=== PATIENT | female | born 1930 | race Caucasian/White ===

== ENCOUNTER 2016-12-30 08:35 | Inpatient (IN) | payer MEDICARE, BC ==
[2016-12-30] MEDS: Sodium Chloride 0.9% 1,000 ML IV SCH ×2 (09:00→23:44)
[2016-12-30] MEDS: Codeine/guaiFENesin 100mg-10 MG/5 ML Syrup 10 ML Cup PO PRN (10:15)
[2016-12-30] MEDS: cefTRIAXone 1 GM in Sodium Chloride 0.9% 50 ML IV SCH (10:21)
[2016-12-30] MEDS ORDERED: Levofloxacin/Dextrose 5%-Water 500 MG in Premix Bag 1 BAG IV SCH (10:30)
--- NOTE | 2016-12-30 10:39 | CR ---
Chest 2V HISTORY: pneumonia COMPARISON: 07/20/2015 FINDINGS: Heart size appears within normal limits. There is no vascular redistribution or pleural fl uid. Atherosclerotic aorta is redemonstrated. Old median sternotomy changes are noted. No acute infi ltrate is identified. There is an old healed fracture posterior lateral right seventh rib. Bony stru ctures are unremarkable. IMPRESSION: No acute chest abnormality or significant interval change compared with 07/20/2015.
[2016-12-30] MEDS: diphenhydrAMINE 25 MG Cap PO PRN (12:48)
[2016-12-30] MEDS: Acetaminophen 325 MG Tab PO PRN ×2 (12:59→21:06)
[2016-12-30] MEDS ORDERED: Ibuprofen 200 MG Tab PO PRN (19:13)
[2016-12-30] MEDS ORDERED: Docusate Sodium 100 MG Cap PO PRN (19:13)
[2016-12-30] MEDS ORDERED: Acetaminophen 325 MG Tab PO PRN (19:13)
[2016-12-30] MEDS ORDERED: traMADol 50 MG Tab PO PRN (19:13)
[2016-12-30] MEDS ORDERED: Pantoprazole 40 MG Tab.CR PO SCH (19:15)
[2016-12-30] MEDS: Albuterol/Ipratropium 3.0-0.5 MG/3 ML Neb Soln NEB SCH ×2 (19:42→23:44)
[2016-12-30] MEDS: Benzonatate 100 MG Cap PO PRN (19:42)
--- NOTE | 2016-12-30 19:59 | PCM.HP ---
H&P History of Present Illness - General Date of Service: 12/30/16 Source of Information: Patient, Family History Limitations: Reports: No limitations - History of Present Illness Initial Comments - Free Text/Narative: She has had a significant cough for one week. She initially had a low-grade fever. 3 days ago chief her Rocephin and started her on Zithromax. The next day I started her on Levaquin as well and the cough continued. She was not sleeping at night and was progressing with yellow material production. Onset of Symptoms: Reports: gradual Symptom Onset Date: 12/23/16 Duration of Symptoms: Reports: Day(s): Location: Reports: chest Improves with: Reports: None Worsens with: Reports: Other (worse with talking and Laying down) Bilateral Chest Pain Score (Numeric/FACES): 8 Generalized Pain Score (Numeric/FACES): 5 - Related Data Allergies/Adverse Reactions: Allergies Allergy/AdvReac Type Severity Reaction Status Date / Time ciprofloxacin HCl Allergy Rash Verified 11/15/15 18:29 [From Cipro] Latex, Natural Rubber Allergy Cannot Verified 11/15/15 18:29 Remember levofloxacin Allergy Rash Verified 12/30/16 12:27 Sulfa (Sulfonamide Allergy Rash Verified 11/15/15 18:29 Antibiotics) diazepam AdvReac Change Verified 11/15/15 18:29 Mental Status fentanyl AdvReac Change Verified 11/15/15 18:29 Mental Status hydrocodone [Hydrocodone] AdvReac Change Verified 11/15/15 18:29 Mental Status hydrocodone bitartrate AdvReac Change Verified 11/15/15 18:29 [From Lorcet 10/650] Mental Status hydromorphone HCl AdvReac Change Verified 11/15/15 18:29 [From Dilaudid] Mental Status morphine AdvReac Change Verified 11/15/15 18:29 Mental Status pregabalin [From Lyrica] AdvReac Change Verified 11/15/15 18:29 Mental Status Home Medications: Home Meds Levothyroxine [Synthroid] 88 mcg PO DAILY 05/28/13 [History] Multivitamin with Minerals [Multiple Vitamin] 1 tab PO DAILY 05/28/13 [History] ALPRAZolam [Xanax] 1 mg PO BEDTIME 05/29/13 [History] Metoprolol Succinate 25 mg PO BID 10/13/14 [History] atorvaSTATin [Lipitor] 40 mg PO DAILY 11/30/14 [History] Pantoprazole Sodium [Protonix] 40 mg PO DAILY 02/28/15 [History] Divalproex Sodium [Depakote ER] 250 mg PO DAILY #60 tab.sr.24h 03/02/15 [Rx] Docusate Sodium [Colace] 100 mg PO DAILY PRN 11/15/15 [History] Calcium Carbonate/Vitamin D3 [Calcium 500 + Vit D 400] 1 tab PO DAILY 03/03/16 [ History] Prazosin [Minpress] 2 mg PO DAILY 03/03/16 [History] Venlafaxine HCl [Venlafaxine ER] 75 mg PO BID 03/03/16 [History] Acetaminophen 650 mg PO BID PRN 12/30/16 [History] Ibuprofen [Advil] 400 mg PO BIDMEALS PRN 12/30/16 [History] traMADol [Ultram] 50 mg PO BID PRN 12/30/16 [History] Past Medical History HEENT History: Reports: Cataract Other HEENT History: removed remnants of tonsils. Cardiovascular History: Reports: Bypass, CAD, Hypertension, Stents Other Cardiovascular History: cabg Respiratory History: Reports: Other (see below) Other Respiratory History: recent cough lasting over a month Genitourinary History: Reports: Renal calculus Musculoskeletal History: Reports: Fibromyalgia Neurological History: Reports: Alzheimers disease, CVA, Seizure, TIA Psychiatric History: Reports: Depression, Suicide attempt, Suicidal ideation Endocrine/Metabolic History: Reports: Hypothyroidism Hematologic History: Reports: Anemia, Blood transfusion(s) Oncologic (Cancer) History: Reports: Basal cell carcinoma Other Oncologic History: Melanoma Dermatologic History: Reports: Melanoma Other Dermatologic History: healing wound to left forehead from a melanoma removal - Infectious Disease History Infectious Disease History: Reports: Chicken pox, Measles, Mumps, Rubella - Past Surgical History Cardiovascular Surgical History: Reports: Coronary artery bypass GI Surgical History: Reports: Cholecystectomy, Hernia, inguinal Female Surgical History: Reports: Lithotripsy/ESWL Musculoskeletal Surgical History: Reports: Knee replacement Social & Family History - Family History Family Medical History: Noncontributory - Tobacco Use Smoking Status *Q: Never Smoker Second Hand Smoke Exposure: No - Caffeine Use Caffeine Use: Reports: Coffee Other Caffeine Use: 2-3 cups per day - Alcohol Use Days Per Week of Alcohol Use: 1 Number of Drinks Per Day: 1 Total Drinks Per Week: 1 - Recreational Drug Use Recreational Drug Use: No H&P Review of Systems - Review of Systems: Review Of Systems: See Below General: Reports: fever, weakness, fatigue HEENT: Reports: sinus congestion, sore throat Pulmonary: Reports: Shortness of Breath, Cough, Sputum Cardiovascular: Reports: no symptoms Gastrointestinal: Reports: No symptoms Genitourinary: Reports: no symptoms Musculoskeletal: Reports: no symptoms Skin: Reports: no symptoms Psychiatric: Reports: anxiety Neurological: Reports: Trouble Speaking Hematologic/Lymphatic: Reports: no symptoms Immunologic: Reports: no symptoms Exam - Exam Exam: See Below - Vital Signs Vital Signs: Last Vital Signs Temp 98.2 F 12/30/16 16:00 Pulse 65 12/30/16 16:00 Resp 16 12/30/16 16:00 BP 149/54 H 12/30/16 16:00 Pulse Ox 96 12/30/16 16:00 Weight: 149 lb 0.52 oz - Exam General: alert, oriented, moderate distress HEENT: PERRLA, Hearing intact, Mucosa moist & pink, Nares patent, Normal nasal septum, Posterior pharynx clear, Conjunctiva clear, EOMI, EACs clear, TMs clear Neck: supple, trachea midline, 2 Lungs: Decreased breath sounds, Wheezing Cardiovascular: regular rate, regular rhythm Abdomen: normal bowel sounds, soft Back Exam: normal inspection, full range of motion, NT Extremities: normal inspection Peripheral Pulses: 1+: radial (L), radial (R) Skin: warm, dry, intact Neuro Extensive - Mental Status: alert, oriented x3, normal cognition, memory intact Neuro Extensive - Motor, Sensory, Reflexes: normal gait DTR: 1+: bicep (L), bicep (R), patella (L), patella (R) Psychiatric: anxious - Patient Data Lab Results last 24 hrs: Laboratory Results - last 24 hr 12/30/16 12/30/16 12/30/16 Range/Units 08:57 08:57 14:38 WBC 6.9 (4.5-11.0) K/uL RBC 3.99 (3.30-5.50) M/uL Hgb 12.6 (12.0-15.0) g/dL Hct 37.1 (36.0-48.0) % MCV 93 (80-98) fL MCH 32 H (27-31) pg MCHC 34 (32-36) % Plt Count 254 (150-400) K/uL Neut % (Auto) 51 (36-66) % Lymph % (Auto) 33 (24-44) % [place] % (Auto) 10 H (2-6) % Eos % (Auto) 4 (2-4) % Baso % (Auto) 2 H (0-1) % Sodium 136 L (140-148) mmol/L Potassium 4.0 (3.6-5.2) mmol/L Chloride 100 (100-108) mmol/L Carbon Dioxide 28 (21-32) mmol/L Anion Gap 12.0 (5.0-14.0) mmol/L BUN 8 (7-18) mg/dL Creatinine 0.7 (0.6-1.0) mg/dL Est Cr Clr Drug Dosing 41.44 mL/min Estimated GFR (MDRD) > 60 (>60) Glucose 94 (74-106) mg/dL Calcium 7.9 L (8.5-10.1) mg/dL Total Bilirubin 0.3 (0.2-1.0) mg/dL AST 19 (15-37) U/L ALT 25 (12-78) U/L Alkaline Phosphatase 113 (46-116) U/L Total Protein 6.8 (6.4-8.2) g/dL Albumin 3.3 L (3.4-5.0) g/dL Globulin 3.5 (2.3-3.5) g/dL Albumin/Globulin Ratio 0.9 L (1.2-2.2) Urine Color Yellow Urine Appearance Clear Urine pH 7.0 (4.5-8.0) Ur Specific [place] 1.010 (1.008-1.030) Urine Protein Negative (NEGATIVE) mg/dL Urine Glucose (UA) Normal (NEGATIVE) mg/dL Urine Ketones Negative (NEGATIVE) mg/dL Urine Occult Blood Moderate (NEGATIVE) Urine Nitrite Negative (NEGATIVE) Urine Bilirubin Negative (NEGATIVE) Urine Urobilinogen Normal (NORMAL) mg/dL Ur Leukocyte Esterase Negative (NEGATIVE) Urine RBC 10-20 H (0-5) Urine WBC 0-5 (0-5) Ur Epithelial Cells Not seen Amorphous Sediment Not seen Urine Bacteria Not seen Urine Mucus Not seen Result Diagrams: 12/30/16 08:57 12/30/16 08:57 Ned Results last 24 hrs: Microbiology 12/30/16 14:38 Gram Stain - Final Sputum - Expectorated *Q Meaningful Use (ADM) - VTE *Q VTE Criteria *Q: - Stroke *Q Stroke Criteria *Q: - AMI *Q AMI Criteria *Q: Problem List Initiated/Reviewed/Updated: Yes Orders Last 24hrs: Active Orders 24 hr Category Date Time Status RT Aerosol Therapy [RC] ASDIRECTED Care 12/30/16 19:17 Active Up ad Grace [RC] ASDIRECTED Care 12/30/16 09:13 Active Vital Signs [RC] Q2H Care 12/30/16 09:14 Active Regular Diet [DIET] Diet 12/30/16 Lunch Active CULTURE RESPIRATORY + SMEAR [RM] Routine Lab 12/30/16 14:38 Results ALPRAZolam [Xanax] Med 12/30/16 21:00 Active 1 mg PO BEDTIME Acetaminophen [Tylenol] Med 12/30/16 19:13 Active 650 mg PO BID PRN Acetaminophen [Tylenol] Med 12/30/16 12:51 Active 650 mg PO Q4H PRN Albuterol/Ipratropium [DuoNeb 3.0-0.5 MG/3 ML] Med 12/30/16 19:30 Active 3 ml NEB Q4H Benzonatate [Tessalon Perles] Med 12/30/16 19:18 Active 100 mg PO QID PRN Calcium Carbonate/Vitamin D3 [Caltrate 600+D 1500 MG- Med 12/30/16 19:15 Active 400 Units] 1 tab PO DAILY Codeine/guaiFENesin [Robitussin AC] Med 12/30/16 09:16 Active 5 - 10 ml PO Q4H PRN Divalproex Sodium [Depakote ER] Med 12/30/16 19:15 Active 250 mg PO DAILY Docusate Sodium [Colace] Med 12/30/16 19:13 Active 100 mg PO DAILY PRN Ibuprofen [Motrin] Med 12/30/16 19:13 Active 400 mg PO BIDMEALS PRN Metoprolol Succinate [Toprol XL] Med 12/30/16 21:00 Active 25 mg PO BID Multivitamins w-Iron/Ca/FA/Min [Thera M Plus] Med 12/30/16 19:15 Active 1 tab PO DAILY Pantoprazole [ProTONIX] Med 12/30/16 19:15 Active 40 mg PO DAILY Prazosin [Minpress] Med 12/30/16 19:15 Active 2 mg PO DAILY Sodium Chloride 0.9% [Normal Saline] 1,000 ml Med 12/30/16 09:15 Active IV ASDIRECTED Venlafaxine [Effexor XR] Med 12/30/16 21:00 Active 75 mg PO BID atorvaSTATin [Lipitor] Med 12/30/16 21:00 Active 40 mg PO BEDTIME cefTRIAXone [Rocephin] 1 gm Med 12/30/16 09:30 Active Sodium Chloride 0.9% [Normal Saline] 50 ml IV Q24H diphenhydrAMINE [Benadryl] Med 12/30/16 12:17 Active 25 mg PO Q6H PRN traMADol [Ultram] Med 12/30/16 19:13 Active 50 mg PO BID PRN Medication Orders Acetaminophen (Tylenol) 650 mg PO Q4H PRN PRN Reason: Pain Last Admin: 12/30/16 12:59 Dose: 650 mg Acetaminophen (Tylenol) 650 mg PO BID PRN PRN Reason: Pain (moderate 4-6) Albuterol/Ipratropium (Duoneb 3.0-0.5 Mg/3 Ml) 3 ml NEB Q4H SUPA Last Admin: 12/30/16 19:42 Dose: 3 ml Alprazolam (Xanax) 1 mg PO BEDTIME SUPA Atorvastatin Calcium (Lipitor) 40 mg PO BEDTIME SUPA Benzonatate (Tessalon Perles) 100 mg PO QID PRN PRN Reason: Cough Last Admin: 12/30/16 19:42 Dose: 100 mg Calcium Carbonate (Caltrate 600+D 1500 Mg-400 Units) 1 tab PO DAILY SUPA Diphenhydramine HCl (Benadryl) 25 mg PO Q6H PRN PRN Reason: Itching Last Admin: 12/30/16 12:48 Dose: 25 mg Divalproex Sodium (Depakote Er) 250 mg PO DAILY SUPA Docusate Sodium (Colace) 100 mg PO DAILY PRN PRN Reason: Constipation Guaifenesin/Codeine Phosphate (Robitussin Ac) 5 - 10 ml PO Q4H PRN PRN Reason: Cough Last Admin: 12/30/16 10:15 Dose: 10 ml Sodium Chloride (Normal Saline) 1,000 mls @ 75 mls/hr IV ASDIRECTED SUPA Last Admin: 12/30/16 09:00 Dose: 75 mls/hr Ceftriaxone Sodium 1 gm/ (Sodium Chloride) 50 mls @ 100 mls/hr IV Q24H SUPA Last Admin: 12/30/16 10:21 Dose: 100 mls/hr Ibuprofen (Motrin) 400 mg PO BIDMEALS PRN PRN Reason: Pain (moderate 4-6) Metoprolol Succinate (Toprol Xl) 25 mg PO BID SUPA Multivitamins/Minerals (Thera M Plus) 1 tab PO DAILY SUPA Pantoprazole Sodium (Protonix) 40 mg PO DAILY SUPA Prazosin HCl (Minpress) 2 mg PO DAILY SUPA Tramadol HCl (Ultram) 50 mg PO BID PRN PRN Reason: Pain (moderate 4-6) Venlafaxine HCl (Effexor Xr) 75 mg PO BID [facility] Assessment/Plan Comment:: Assessment/plan: #1. Acute bronchitis with a violent cough. She is not sleeping I have put her in the hospital and will start respiratory therapy and antibiotics. #2. Atherosclerotic heart disease: Condition stable. #3. Claudication lower extremities: Stable at present #4. Depression. Stable at the present time. #5. Status post cerebrovascular accident with partial aphasia: Condition stable #6. Hypertension: Condition stable #7. Status post seizure activity condition stable. #8. History of breast carcinoma.
[2016-12-30] MEDS: atorvaSTATin 20 MG Tab PO SCH (20:31)
[2016-12-30] MEDS: Metoprolol Succinate 25 MG Tab.ER PO SCH (20:32)
[2016-12-30] MEDS: Calcium Carbonate/Vitamin D3 1500 MG-400 Units Tab PO SCH (20:32)
[2016-12-30] MEDS: Divalproex Sodium 250 MG Tab.ER PO SCH (20:32)
[2016-12-30] MEDS: Prazosin 1 MG Cap PO SCH (20:32)
[2016-12-30] MEDS: ALPRAZolam 0.5 MG Tab PO SCH (20:32)
[2016-12-30] MEDS: Venlafaxine 75 MG Cap.ER PO SCH (20:32)
[2016-12-30] MEDS: Multivitamins with Iron/Calcium/Folic Acid/Minerals Tab PO SCH (20:33)
[2016-12-31] MEDS: Codeine/guaiFENesin 100mg-10 MG/5 ML Syrup 10 ML Cup PO PRN (03:20)
[2016-12-31] MEDS: Benzonatate 100 MG Cap PO PRN ×2 (03:20→22:00)
[2016-12-31] MEDS: Albuterol/Ipratropium 3.0-0.5 MG/3 ML Neb Soln NEB SCH ×6 (03:20→22:20)
[2016-12-31] MEDS ORDERED: Ibuprofen 400 MG Tab PO PRN (07:22)
[2016-12-31] MEDS: Pantoprazole 40 MG Tab.CR PO SCH (08:15)
[2016-12-31] MEDS: cefTRIAXone 1 GM in Sodium Chloride 0.9% 50 ML IV SCH (08:53)
--- NOTE | 2016-12-31 09:32 | CT ---
Chest wo Cont HISTORY: ? pneumonia Axial spiral noncontrasted CT scan of the chest was obtained along with coronal and MIP reconstructi ons. Comparison plain chest radiographs are dated 12/30/2016. FINDINGS: Small to moderate left pleural effusion is present with mild adjacent compressive atelecta sis. No significant right pleural fluid is seen. There is mild atelectasis left lingula. No acute in filtrate is identified. I see no interstitial edema. Heart size is within normal limits. There is calcification in the mitral valve annulus. Prominent co ronary artery calcification is noted. There are old median sternotomy changes. No obvious hilar or m ediastinal mass or adenopathy can be seen. Atherosclerotic aorta is noted. Upper abdominal structure s are unremarkable. IMPRESSION: 1. Small to moderate left pleural effusion with adjacent mild compressive atelectasis. 2. No acute infiltrate or other acute chest abnormality is identified. 3. Atherosclerotic aorta, coronary artery calcification, and mitral valve annulus calcifications are noted. 4. Old median sternotomy changes. Total DLP 577 mGycm
[2016-12-31] MEDS: Divalproex Sodium 250 MG Tab.ER PO SCH (09:45)
[2016-12-31] MEDS: Calcium Carbonate/Vitamin D3 1500 MG-400 Units Tab PO SCH (09:45)
[2016-12-31] MEDS: Venlafaxine 75 MG Cap.ER PO SCH ×2 (09:45→21:57)
[2016-12-31] MEDS: Multivitamins with Iron/Calcium/Folic Acid/Minerals Tab PO SCH (09:45)
[2016-12-31] MEDS: Prazosin 1 MG Cap PO SCH (09:45)
[2016-12-31] MEDS: Metoprolol Succinate 25 MG Tab.ER PO SCH ×2 (09:46→21:57)
[2016-12-31] MEDS ORDERED: Benzocaine/Cetylpyridinium/Menthol Lozenge MUCMEM PRN (17:47)
--- NOTE | 2016-12-31 17:54 | PCM.PN ---
- General Info Date of Service: 12/31/16 Subjective Update: She says coughing has improved significantly. Functional Status: Reports: pain controlled - Review of Systems General: Reports: Fatigue HEENT: Reports: no symptoms Pulmonary: Reports: shortness of breath, cough, wheezing Cardiovascular: Reports: No Symptoms Gastrointestinal: Reports: No symptoms Genitourinary: Reports: no symptoms Musculoskeletal: Reports: no symptoms Skin: Reports: no symptoms Neurological: Reports: No Symptoms Psychiatric: Reports: no symptoms - Patient Data Vitals - most recent: Last Vital Signs Temp 98.8 F 12/31/16 15:00 Pulse 76 12/31/16 15:10 Resp 18 12/31/16 15:00 BP 140/54 L 12/31/16 15:00 Pulse Ox 98 12/31/16 15:00 Weight - most recent: 149 lb 0.52 oz I&O - last 24 hours: Intake & Output 12/31/16 12/31/16 12/31/16 06:59 14:59 22:59 Intake Total 1437 400 300 Balance 1437 400 300 Ned Results last 24 hrs: Microbiology 12/30/16 14:38 Gram Stain - Final Sputum - Expectorated Med Orders - Current: Current Medications Acetaminophen (Tylenol) 650 mg PO Q4H PRN PRN Reason: Pain Last Admin: 12/30/16 21:06 Dose: 650 mg Acetaminophen (Tylenol) 650 mg PO BID PRN PRN Reason: Pain (moderate 4-6) Albuterol/Ipratropium (Duoneb 3.0-0.5 Mg/3 Ml) 3 ml NEB Q4H REPLACED BY [facility] Last Admin: 12/31/16 15:05 Dose: 3 ml Alprazolam (Xanax) 1 mg PO BEDTIME SUPA Last Admin: 12/30/16 20:32 Dose: 1 mg Atorvastatin Calcium (Lipitor) 40 mg PO BEDTIME REPLACED BY [facility] Last Admin: 12/30/16 20:31 Dose: 40 mg Benzocaine/Menthol (Cepacol Sore Throat) 1 lozenge MUCMEM 6XDAY PRN PRN Reason: Sore Throat Benzonatate (Tessalon Perles) 100 mg PO QID PRN PRN Reason: Cough Last Admin: 12/31/16 03:20 Dose: 100 mg Calcium Carbonate (Caltrate 600+D 1500 Mg-400 Units) 1 tab PO DAILY REPLACED BY [facility] Last Admin: 12/31/16 09:45 Dose: 1 tab Diphenhydramine HCl (Benadryl) 25 mg PO Q6H PRN PRN Reason: Itching Last Admin: 12/30/16 12:48 Dose: 25 mg Divalproex Sodium (Depakote Er) 250 mg PO DAILY REPLACED BY [facility] Last Admin: 12/31/16 09:45 Dose: 250 mg Docusate Sodium (Colace) 100 mg PO DAILY PRN PRN Reason: Constipation Last Admin: 12/30/16 21:06 Dose: 100 mg Guaifenesin/Codeine Phosphate (Robitussin Ac) 5 - 10 ml PO Q4H PRN PRN Reason: Cough Last Admin: 12/31/16 03:20 Dose: 10 ml Ceftriaxone Sodium 1 gm/ (Sodium Chloride) 50 mls @ 100 mls/hr IV Q24H REPLACED BY [facility] Last Admin: 12/31/16 08:53 Dose: 100 mls/hr Ibuprofen (Motrin) 400 mg PO BIDMEALS PRN PRN Reason: Pain (moderate 4-6) Metoprolol Succinate (Toprol Xl) 25 mg PO BID REPLACED BY [facility] Last Admin: 12/31/16 09:46 Dose: 25 mg Multivitamins/Minerals (Thera M Plus) 1 tab PO DAILY REPLACED BY [facility] Last Admin: 12/31/16 09:45 Dose: 1 tab Pantoprazole Sodium (Protonix) 40 mg PO DAILY@0730 REPLACED BY [facility] Last Admin: 12/31/16 08:15 Dose: 40 mg Prazosin HCl (Minpress) 2 mg PO DAILY REPLACED BY [facility] Last Admin: 12/31/16 09:45 Dose: 2 mg Tramadol HCl (Ultram) 50 mg PO BID PRN PRN Reason: Pain (moderate 4-6) Last Admin: 12/31/16 15:29 Dose: 50 mg Venlafaxine HCl (Effexor Xr) 75 mg PO BID REPLACED BY [facility] Last Admin: 12/31/16 09:45 Dose: 75 mg Discontinued Medications Albuterol/Ipratropium (Duoneb 3.0-0.5 Mg/3 Ml) 3 ml NEB Q4H REPLACED BY [facility] Last Admin: 12/31/16 07:30 Dose: 3 ml Levofloxacin/Dextrose 500 mg/ (Premix) 100 mls @ 100 mls/hr IV Q24H REPLACED BY [facility] Last Admin: 12/30/16 11:10 Dose: 100 mls/hr Sodium Chloride (Normal Saline) 1,000 mls @ 75 mls/hr IV ASDIRECTED REPLACED BY [facility] Last Admin: 12/30/16 23:44 Dose: 75 mls/hr Ibuprofen (Motrin) 400 mg PO BIDMEALS PRN PRN Reason: Pain (moderate 4-6) Pantoprazole Sodium (Protonix) 40 mg PO DAILY REPLACED BY [facility] Last Admin: 12/30/16 20:32 Dose: 40 mg - Exam General: alert, oriented HEENT: Pupils equal, Pupils reactive, EOMI, Mucous membr. moist/pink Neck: supple Lungs: Other (This morning she still had significant amount of wheezing and this afternoon her lungs are clear. She was able for the first time to take a deep breath without coughing.) Cardiovascular: Regular Rate, Regular Rhythm Abdomen: bowel sounds present, soft, no tenderness, no distension Back Exam: vertebral tenderness Peripheral Pulses: 2+: radial (L), radial (R) Skin: warm, dry, intact - Problem List Review Problem List Initiated/Reviewed/Updated: Yes - My Orders Last 24 Hours: My Active Orders 12/30/16 19:13 Acetaminophen [Tylenol] 650 mg PO BID PRN Docusate Sodium [Colace] 100 mg PO DAILY PRN traMADol [Ultram] 50 mg PO BID PRN 12/30/16 19:15 Calcium Carbonate/Vitamin D3 [Caltrate 600+D 1500 MG-400 Units] 1 tab PO DAILY Divalproex Sodium [Depakote ER] 250 mg PO DAILY Multivitamins w-Iron/Ca/FA/Min [Thera M Plus] 1 tab PO DAILY Prazosin [Minpress] 2 mg PO DAILY 12/30/16 19:17 RT Aerosol Therapy [RC] ASDIRECTED 12/30/16 19:18 Benzonatate [Tessalon Perles] 100 mg PO QID PRN 12/30/16 21:00 ALPRAZolam [Xanax] 1 mg PO BEDTIME Metoprolol Succinate [Toprol XL] 25 mg PO BID Venlafaxine [Effexor XR] 75 mg PO BID atorvaSTATin [Lipitor] 40 mg PO BEDTIME 12/31/16 07:22 Ibuprofen [Motrin] 400 mg PO BIDMEALS PRN 12/31/16 07:30 Pantoprazole [ProTONIX] 40 mg PO DAILY@0730 12/31/16 10:00 Convert IV to Saline Lock [OM.PC] Routine 12/31/16 11:00 Albuterol/Ipratropium [DuoNeb 3.0-0.5 MG/3 ML] 3 ml NEB Q4H 12/31/16 11:58 Sequential Compression Device [OM.PC] Routine 12/31/16 17:47 Benzocaine/Cetylpyrd/Menthol [Cepacol Sore Throat] 1 lozenge MUCMEM 6XDAY PRN - Plan Plan:: Assessment/plan: #1. Acute bronchitis. Her cough has improved significantly we 'll continue with the same medication and will consider discharge home tomorrow if continued improvement. #2. Atherosclerotic heart disease: Condition stable. #3. Claudication lower extremities: Stable at present #4. Depression. Stable #5. Status post cerebrovascular accident with partial aphasia: Condition stable #6. Hypertension: Condition stable #7. Status post seizure activity condition stable. #8. History of breast carcinoma.
[2016-12-31] MEDS: ALPRAZolam 0.5 MG Tab PO SCH (21:57)
[2016-12-31] MEDS: diphenhydrAMINE 25 MG Cap PO PRN (21:57)
[2016-12-31] MEDS: atorvaSTATin 20 MG Tab PO SCH (21:57)
[2017-01-01] MEDS: Albuterol/Ipratropium 3.0-0.5 MG/3 ML Neb Soln NEB SCH ×2 (03:47→07:09)
[2017-01-01] MEDS: Pantoprazole 40 MG Tab.CR PO SCH (07:39)
[2017-01-01 07:51] VITALS: BP 145/54
[2017-01-01] MEDS: Divalproex Sodium 250 MG Tab.ER PO SCH (08:03)
[2017-01-01] MEDS: Metoprolol Succinate 25 MG Tab.ER PO SCH (08:03)
[2017-01-01] MEDS: Prazosin 1 MG Cap PO SCH (08:03)
[2017-01-01] MEDS: Calcium Carbonate/Vitamin D3 1500 MG-400 Units Tab PO SCH (08:03)
[2017-01-01] MEDS: Multivitamins with Iron/Calcium/Folic Acid/Minerals Tab PO SCH (08:04)
[2017-01-01] MEDS: Venlafaxine 75 MG Cap.ER PO SCH (08:04)
--- NOTE | 2017-01-01 08:36 | PCM.DCSUM1 ---
Discharge Summary - Hospital Course Brief History: She has had a significant cough for one week. She initially had a low-grade fever. 3 days ago I gave her Rocephin and started her on Zithromax. The next day I started her on Levaquin as well and the cough continued. She was not sleeping at night and was progressing with yellow material production. - Discharge Data Discharge Date: 01/01/17 Discharge Disposition: Home, Self-Care 01 Condition: Good - Patient Summary/Data Operative Procedure(s) Performed: She's had an esophageal gastroduodenoscopy with biopsy of the fundal polyp and colonoscopy without biopsy or polypectomy Complications: none Hospital Course: She was started on IV Levoquin and had a local skin reaction at the IV site. She gradually improved while in the hospital. S-ray showed no acute pathology. Lobs including cultures were unremarkable. - Patient Instructions Diet: Heart Healthy Diet Activity: As Tolerated Other/Special Instructions: Recheck in the office in one week. - Discharge Plan Home Medications: Home Meds Levothyroxine [Synthroid] 88 mcg PO DAILY 05/28/13 [History] Multivitamin with Minerals [Multiple Vitamin] 1 tab PO DAILY 05/28/13 [History] ALPRAZolam [Xanax] 1 mg PO BEDTIME 05/29/13 [History] Metoprolol Succinate 25 mg PO BID 10/13/14 [History] atorvaSTATin [Lipitor] 40 mg PO DAILY 11/30/14 [History] Pantoprazole Sodium [Protonix] 40 mg PO DAILY 02/28/15 [History] Divalproex Sodium [Depakote ER] 250 mg PO DAILY #60 tab.sr.24h 03/02/15 [Rx] Docusate Sodium [Colace] 100 mg PO DAILY PRN 11/15/15 [History] Calcium Carbonate/Vitamin D3 [Calcium 500 + Vit D 400] 1 tab PO DAILY 03/03/16 [ History] Prazosin [Minpress] 2 mg PO DAILY 03/03/16 [History] Venlafaxine HCl [Venlafaxine ER] 75 mg PO BID 03/03/16 [History] Acetaminophen 650 mg PO BID PRN 12/30/16 [History] Ibuprofen [Advil] 400 mg PO BIDMEALS PRN 12/30/16 [History] traMADol [Ultram] 50 mg PO BID PRN 12/30/16 [History] Codeine/guaiFENesin [Robitussin AC] 5 - 10 ml PO Q4H PRN #0 cup 01/01/17 [Rx] - Patient Data Vitals - Most Recent: Last Vital Signs Temp 99.3 F 01/01/17 07:49 Pulse 86 01/01/17 08:03 Resp 20 01/01/17 07:49 BP 145/54 H 01/01/17 08:03 Pulse Ox 94 L 01/01/17 07:49 Weight - Most Recent: 149 lb 0.52 oz I&O - Last 24 hours: Intake & Output 12/31/16 01/01/17 01/01/17 22:59 06:59 14:59 Intake Total 300 Balance 300 Lab Results - Last 24 hrs: Laboratory Results - last 24 hr 01/01/17 01/01/17 Range/Units 05:23 05:23 WBC 8.2 (4.5-11.0) K/uL RBC 3.72 (3.30-5.50) M/uL Hgb 11.5 L (12.0-15.0) g/dL Hct 35.2 L (36.0-48.0) % MCV 95 (80-98) fL MCH 31 (27-31) pg MCHC 33 (32-36) % Plt Count 246 (150-400) K/uL Neut % (Auto) 58 (36-66) % Lymph % (Auto) 26 (24-44) % [place] % (Auto) 11 H (2-6) % Eos % (Auto) 5 H (2-4) % Baso % (Auto) 1 (0-1) % Sodium 142 (140-148) mmol/L Potassium 4.3 (3.6-5.2) mmol/L Chloride 106 (100-108) mmol/L Carbon Dioxide 30 (21-32) mmol/L Anion Gap 6.5 (5.0-14.0) mmol/L BUN 10 (7-18) mg/dL Creatinine 0.7 (0.6-1.0) mg/dL Est Cr Clr Drug Dosing 41.44 mL/min Estimated GFR (MDRD) > 60 (>60) Glucose 95 (74-106) mg/dL Calcium 8.2 L (8.5-10.1) mg/dL Total Bilirubin 0.3 (0.2-1.0) mg/dL AST 15 (15-37) U/L ALT 22 (12-78) U/L Alkaline Phosphatase 98 (46-116) U/L Total Protein 6.4 (6.4-8.2) g/dL Albumin 3.2 L (3.4-5.0) g/dL Globulin 3.2 (2.3-3.5) g/dL Albumin/Globulin Ratio 1.0 L (1.2-2.2) MOHINDER Results - Last 24 hrs: Microbiology 12/30/16 14:38 Gram Stain - Final Sputum - Expectorated Respiratory Culture - Preliminary YEAST Med Orders - Current: Current Medications Acetaminophen (Tylenol) 650 mg PO Q4H PRN PRN Reason: Pain Last Admin: 12/30/16 21:06 Dose: 650 mg Acetaminophen (Tylenol) 650 mg PO BID PRN PRN Reason: Pain (moderate 4-6) Albuterol/Ipratropium (Duoneb 3.0-0.5 Mg/3 Ml) 3 ml NEB Q4H [facility] Last Admin: 01/01/17 07:09 Dose: 3 ml Alprazolam (Xanax) 1 mg PO BEDTIME SUPA Last Admin: 12/31/16 21:57 Dose: 1 mg Atorvastatin Calcium (Lipitor) 40 mg PO BEDTIME SUPA Last Admin: 12/31/16 21:57 Dose: 40 mg Benzocaine/Menthol (Cepacol Sore Throat) 1 lozenge MUCMEM 6XDAY PRN PRN Reason: Sore Throat Last Admin: 12/31/16 19:45 Dose: 1 radha Benzonatate (Tessalon Perles) 100 mg PO QID PRN PRN Reason: Cough Last Admin: 12/31/16 22:00 Dose: 100 mg Calcium Carbonate (Caltrate 600+D 1500 Mg-400 Units) 1 tab PO DAILY [facility] Last Admin: 01/01/17 08:03 Dose: 1 tab Diphenhydramine HCl (Benadryl) 25 mg PO Q6H PRN PRN Reason: Itching Last Admin: 12/31/16 21:57 Dose: 25 mg Divalproex Sodium (Depakote Er) 250 mg PO DAILY [facility] Last Admin: 01/01/17 08:03 Dose: 250 mg Docusate Sodium (Colace) 100 mg PO DAILY PRN PRN Reason: Constipation Last Admin: 12/30/16 21:06 Dose: 100 mg Guaifenesin/Codeine Phosphate (Robitussin Ac) 5 - 10 ml PO Q4H PRN PRN Reason: Cough Last Admin: 12/31/16 03:20 Dose: 10 ml Ceftriaxone Sodium 1 gm/ (Sodium Chloride) 50 mls @ 100 mls/hr IV Q24H [facility] Last Admin: 12/31/16 08:53 Dose: 100 mls/hr Ibuprofen (Motrin) 400 mg PO BIDMEALS PRN PRN Reason: Pain (moderate 4-6) Last Admin: 12/31/16 21:57 Dose: 400 mg Metoprolol Succinate (Toprol Xl) 25 mg PO BID [facility] Last Admin: 01/01/17 08:03 Dose: 25 mg Multivitamins/Minerals (Thera M Plus) 1 tab PO DAILY [facility] Last Admin: 01/01/17 08:04 Dose: 1 tab Pantoprazole Sodium (Protonix) 40 mg PO DAILY@0730 [facility] Last Admin: 01/01/17 07:39 Dose: 40 mg Prazosin HCl (Minpress) 2 mg PO DAILY [facility] Last Admin: 01/01/17 08:03 Dose: 2 mg Tramadol HCl (Ultram) 50 mg PO BID PRN PRN Reason: Pain (moderate 4-6) Last Admin: 12/31/16 15:29 Dose: 50 mg Venlafaxine HCl (Effexor Xr) 75 mg PO BID [facility] Last Admin: 01/01/17 08:04 Dose: 75 mg Discontinued Medications Albuterol/Ipratropium (Duoneb 3.0-0.5 Mg/3 Ml) 3 ml NEB Q4H [facility] Last Admin: 12/31/16 07:30 Dose: 3 ml Levofloxacin/Dextrose 500 mg/ (Premix) 100 mls @ 100 mls/hr IV Q24H [facility] Last Admin: 12/30/16 11:10 Dose: 100 mls/hr Sodium Chloride (Normal Saline) 1,000 mls @ 75 mls/hr IV ASDIRECTED [facility] Last Admin: 12/30/16 23:44 Dose: 75 mls/hr Ibuprofen (Motrin) 400 mg PO BIDMEALS PRN PRN Reason: Pain (moderate 4-6) Pantoprazole Sodium (Protonix) 40 mg PO DAILY [facility] Last Admin: 12/30/16 20:32 Dose: 40 mg *Q Meaningful Use (DIS) - VTE *Q VTE Criteria *Q: - Stroke *Q Stroke Criteria *Q: - AMI *Q AMI Criteria *Q:
--- NOTE | 2017-01-01 08:36 | PCM.PN ---
- General Info Date of Service: 01/01/17 Functional Status: Reports: pain controlled - Review of Systems General: Reports: No Symptoms, Other HEENT: Reports: no symptoms Pulmonary: Reports: cough, other (Mild cough infrequent presently) Cardiovascular: Reports: No Symptoms Gastrointestinal: Reports: No symptoms Genitourinary: Reports: no symptoms Musculoskeletal: Reports: no symptoms Skin: Reports: no symptoms Neurological: Reports: No Symptoms Psychiatric: Reports: no symptoms - Patient Data Vitals - most recent: Last Vital Signs Temp 99.3 F 01/01/17 07:49 Pulse 86 01/01/17 08:03 Resp 20 01/01/17 07:49 BP 145/54 H 01/01/17 08:03 Pulse Ox 94 L 01/01/17 07:49 Weight - most recent: 149 lb 0.52 oz I&O - last 24 hours: Intake & Output 12/31/16 01/01/17 01/01/17 22:59 06:59 14:59 Intake Total 300 Balance 300 Lab Results last 24 hrs: Laboratory Results - last 24 hr 01/01/17 01/01/17 Range/Units 05:23 05:23 WBC 8.2 (4.5-11.0) K/uL RBC 3.72 (3.30-5.50) M/uL Hgb 11.5 L (12.0-15.0) g/dL Hct 35.2 L (36.0-48.0) % MCV 95 (80-98) fL MCH 31 (27-31) pg MCHC 33 (32-36) % Plt Count 246 (150-400) K/uL Neut % (Auto) 58 (36-66) % Lymph % (Auto) 26 (24-44) % [place] % (Auto) 11 H (2-6) % Eos % (Auto) 5 H (2-4) % Baso % (Auto) 1 (0-1) % Sodium 142 (140-148) mmol/L Potassium 4.3 (3.6-5.2) mmol/L Chloride 106 (100-108) mmol/L Carbon Dioxide 30 (21-32) mmol/L Anion Gap 6.5 (5.0-14.0) mmol/L BUN 10 (7-18) mg/dL Creatinine 0.7 (0.6-1.0) mg/dL Est Cr Clr Drug Dosing 41.44 mL/min Estimated GFR (MDRD) > 60 (>60) Glucose 95 (74-106) mg/dL Calcium 8.2 L (8.5-10.1) mg/dL Total Bilirubin 0.3 (0.2-1.0) mg/dL AST 15 (15-37) U/L ALT 22 (12-78) U/L Alkaline Phosphatase 98 (46-116) U/L Total Protein 6.4 (6.4-8.2) g/dL Albumin 3.2 L (3.4-5.0) g/dL Globulin 3.2 (2.3-3.5) g/dL Albumin/Globulin Ratio 1.0 L (1.2-2.2) Ned Results last 24 hrs: Microbiology 12/30/16 14:38 Gram Stain - Final Sputum - Expectorated Respiratory Culture - Preliminary YEAST Med Orders - Current: Current Medications Acetaminophen (Tylenol) 650 mg PO Q4H PRN PRN Reason: Pain Last Admin: 12/30/16 21:06 Dose: 650 mg Acetaminophen (Tylenol) 650 mg PO BID PRN PRN Reason: Pain (moderate 4-6) Albuterol/Ipratropium (Duoneb 3.0-0.5 Mg/3 Ml) 3 ml NEB Q4H [facility] Last Admin: 01/01/17 07:09 Dose: 3 ml Alprazolam (Xanax) 1 mg PO BEDTIME [facility] Last Admin: 12/31/16 21:57 Dose: 1 mg Atorvastatin Calcium (Lipitor) 40 mg PO BEDTIME [facility] Last Admin: 12/31/16 21:57 Dose: 40 mg Benzocaine/Menthol (Cepacol Sore Throat) 1 lozenge MUCMEM 6XDAY PRN PRN Reason: Sore Throat Last Admin: 12/31/16 19:45 Dose: 1 radha Benzonatate (Tessalon Perles) 100 mg PO QID PRN PRN Reason: Cough Last Admin: 12/31/16 22:00 Dose: 100 mg Calcium Carbonate (Caltrate 600+D 1500 Mg-400 Units) 1 tab PO DAILY [facility] Last Admin: 01/01/17 08:03 Dose: 1 tab Diphenhydramine HCl (Benadryl) 25 mg PO Q6H PRN PRN Reason: Itching Last Admin: 12/31/16 21:57 Dose: 25 mg Divalproex Sodium (Depakote Er) 250 mg PO DAILY [facility] Last Admin: 01/01/17 08:03 Dose: 250 mg Docusate Sodium (Colace) 100 mg PO DAILY PRN PRN Reason: Constipation Last Admin: 12/30/16 21:06 Dose: 100 mg Guaifenesin/Codeine Phosphate (Robitussin Ac) 5 - 10 ml PO Q4H PRN PRN Reason: Cough Last Admin: 12/31/16 03:20 Dose: 10 ml Ceftriaxone Sodium 1 gm/ (Sodium Chloride) 50 mls @ 100 mls/hr IV Q24H [facility] Last Admin: 12/31/16 08:53 Dose: 100 mls/hr Ibuprofen (Motrin) 400 mg PO BIDMEALS PRN PRN Reason: Pain (moderate 4-6) Last Admin: 12/31/16 21:57 Dose: 400 mg Metoprolol Succinate (Toprol Xl) 25 mg PO BID [facility] Last Admin: 01/01/17 08:03 Dose: 25 mg Multivitamins/Minerals (Thera M Plus) 1 tab PO DAILY [facility] Last Admin: 01/01/17 08:04 Dose: 1 tab Pantoprazole Sodium (Protonix) 40 mg PO DAILY@0730 [facility] Last Admin: 01/01/17 07:39 Dose: 40 mg Prazosin HCl (Minpress) 2 mg PO DAILY [facility] Last Admin: 01/01/17 08:03 Dose: 2 mg Tramadol HCl (Ultram) 50 mg PO BID PRN PRN Reason: Pain (moderate 4-6) Last Admin: 12/31/16 15:29 Dose: 50 mg Venlafaxine HCl (Effexor Xr) 75 mg PO BID [facility] Last Admin: 01/01/17 08:04 Dose: 75 mg Discontinued Medications Albuterol/Ipratropium (Duoneb 3.0-0.5 Mg/3 Ml) 3 ml NEB Q4H [facility] Last Admin: 12/31/16 07:30 Dose: 3 ml Levofloxacin/Dextrose 500 mg/ (Premix) 100 mls @ 100 mls/hr IV Q24H [facility] Last Admin: 12/30/16 11:10 Dose: 100 mls/hr Sodium Chloride (Normal Saline) 1,000 mls @ 75 mls/hr IV ASDIRECTED [facility] Last Admin: 12/30/16 23:44 Dose: 75 mls/hr Ibuprofen (Motrin) 400 mg PO BIDMEALS PRN PRN Reason: Pain (moderate 4-6) Pantoprazole Sodium (Protonix) 40 mg PO DAILY [facility] Last Admin: 12/30/16 20:32 Dose: 40 mg - Exam General: alert HEENT: Pupils equal, Pupils reactive, EOMI, Mucous membr. moist/pink Neck: supple Lungs: Clear to auscultation, Normal respiratory effort Cardiovascular: Regular Rate, Regular Rhythm Abdomen: bowel sounds present, soft, no tenderness, no distension Extremities: no edema Peripheral Pulses: 2+: radial (L), radial (R) Skin: warm, dry, intact Psy/Mental Status: alert, normal affect, normal mood - Problem List Review Problem List Initiated/Reviewed/Updated: Yes - My Orders Last 24 Hours: My Active Orders 12/31/16 10:00 Convert IV to Saline Lock [OM.PC] Routine 12/31/16 11:00 Albuterol/Ipratropium [DuoNeb 3.0-0.5 MG/3 ML] 3 ml NEB Q4H 12/31/16 11:58 Sequential Compression Device [OM.PC] Routine 12/31/16 17:47 Benzocaine/Cetylpyrd/Menthol [Cepacol Sore Throat] 1 lozenge MUCMEM 6XDAY PRN - Plan Plan:: Assessment/plan: #1. Acute bronchitis Mush improved will discharge home today. #2. Atherosclerotic heart disease: Condition stable. #3. Claudication lower extremities: Stable at present #4. Depression. Stable at the present time. #5. Status post cerebrovascular accident with partial aphasia: Condition stable #6. Hypertension: Condition stable #7. Status post seizure activity condition stable. #8. History of breast carcinoma.
== END 2017-01-01 10:15 | disposition home or self-care (01) | DRG 203 ==
LOC: JP.ICU 08:35
PROVIDERS: ADMIT Internal Medicine; ATTEND Internal Medicine
DX: J20.9 Acute bronchitis, unspecified (principal); I69.920 Aphasia following unspecified cerebrovascular disease; I10 Essential (primary) hypertension; I25.10 Atherosclerotic heart disease of native coronary artery without angina pectoris; Z95.1 Presence of aortocoronary bypass graft; Z95.5 Presence of coronary angioplasty implant and graft; E03.9 Hypothyroidism, unspecified; M79.7 Fibromyalgia; G40.909 Epilepsy, unspecified, not intractable, without status epilepticus; F32.9 Major depressive disorder, single episode, unspecified; Z91.5 Personal history of self-harm; Z85.3 Personal history of malignant neoplasm of breast; Z85.820 Personal history of malignant melanoma of skin; Z85.828 Personal history of other malignant neoplasm of skin; I73.9 Peripheral vascular disease, unspecified; Z96.659 Presence of unspecified artificial knee joint; Z88.1 Allergy status to other antibiotic agents; Z91.040 Latex allergy status; Z88.5 Allergy status to narcotic agent; Z88.2 Allergy status to sulfonamides; Z88.8 Allergy status to other drugs, medicaments and biological substances; R05 Cough
CPT/HCPCS: 36415; 71020; 71020-26; 71250; 71250-26; 80053; 81001; 85025; 87070; 87077; 87205; 94640-76; A9270-GY; J0696; J1956; J7040; J7050; J7620

== ENCOUNTER 2017-05-06 12:20 | Inpatient (IN) | payer MEDICARE, BC ==
--- NOTE | 2017-05-06 12:46 | EDM.PDOC ---
ED HPI GENERAL MEDICAL PROBLEM - General Chief Complaint: Abdominal Pain Stated Complaint: [facility] Time Seen by Provider: 05/06/17 12:25 Source of Information: Reports: EMS, Family History Limitations: Denies: Physical Impairment (Patient isn't communicating) - History of Present Illness INITIAL COMMENTS - FREE TEXT/NARRATIVE: 86-year-old female brought in by EMS with worsening abdominal pain, shortness of breath and malaise. She initially did not want to come into the emergency room but was told we may be able to help her breathe so she decided to come in. 12-lead EKG done by EMS shows a minimal amount of ST depression in V1 and V2 otherwise no ST-T changes. She is not complaining of chest pain specifically. She had one bowel movement this morning, was able to eat a small amount of breakfast and had a cup of coffee. She looks uncomfortable, isn't communicating at this time. Onset: Gradual (Over the past 2-3 days) Location: Reports: Abdomen Severity: Moderate Associated Symptoms: Reports: Loss of Appetite, Malaise, Shortness of Breath, Weakness. Denies: Chest Pain, Fever/Chills - Related Data Allergies Allergy/AdvReac Type Severity Reaction Status Date / Time ciprofloxacin HCl Allergy Rash Verified 05/06/17 12:32 [From Cipro] Latex, Natural Rubber Allergy Cannot Verified 05/06/17 12:32 Remember levofloxacin Allergy Rash Verified 05/06/17 12:32 Sulfa (Sulfonamide Allergy Rash Verified 05/06/17 12:32 Antibiotics) diazepam AdvReac Change Verified 05/06/17 12:32 Mental Status fentanyl AdvReac Change Verified 05/06/17 12:32 Mental Status hydrocodone [Hydrocodone] AdvReac Change Verified 05/06/17 12:32 Mental Status hydrocodone bitartrate AdvReac Change Verified 05/06/17 12:32 [From Lorcet 10/650] Mental Status hydromorphone HCl AdvReac Change Verified 05/06/17 12:32 [From Dilaudid] Mental Status morphine AdvReac Change Verified 05/06/17 12:32 Mental Status pregabalin [From Lyrica] AdvReac Change Verified 05/06/17 12:32 Mental Status Home Meds: Home Meds Levothyroxine [Synthroid] 88 mcg PO DAILY 05/28/13 [History] Multivitamin with Minerals [Multiple Vitamin] 1 tab PO DAILY 05/28/13 [History] ALPRAZolam [Xanax] 1 mg PO BEDTIME 05/29/13 [History] atorvaSTATin [Lipitor] 40 mg PO DAILY 11/30/14 [History] Pantoprazole Sodium [Protonix] 40 mg PO DAILY 02/28/15 [History] Divalproex Sodium [Depakote ER] 250 mg PO DAILY #60 tab.sr.24h 03/02/15 [Rx] Docusate Sodium [Colace] 100 mg PO DAILY PRN 11/15/15 [History] Calcium Carbonate/Vitamin D3 [Calcium 500 + Vit D 400] 1 tab PO DAILY 03/03/16 [ History] Prazosin [Minpress] 2 mg PO DAILY 03/03/16 [History] Venlafaxine HCl [Venlafaxine ER] 75 mg PO BID 03/03/16 [History] Acetaminophen 650 mg PO BID PRN 12/30/16 [History] Ibuprofen [Advil] 400 mg PO BIDMEALS PRN 12/30/16 [History] Codeine/guaiFENesin [Robitussin AC] 5 - 10 ml PO Q4H PRN #0 cup 01/01/17 [Rx] Metoprolol Succinate [Toprol XL] 100 mg PO DAILY 05/06/17 [History] Past Medical History HEENT History: Reports: Cataract Other HEENT History: removed remnants of tonsils. Cardiovascular History: Reports: Bypass, CAD, Hypertension, Stents Other Cardiovascular History: cabg Respiratory History: Reports: Other (See Below) Other Respiratory History: recent cough lasting over a month Genitourinary History: Reports: Renal Calculus Musculoskeletal History: Reports: Fibromyalgia Neurological History: Reports: Alzheimers Disease, CVA, Seizure, TIA Psychiatric History: Reports: Depression, Suicide Attempt, Suicidal Ideation Endocrine/Metabolic History: Reports: Hypothyroidism Hematologic History: Reports: Anemia, Blood Transfusion(s) Oncologic (Cancer) History: Reports: Basal Cell Carcinoma Other Oncologic History: Melanoma Dermatologic History: Reports: Melanoma Other Dermatologic History: healing wound to left forehead from a melanoma removal - Infectious Disease History Infectious Disease History: Reports: Chicken Pox, Measles, Mumps, Rubella - Past Surgical History Cardiovascular Surgical History: Reports: Coronary Artery Bypass GI Surgical History: Reports: Cholecystectomy, Hernia, Inguinal Musculoskeletal Surgical History: Reports: Knee Replacement Social & Family History - Family History Family Medical History: Noncontributory - Tobacco Use Smoking Status *Q: Never Smoker Second Hand Smoke Exposure: No - Caffeine Use Caffeine Use: Reports: Coffee Other Caffeine Use: 2-3 cups per day - Alcohol Use Days Per Week of Alcohol Use: 1 Number of Drinks Per Day: 1 Total Drinks Per Week: 1 - Recreational Drug Use Recreational Drug Use: No ED ROS GENERAL - Review of Systems Review Of Systems: See Below Constitutional: Reports: Malaise, Weakness. Denies: Fever, Chills HEENT: Reports: No Symptoms Respiratory: Reports: Shortness of Breath, Wheezing Cardiovascular: Denies: Chest Pain GI/Abdominal: Reports: Abdominal Pain. Denies: Constipation, Diarrhea : Reports: No Symptoms Skin: Reports: Pallor Neurological: Reports: Confusion, Trouble Speaking ED EXAM, GI/ABD - Physical Exam Exam: See Below Exam Limited By: No Limitations General Appearance: Alert, No Apparent Distress (Not distressed but looks uncomfortable) Eyes: Bilateral: Normal Appearance (No jaundice) Respiratory/Chest: No Respiratory Distress, Decreased Breath Sounds (She has decreased breath sounds on the left side but there is also some wheezing present ), Wheezing (Diffuse inspiratory and expiratory wheezes are heard faintly) Cardiovascular: Regular Rate, Rhythm GI/Abdominal Exam: Distended (Moderate distended abdomen is possible), Tender ( Tender to palpation especially across the upper abdomen), Abnormal Bowel Sounds (Hypoactive bowel sounds) Extremities: Normal Inspection. No: Pedal Edema Neurological: Alert, Confused, Disoriented Psychiatric: Anxious Skin Exam: Warm, Dry Course - Vital Signs Last Recorded V/S: Last Vital Signs Temp 98.6 F 05/06/17 17:25 Pulse 66 05/06/17 17:25 Resp 16 05/06/17 17:25 BP 168/81 H 05/06/17 17:25 Pulse Ox 94 L 05/06/17 17:25 - Orders/Labs/Meds Orders: Medication Orders Divalproex Sodium (Depakote Er) 250 mg PO BEDTIME [facility] Docusate Sodium (Colace) 100 mg PO DAILY PRN PRN Reason: Constipation Levothyroxine Sodium (Synthroid) 88 mcg PO DAILY@0730 [facility] Metoprolol Succinate (Toprol Xl) 25 mg PO BID [facility] Multivitamins/Minerals (Thera M Plus) 1 tab PO DAILY [facility] Pantoprazole Sodium (Protonix) 40 mg PO ACBREAKFAST [facility] Prazosin HCl (Minpress) 2 mg PO DAILY [facility] Sodium Chloride (Saline Flush) 10 ml FLUSH ASDIRECTED PRN PRN Reason: Keep Vein Open Venlafaxine HCl (Effexor Xr) 75 mg PO BID [facility] Labs: Laboratory Tests 05/06/17 05/06/17 Range/Units 12:50 12:50 WBC 11.6 H (4.5-11.0) K/uL RBC 4.35 (3.30-5.50) M/uL Hgb 13.3 (12.0-15.0) g/dL Hct 39.4 (36.0-48.0) % MCV 91 (80-98) fL MCH 31 (27-31) pg MCHC 34 (32-36) % Plt Count 289 (150-400) K/uL Neut % (Auto) 78 H (36-66) % Lymph % (Auto) 12 L (24-44) % [place] % (Auto) 8 H (2-6) % Eos % (Auto) 2 (2-4) % Baso % (Auto) 1 (0-1) % Sodium 127 L (140-148) mmol/L Potassium 3.9 (3.6-5.2) mmol/L Chloride 92 L (100-108) mmol/L Carbon Dioxide 27 (21-32) mmol/L Anion Gap 11.9 (5.0-14.0) mmol/L BUN 13 (7-18) mg/dL Creatinine 0.7 (0.6-1.0) mg/dL Est Cr Clr Drug Dosing 41.44 mL/min Estimated GFR (MDRD) > 60 (>60) Glucose 131 H (74-106) mg/dL Calcium 8.3 L (8.5-10.1) mg/dL Total Bilirubin 0.4 (0.2-1.0) mg/dL AST 27 D (15-37) U/L ALT 39 D (12-78) U/L Alkaline Phosphatase 112 (46-116) U/L Troponin I < 0.017 (0.000-0.056) ng/mL Total Protein 7.4 (6.4-8.2) g/dL Albumin 3.7 (3.4-5.0) g/dL Globulin 3.7 H (2.3-3.5) g/dL Albumin/Globulin Ratio 1.0 L (1.2-2.2) Meds: Medications Generic Name Dose Route Start Last Admin Trade Name Freq PRN Reason Stop Dose Admin Divalproex Sodium 250 mg 05/06/17 21:00 Depakote Er PO BEDTIME SU[facility] Docusate Sodium 100 mg 05/06/17 14:41 Colace PO DAILY PRN Constipation Levothyroxine Sodium 88 mcg 05/07/17 07:30 Synthroid PO DAILY@0730 [facility] Metoprolol Succinate 25 mg 05/06/17 21:00 Toprol Xl PO BID [facility] Multivitamins/Minerals 1 tab 05/07/17 09:00 Thera M Plus PO DAILY [facility] Pantoprazole Sodium 40 mg 05/07/17 07:30 Protonix PO ACBREAKFAST [facility] Prazosin HCl 2 mg 05/07/17 09:00 Minpress PO DAILY [facility] Sodium Chloride 10 ml 05/06/17 14:37 Saline Flush FLUSH ASDIRECTED PRN Keep Vein Open Venlafaxine HCl 75 mg 05/06/17 21:00 Effexor Xr PO BID [facility] - Re-Assessments/Exams Free Text/Narrative Re-Assessment/Exam: 05/06/17 12:44 CBC, CMP were obtained with the intention of getting a CT scan of the abdomen. 05/06/17 14:10 A chest x-ray as well as a CT scan of the abdomen and pelvis were obtained. She has a very large left pleural effusion with underlying atelectasis or possible pneumonia. No masses seen. I discussed this with her primary care provider Dr. Gomez and he will come over to see the patient and admit her for pleurocentesis. Departure - Departure Time of Disposition: 17:22 Disposition: Admitted As Inpatient 66 Condition: Poor Clinical Impression: Pleural effusion Dyspnea Qualifiers: Dyspnea type: shortness of breath Qualified Code(s): R06.02 - Shortness of breath - Discharge Information
--- NOTE | 2017-05-06 14:05 | CT ---
Abdomen Pelvis wo Cont HISTORY: abdominal pain, cough Axial spiral noncontrasted CT scan of the abdomen and pelvis was obtained along with coronal reconst ructions. COMPARISON: CT chest, 12/31/2016. FINDINGS: Large left pleural effusion is present with prominent atelectasis left lower lobe. There i s a moderately large right pleural effusion with mild adjacent compressive atelectasis. Respiratory motion artifact is noted limiting the exam. There is mild cardiomegaly. Atherosclerotic aorta and co ronary artery calcification are noted. Calcification can be seen in the mitral valve annulus. Old me [place] sternotomy changes are noted. Lack of IV contrast limits somatic evaluation. No obvious focal abnormality of the liver, spleen, pa ncreas, or adrenal glands is identified. Gallbladder is surgically absent. No biliary duct dilatatio n can be seen. No obvious renal mass or hydronephrosis is identified. I see no definite renal or ure teral calculi. No ureteral dilatation is seen. No pelvic mass is identified. A few diverticula are noted in the sigmoid colon. I see no signs of ac [place] diverticulitis. There is small amount of free fluid is noted in the lower pelvis. I see no pelvi c, retroperitoneal, or mesenteric adenopathy. No free air is identified. Small bowel loops are nondi stended. No other colon abnormality is seen. Appendix is not definitely identified. I see no inflamm ation or fluid about the base of the cecum. Diffuse degenerative changes are noted lower thoracic an d lumbar spine. There is slight rotoscoliosis of the lumbar spine convex to the right. No obvious ly tic or blastic bony lesion is seen. IMPRESSION: 1. Mild cardiomegaly. Large left pleural effusion with near complete atelectasis left lower lobe. r bronchograms are noted left lower lobe. Recommend clinical correlation for signs of acute CHF or f luid overload. Pneumonia is not excluded. Underlying malignancy is not excluded. 2. Moderately large right pleural effusion with mild adjacent compressive atelectasis. 3. Atherosclerotic aorta, coronary artery calcification, mitral valve annulus calcification, an old median sternotomy changes are noted. 4. Status post cholecystectomy. 5. A trace amount of free fluid can be seen in the pelvic cul-de-sac. 6. A few innocent appearing diverticula are noted in the sigmoid colon. 7. No other acute intra-abdominal or pelvic abnormality is identified. 8. Exam is limited by motion artifact and lack of contrast. Findings were discussed with Dr. Banegas in the Emergency Department at 1358 hours. Total DLP 767 mGycm
--- NOTE | 2017-05-06 14:09 | CR ---
Chest 1V Frontal HISTORY: cough, dyspnea COMPARISON: 12/30/2016 FINDINGS: Mild cardiomegaly appears similar to the prior exam. Old median sternotomy changes and ath erosclerotic aorta are redemonstrated. Superior pulmonary vasculature is prominent. There is a large left pleural effusion. Large subpulmonic component of effusion is seen on the accompanying CT exam. No definite right pleural fluid can see, however, there is a moderately large amount of right pleur al fluid on today's CT abdomen and pelvis study. Interstitial lung pattern is prominent diffusely. B heena structures are osteopenic. IMPRESSION: Cardiomegaly with vascular redistribution, probable interstitial edema, and pleural effu sions. Pleural fluid is better visualized and pleural effusions appear larger on today's CT abdomen and pelvis study. Recommend clinical correlation for acute CHF.
[2017-05-06] MEDS ORDERED: Sodium Chloride 0.9% 10 ML Syringe FLUSH PRN (14:37)
[2017-05-06] MEDS ORDERED: Docusate Sodium 100 MG Cap PO PRN (14:41)
--- NOTE | 2017-05-06 20:02 | PCM.HP ---
H&P History of Present Illness - General Date of Service: 05/06/17 Admit Problem/Dx: Admission Diagnosis/Problem Admission Diagnosis/Problem Congestive heart failure Source of Information: Patient, Family - History of Present Illness Initial Comments - Free Text/Narative: Gradual increase in shortness of kbreath over the last 3-4 days and became much worse this afternoon and came into the ER by EMS. She has a history of ASHD. Left Back Pain Score (Numeric/FACES): 3 Bilateral Leg Pain Score (Numeric/FACES): 7 Middle Abdominal Pain Score (Numeric/FACES): 3 Generalized Pain Score (Numeric/FACES): 7 - Related Data Allergies/Adverse Reactions: Allergies Allergy/AdvReac Type Severity Reaction Status Date / Time ciprofloxacin HCl Allergy Rash Verified 05/06/17 12:32 [From Cipro] Latex, Natural Rubber Allergy Cannot Verified 05/06/17 12:32 Remember levofloxacin Allergy Rash Verified 05/06/17 12:32 Sulfa (Sulfonamide Allergy Rash Verified 05/06/17 12:32 Antibiotics) diazepam AdvReac Change Verified 05/06/17 12:32 Mental Status fentanyl AdvReac Change Verified 05/06/17 12:32 Mental Status hydrocodone [Hydrocodone] AdvReac Change Verified 05/06/17 12:32 Mental Status hydrocodone bitartrate AdvReac Change Verified 05/06/17 12:32 [From Lorcet 10/650] Mental Status hydromorphone HCl AdvReac Change Verified 05/06/17 12:32 [From Dilaudid] Mental Status morphine AdvReac Change Verified 05/06/17 12:32 Mental Status pregabalin [From Lyrica] AdvReac Change Verified 05/06/17 12:32 Mental Status Home Medications: Home Meds Levothyroxine [Synthroid] 88 mcg PO DAILY 05/28/13 [History] Multivitamin with Minerals [Multiple Vitamin] 1 tab PO DAILY 05/28/13 [History] ALPRAZolam [Xanax] 1 mg PO BEDTIME 05/29/13 [History] atorvaSTATin [Lipitor] 40 mg PO DAILY 11/30/14 [History] Pantoprazole Sodium [Protonix] 40 mg PO DAILY 02/28/15 [History] Divalproex Sodium [Depakote ER] 250 mg PO DAILY #60 tab.sr.24h 03/02/15 [Rx] Docusate Sodium [Colace] 100 mg PO DAILY PRN 11/15/15 [History] Calcium Carbonate/Vitamin D3 [Calcium 500 + Vit D 400] 1 tab PO DAILY 03/03/16 [ History] Prazosin [Minpress] 2 mg PO DAILY 03/03/16 [History] Venlafaxine HCl [Venlafaxine ER] 75 mg PO BID 03/03/16 [History] Acetaminophen 650 mg PO BID PRN 12/30/16 [History] Ibuprofen [Advil] 400 mg PO BIDMEALS PRN 12/30/16 [History] Codeine/guaiFENesin [Robitussin AC] 5 - 10 ml PO Q4H PRN #0 cup 01/01/17 [Rx] Metoprolol Succinate [Toprol XL] 100 mg PO DAILY 05/06/17 [History] Acetaminophen [Tylenol] 650 mg PO BID 05/07/17 [History] traMADol HCl [Ultram] 50 mg PO BID 05/07/17 [History] Past Medical History HEENT History: Reports: Cataract, Hard of Hearing, Impaired Vision Other HEENT History: removed remnants of tonsils. Cardiovascular History: Reports: Bypass, CAD, Hypertension, Stents Other Cardiovascular History: cabg Respiratory History: Reports: Other (See Below) Other Respiratory History: pleural effusion this hospital stay, recent cough lasting over a month Genitourinary History: Reports: Renal Calculus Musculoskeletal History: Reports: Fibromyalgia Neurological History: Reports: CVA, Seizure, TIA, Other (See Below) Other Neuro History: CVA affecting Rt side per family Psychiatric History: Reports: Depression, Suicide Attempt, Suicidal Ideation Endocrine/Metabolic History: Reports: Hypothyroidism Hematologic History: Reports: Anemia, Blood Transfusion(s) Oncologic (Cancer) History: Reports: Basal Cell Carcinoma, Breast Other Oncologic History: Melanoma Dermatologic History: Reports: Melanoma Other Dermatologic History: healing wound to left forehead from a melanoma removal - Infectious Disease History Infectious Disease History: Reports: Chicken Pox, Measles, Mumps, Rubella - Past Surgical History Cardiovascular Surgical History: Reports: Coronary Artery Bypass Respiratory Surgical History: Reports: Thoracentesis GI Surgical History: Reports: Cholecystectomy, Hernia, Inguinal Female Surgical History: Reports: Mastectomy, Other (See Below) Other Female Surgeries/Procedures: breast ca and mastectomy Rt side Musculoskeletal Surgical History: Reports: Knee Replacement Oncologic Surgical History: Reports: Mastectomy, Other (See Below) Other Oncologic Surgeries/Procedures: Rt side Social & Family History - Family History Family Medical History: Noncontributory HEENT: Reports: None : Reports: Other (See Below) Other Family History: son, kidney transplant Oncologic: Reports: Pancreatic, Other (See Below) Other Oncologic Family History: son from pancreatic ca - Tobacco Use Smoking Status *Q: Never Smoker Second Hand Smoke Exposure: No - Caffeine Use Caffeine Use: Reports: Coffee Other Caffeine Use: 2-3 cups per day - Alcohol Use Days Per Week of Alcohol Use: 1 Number of Drinks Per Day: 1 Total Drinks Per Week: 1 - Recreational Drug Use Recreational Drug Use: No H&P Review of Systems - Review of Systems: Review Of Systems: See Below General: Reports: Weakness, Decreased Appetite HEENT: Reports: Sinus Congestion Pulmonary: Reports: Shortness of Breath, Wheezing, Cough, Sputum Cardiovascular: Reports: Dyspnea on Exertion Gastrointestinal: Reports: No Symptoms Genitourinary: Reports: No Symptoms Psychiatric: Reports: Depression Neurological: Reports: Difficulty Walking, Weakness, Gait Disturbance Exam - Exam Exam: See Below - Vital Signs Vital Signs: Last Vital Signs Temp 99.0 F 05/06/17 19:33 Pulse 67 05/06/17 19:33 Resp 20 05/06/17 19:33 BP 162/63 H 05/06/17 19:33 Pulse Ox 90 L 05/06/17 19:33 Weight: 149 lb 0.52 oz - Exam General: Oriented, Moderate Distress HEENT: PERRLA, Hearing Intact, Mucosa Moist & [place], Nares Patent, Normal Nasal Septum, Posterior Pharynx Clear, Conjunctiva Clear, EOMI, EACs Clear, TMs Clear Neck: Supple, Trachea Midline, 2 Lungs: Decreased Breath Sounds Cardiovascular: Regular Rate, Regular Rhythm GI/Abdominal Exam: Distended, Tender Extremities: Non-Tender Skin: Warm, Dry DTR: 1+: Bicep (L), Bicep (R) Psychiatric: Anxious - Patient Data Lab Results Last 24 hrs: Laboratory Results - last 24 hr 05/06/17 05/06/17 Range/Units 17:18 17:18 Fluid Type Thoracentesis fluid Thoracentesis fluid Fluid WBC 217 /ul Fluid RBC 520 /ul Fluid Mononuclear Cell 97 % Fl Polymorphonucl Cell 3 % Fluid Total Protein 2.2 g/dL Fluid LDH 47 IU/L Result Diagrams: 05/12/17 05:56 05/12/17 05:56 Ned Results Last 24 hrs: Microbiology 05/06/17 17:18 Gram Stain - Final Thoracentesis Fluid *Q Meaningful Use (ADM) - VTE *Q VTE Criteria *Q: - Stroke *Q Stroke Criteria *Q: - AMI *Q AMI Criteria *Q: Problem List Initiated/Reviewed/Updated: Yes Orders Last 24hrs: Active Orders 24 hr Category Date Time Status Overnight Pulse Oximetry [RC] Click to Edit Care 05/06/17 19:28 Active Cardiac Diet [Heart Healthy Diet] [DIET] Diet 05/06/17 Dinner Active Chest 1V Frontal [CR] Routine Exams 05/06/17 17:35 Taken US Guidance Thoracentesis NC [US] Stat Exams 05/06/17 15:20 Taken CELL COUNT,BODY FLUID [BF] Routine Lab 05/06/17 17:18 Results CULTURE BODY FLUID + SMEAR [RM] Routine Lab 05/06/17 17:18 Results SPECIFIC GRAVITY,FLUID [REF] Routine Lab 05/06/17 17:18 Received ALPRAZolam [Xanax] Med 05/06/17 21:00 Ordered 1 mg PO BEDTIME Codeine/guaiFENesin [Robitussin AC] Med 05/06/17 19:53 Ordered 5 - 10 ml PO Q4H PRN Divalproex Sodium [Depakote ER] Med 05/06/17 21:00 Active 250 mg PO BEDTIME Docusate Sodium [Colace] Med 05/06/17 14:41 Active 100 mg PO DAILY PRN Levothyroxine [Synthroid] Med 05/07/17 07:30 Active 88 mcg PO DAILY@0730 Metoprolol Succinate [Toprol XL] Med 05/07/17 09:00 Ordered 100 mg PO DAILY Multivitamins w-Iron/Ca/FA/Min [Thera M Plus] Med 05/07/17 09:00 Active 1 tab PO DAILY Pantoprazole [ProTONIX] Med 05/07/17 07:30 Active 40 mg PO ACBREAKFAST Prazosin [Minpress] Med 05/07/17 09:00 Active 2 mg PO DAILY Venlafaxine [Effexor XR] Med 05/06/17 21:00 Active 75 mg PO BID Pulse Oximetry Continuous Monitoring [OM.PC] Routine Oth 05/06/17 19:28 Ordered SCD [Sequential Compression Device] [OM.PC] Routine Oth 05/06/17 19:31 Ordered Ultrasound Chest Marking [OM.PC] Routine Ot 05/06/17 14:44 Ordered Medication Orders Divalproex Sodium (Depakote Er) 250 mg PO BEDTIME SUPA Docusate Sodium (Colace) 100 mg PO DAILY PRN PRN Reason: Constipation Levothyroxine Sodium (Synthroid) 88 mcg PO DAILY@0730 [facility] Multivitamins/Minerals (Thera M Plus) 1 tab PO DAILY SUPA Pantoprazole Sodium (Protonix) 40 mg PO ACBREAKFAST SUPA Prazosin HCl (Minpress) 2 mg PO DAILY [facility] Sodium Chloride (Saline Flush) 10 ml FLUSH ASDIRECTED PRN PRN Reason: Keep Vein Open Venlafaxine HCl (Effexor Xr) 75 mg PO BID SUPA Assessment/Plan Comment:: Assessment/plan: #1. CHF With bilateral pleural fluid. Have tapped the lung and removes 1400 cc clear fluid #2. ASHD: Stable presently #3. Hypertension. Will monitor BP and treat as needed #4. Ca breast: Right side mastectomy #5. History of NM #6. History CVA: #7. History of seizures: continue with medicine.
[2017-05-06] MEDS ORDERED: Furosemide 20 MG Tab PO ONE (20:15)
[2017-05-06] MEDS ORDERED: Metoprolol Succinate 25 MG Tab.ER PO SCH (21:00)
[2017-05-06] MEDS: Divalproex Sodium 250 MG Tab.ER PO SCH (21:06)
[2017-05-06] MEDS: Codeine/guaiFENesin 100mg-10 MG/5 ML Syrup 10 ML Cup PO PRN (21:06)
[2017-05-06] MEDS: Venlafaxine 75 MG Cap.ER PO SCH (21:07)
[2017-05-06] MEDS: ALPRAZolam 0.5 MG Tab PO SCH (21:09)
[2017-05-07] MEDS: Codeine/guaiFENesin 100mg-10 MG/5 ML Syrup 10 ML Cup PO PRN ×2 (02:54→20:38)
[2017-05-07] MEDS: Pantoprazole 40 MG Tab.CR PO SCH (08:09)
[2017-05-07] MEDS: Levothyroxine 88 MCG Tab PO SCH (08:11)
[2017-05-07] MEDS: Prazosin 1 MG Cap PO SCH (08:12)
[2017-05-07] MEDS: Metoprolol Succinate 50 MG Tab.ER PO SCH (08:14)
[2017-05-07] MEDS: Furosemide 20 MG Tab PO SCH (08:15)
[2017-05-07] MEDS: Multivitamins with Iron/Calcium/Folic Acid/Minerals Tab PO SCH (08:15)
[2017-05-07] MEDS: Venlafaxine 75 MG Cap.ER PO SCH ×2 (08:16→20:23)
--- NOTE | 2017-05-07 08:38 | CR ---
Chest 1V Frontal HISTORY: post thoracentesis FINDINGS: Portable chest, 1737 hours. Patient is status post thoracentesis. No pneumothorax or other postthoracentesis complication is identified. Small bilateral pleural effusions seen. Heart size is within normal limits and stable. Old median sternotomy changes are noted. Pulmonary vasculature is not engorged. No acute infiltrate is seen. IMPRESSION: No postthoracentesis pneumothorax or other complication is identified.
[2017-05-07] MEDS: Potassium Chloride 20 MEQ Tab.ER PO SCH (09:49)
[2017-05-07] MEDS: traMADol 50 MG Tab PO SCH ×2 (10:38→17:10)
[2017-05-07] MEDS: Acetaminophen 325 MG Tab PO SCH ×2 (12:29→20:22)
--- NOTE | 2017-05-07 17:56 | PCM.PN ---
- General Info Date of Service: 05/07/17 Admission Dx/Problem (Free Text): She is breathing better presently still weak. Functional Status: Reports: Pain Controlled - Review of Systems General: Reports: Weakness HEENT: Reports: No Symptoms Pulmonary: Reports: No Symptoms Cardiovascular: Reports: No Symptoms Gastrointestinal: Reports: Abdominal Pain Genitourinary: Reports: No Symptoms Musculoskeletal: Reports: Hand Pain, Foot Pain, Joint Pain Skin: Reports: No Symptoms Psychiatric: Reports: Anxiety - Patient Data Vitals - Most Recent: Last Vital Signs Temp 97.6 F 05/07/17 15:35 Pulse 71 05/07/17 15:35 Resp 18 05/07/17 15:35 BP 100/51 L 05/07/17 15:35 Pulse Ox 99 05/07/17 15:35 Weight - Most Recent: 149 lb 0.52 oz I&O - Last 24 Hours: Intake & Output 05/07/17 05/07/17 05/07/17 06:59 14:59 22:59 Intake Total 240 360 Output Total 950 500 100 Balance -710 -140 -100 Lab Results Last 24 Hours: Laboratory Results - last 24 hr 05/06/17 05/06/17 05/07/17 Range/Units 17:18 17:18 05:40 WBC 13.2 H (4.5-11.0) K/uL RBC 4.34 (3.30-5.50) M/uL Hgb 13.3 (12.0-15.0) g/dL Hct 39.5 (36.0-48.0) % MCV 91 (80-98) fL MCH 31 (27-31) pg MCHC 34 (32-36) % Plt Count 264 (150-400) K/uL Neut % (Auto) 85 H (36-66) % Lymph % (Auto) 10 L (24-44) % Bell % (Auto) 4 (2-6) % Eos % (Auto) 1 L (2-4) % Baso % (Auto) 1 (0-1) % Sodium (140-148) mmol/L Potassium (3.6-5.2) mmol/L Chloride (100-108) mmol/L Carbon Dioxide (21-32) mmol/L Anion Gap (5.0-14.0) mmol/L BUN (7-18) mg/dL Creatinine (0.6-1.0) mg/dL Est Cr Clr Drug Dosing mL/min Estimated GFR (MDRD) (>60) Glucose (74-106) mg/dL Calcium (8.5-10.1) mg/dL Fluid Type Thoracentesis fluid Thoracentesis fluid Fluid WBC 217 /ul Fluid RBC 520 /ul Fluid Diff Comment Not Reportable Fluid Mononuclear Cell 97 % Fl Polymorphonucl Cell 3 % Fluid Total Protein 2.2 g/dL Fluid LDH 47 IU/L 05/07/17 Range/Units 05:40 WBC (4.5-11.0) K/uL RBC (3.30-5.50) M/uL Hgb (12.0-15.0) g/dL Hct (36.0-48.0) % MCV (80-98) fL MCH (27-31) pg MCHC (32-36) % Plt Count (150-400) K/uL Neut % (Auto) (36-66) % Lymph % (Auto) (24-44) % Bell % (Auto) (2-6) % Eos % (Auto) (2-4) % Baso % (Auto) (0-1) % Sodium 134 L (140-148) mmol/L Potassium 3.6 (3.6-5.2) mmol/L Chloride 97 L (100-108) mmol/L Carbon Dioxide 32 (21-32) mmol/L Anion Gap 8.6 (5.0-14.0) mmol/L BUN 13 (7-18) mg/dL Creatinine 0.8 (0.6-1.0) mg/dL Est Cr Clr Drug Dosing 36.26 mL/min Estimated GFR (MDRD) > 60 (>60) Glucose 107 H (74-106) mg/dL Calcium 8.4 L (8.5-10.1) mg/dL Fluid Type Fluid WBC /ul Fluid RBC /ul Fluid Diff Comment Fluid Mononuclear Cell % Fl Polymorphonucl Cell % Fluid Total Protein g/dL Fluid LDH IU/L Ned Results Last 24 Hours: Microbiology 05/06/17 17:18 Gram Stain - Final Thoracentesis Fluid Med Orders - Current: Current Medications Acetaminophen (Tylenol) 650 mg PO BID@1200,2100 [facility] Last Admin: 05/07/17 12:29 Dose: 650 mg Alprazolam (Xanax) 1 mg PO BEDTIME [facility] Last Admin: 05/06/17 21:09 Dose: 1 mg Divalproex Sodium (Depakote Er) 250 mg PO BEDTIME [facility] Last Admin: 05/06/17 21:06 Dose: 250 mg Docusate Sodium (Colace) 100 mg PO DAILY PRN PRN Reason: Constipation Furosemide (Lasix) 20 mg PO DAILY [facility] Last Admin: 05/07/17 08:15 Dose: 20 mg Guaifenesin/Codeine Phosphate (Robitussin Ac) 5 - 10 ml PO Q4H PRN PRN Reason: Cough Last Admin: 05/07/17 02:54 Dose: 10 ml Levothyroxine Sodium (Synthroid) 88 mcg PO DAILY@0730 [facility] Last Admin: 05/07/17 08:11 Dose: 88 mcg Metoprolol Succinate (Toprol Xl) 100 mg PO DAILY [facility] Last Admin: 05/07/17 08:14 Dose: 100 mg Multivitamins/Minerals (Thera M Plus) 1 tab PO DAILY [facility] Last Admin: 05/07/17 08:15 Dose: 1 tab Pantoprazole Sodium (Protonix) 40 mg PO ACBREAKFAST [facility] Last Admin: 05/07/17 08:09 Dose: 40 mg Potassium Chloride (Klor-Con M20) 20 meq PO DAILY [facility] Last Admin: 05/07/17 09:49 Dose: 20 meq Prazosin HCl (Minpress) 2 mg PO DAILY [facility] Last Admin: 05/07/17 08:12 Dose: 2 mg Sodium Chloride (Saline Flush) 10 ml FLUSH ASDIRECTED PRN PRN Reason: Keep Vein Open Tramadol HCl (Ultram) 50 mg PO BIDMEALS [facility] Last Admin: 05/07/17 17:10 Dose: 50 mg Venlafaxine HCl (Effexor Xr) 75 mg PO BID [facility] Last Admin: 05/07/17 08:16 Dose: 75 mg Discontinued Medications Furosemide (Lasix) 20 mg PO ONETIME ONE Stop: 05/06/17 20:16 Last Admin: 05/06/17 21:05 Dose: 20 mg - Exam General: Alert, Oriented HEENT: Pupils Equal, Pupils Reactive, EOMI, Mucous Membr. Moist/[place] Neck: Supple Lungs: Clear to Auscultation, Normal Respiratory Effort Cardiovascular: Regular Rate, Regular Rhythm GI/Abdominal Exam: Normal Bowel Sounds, Soft, Non-Tender, No Organomegaly, No Distention, No Abnormal Bruit, No Mass, Pelvis Stable Extremities: Normal Inspection, Normal Range of Motion Peripheral Pulses: 1+: Radial (L), Radial (R) Skin: Warm, Dry, Intact Neurological: Other (weakness with ambulation) - Problem List Review Problem List Initiated/Reviewed/Updated: Yes - My Orders Last 24 Hours: My Active Orders 05/06/17 17:18 CULTURE BODY FLUID + SMEAR [RM] Routine SPECIFIC GRAVITY,FLUID [REF] Routine 05/06/17 19:28 Overnight Pulse Oximetry [RC] Click to Edit Pulse Oximetry Continuous Monitoring [OM.PC] Routine 05/06/17 19:31 SCD [Sequential Compression Device] [OM.PC] Routine 05/06/17 19:53 Codeine/guaiFENesin [Robitussin AC] 5 - 10 ml PO Q4H PRN 05/06/17 21:00 ALPRAZolam [Xanax] 1 mg PO BEDTIME Divalproex Sodium [Depakote ER] 250 mg PO BEDTIME Venlafaxine [Effexor XR] 75 mg PO BID 05/06/17 Dinner Cardiac Diet [Heart Healthy Diet] [DIET] 05/07/17 07:30 Levothyroxine [Synthroid] 88 mcg PO DAILY@0730 Pantoprazole [ProTONIX] 40 mg PO ACBREAKFAST 05/07/17 09:00 Furosemide [Lasix] 20 mg PO DAILY Metoprolol Succinate [Toprol XL] 100 mg PO DAILY Multivitamins w-Iron/Ca/FA/Min [Thera M Plus] 1 tab PO DAILY Potassium Chloride [Klor-Con M20] 20 meq PO DAILY Prazosin [Minpress] 2 mg PO DAILY 05/07/17 10:30 traMADol [Ultram] 50 mg PO BIDMEALS 05/07/17 12:00 Acetaminophen [Tylenol] 650 mg PO BID@1200,2100 05/07/17 16:11 Consult to Physical Therapy [PT Evaluation and Treatment] [CONS] Routine 05/08/17 05:11 CXR [Chest 2V] [CR] Routine 05/08/17 07:00 Echo Comp wo Cont [US] Routine - Plan Plan:: Assessment/plan: #1. CHF With bilateral pleural fluid. CXR pending tomorrow. #2. ASHD: Stable presently #3. Hypertension. LOw today as was high yesterday #4. Ca breast: Right side mastectomy #5. History of ME #6. History CVA: #7. History of seizures: continue with medicine.
[2017-05-07] MEDS: ALPRAZolam 0.5 MG Tab PO SCH (20:22)
[2017-05-07] MEDS: Divalproex Sodium 250 MG Tab.ER PO SCH (20:23)
--- NOTE | 2017-05-07 23:05 | PROC ---
DATE OF PROCEDURE: 05/06/2017 PROCEDURE: Thoracentesis. INDICATION: Imani came into the emergency room. She was very short of breath. CT of the abdomen showed a lot of fluid in the chest and the x-ray of the chest showed significant amount of fluids as well but more obvious on the CT of the abdomen as it looked into the chest. There was significant respiratory distress as well. DESCRIPTION OF PROCEDURE: Thoracentesis: The lung was ultrasound and marked with the appropriate spot for the thoracentesis. The standard sterile technique was used. The area was cleaned with ChloraPrep and then injected with 1% lidocaine without adrenaline into the area of the left chest. The skin was with a #11 blade, and the catheter was placed through the skin into the chest and removed 1200 mL of fluid. The fluid was sent for appropriate studies. The catheter was removed. The patient tolerated the procedure well. Preop pleural fluid and postop pleural fluid were removed. X-ray was done post thoracentesis which showed no pneumothorax. Michael Gomez MD /[id number]
[2017-05-08] MEDS: Venlafaxine 75 MG Cap.ER PO SCH ×2 (09:50→21:25)
[2017-05-08] MEDS: Metoprolol Succinate 50 MG Tab.ER PO SCH (09:51)
[2017-05-08] MEDS: Prazosin 1 MG Cap PO SCH (09:51)
[2017-05-08] MEDS: traMADol 50 MG Tab PO SCH ×2 (09:52→17:19)
[2017-05-08] MEDS: Furosemide 20 MG Tab PO SCH (09:52)
[2017-05-08] MEDS: Pantoprazole 40 MG Tab.CR PO SCH (09:52)
[2017-05-08] MEDS: Multivitamins with Iron/Calcium/Folic Acid/Minerals Tab PO SCH (09:52)
[2017-05-08] MEDS: Levothyroxine 88 MCG Tab PO SCH (09:53)
[2017-05-08] MEDS: Potassium Chloride 20 MEQ Tab.ER PO SCH (09:53)
--- NOTE | 2017-05-08 11:26 | CR ---
Chest 2V HISTORY: effusion COMPARISON: 05/06/2017 FINDINGS: Pulmonary congestive changes and near the completely resolved in the interval. Small bilat eral pleural effusions can be seen. Heart size is normal. Old median sternotomy changes are noted. P ulmonary vasculature is not engorged. No new infiltrate is identified. Bony structures are osteopeni c. Remainder of the exam is unchanged. IMPRESSION: Small bilateral pleural effusions are present similar to yesterday's postthoracentesis c hest exam. Cardiomegaly and pulmonary congestive changes have nearly completely resolved.
[2017-05-08] MEDS: Acetaminophen 325 MG Tab PO SCH ×2 (11:43→21:25)
--- NOTE | 2017-05-08 12:30 | US ---
Abdomen Ltd HISTORY: elevation of liver enzymes FINDINGS: The liver appears within normal limits in size and echogenicity with no focal parenchymal abnormalit y identified. Gallbladder is surgically absent. Biliary ducts are not dilated. Common bile duct shantell ures 3 mm in diameter. Head and body of the pancreas appear within normal limits in size and echogenicity with no mass or a bnormal fluid collections. Tail of the pancreas is obscured by bowel gas. Right kidney is within nor mal limits in size and echogenicity with no mass or hydronephrosis. The right kidney is borderline s mall, probably consistent with the patient's age, measuring 8.5 x 4.4 x 3.8 cm. Abdominal aorta and inferior vena cava are unremarkable. Normal hepatopedal flow is seen in the portal vein. No ascites is seen. Small right pleural effusion is noted. IMPRESSION: Status post cholecystectomy. Tail of the pancreas is obscured by bowel gas. Small right pleural effu adina is noted. No other sonographic abnormality of the right upper quadrant is identified.
--- NOTE | 2017-05-08 16:33 | PCM.PN ---
- General Info Date of Service: 05/08/17 Admission Dx/Problem (Free Text): She is complaining of abd pain but not change from before. Pain level is 3-4/ 10 sharp in character. Liver functions elevated. Functional Status: Reports: Pain Controlled - Review of Systems General: Reports: Weakness, Fatigue HEENT: Reports: No Symptoms Pulmonary: Reports: No Symptoms Cardiovascular: Reports: No Symptoms Gastrointestinal: Reports: Abdominal Pain Genitourinary: Reports: No Symptoms Musculoskeletal: Reports: No Symptoms Skin: Reports: No Symptoms Neurological: Reports: No Symptoms Psychiatric: Reports: No Symptoms - Patient Data Vitals - Most Recent: Last Vital Signs Temp 98.8 F 05/08/17 14:48 Pulse 74 05/08/17 14:48 Resp 16 05/08/17 14:48 BP 119/54 L 05/08/17 14:48 Pulse Ox 93 L 05/08/17 14:51 Weight - Most Recent: 149 lb 14.629 oz I&O - Last 24 Hours: Intake & Output 05/08/17 05/08/17 05/08/17 06:59 14:59 22:59 Intake Total 550 Output Total 200 Balance 350 Lab Results Last 24 Hours: Laboratory Results - last 24 hr 05/08/17 05/08/17 05/08/17 Range/Units 04:40 04:40 08:56 WBC 9.0 (4.5-11.0) K/uL RBC 3.68 (3.30-5.50) M/uL Hgb 11.2 L D (12.0-15.0) g/dL Hct 33.7 L (36.0-48.0) % MCV 92 (80-98) fL MCH 30 (27-31) pg MCHC 33 (32-36) % Plt Count 219 (150-400) K/uL Neut % (Auto) 71 H (36-66) % Lymph % (Auto) 17 L (24-44) % [place] % (Auto) 8 H (2-6) % Eos % (Auto) 3 (2-4) % Baso % (Auto) 1 (0-1) % Sodium 140 (140-148) mmol/L Potassium 3.8 (3.6-5.2) mmol/L Chloride 103 (100-108) mmol/L Carbon Dioxide 30 (21-32) mmol/L Anion Gap 7.3 (5.0-14.0) mmol/L BUN 20 H D (7-18) mg/dL Creatinine 0.9 (0.6-1.0) mg/dL Est Cr Clr Drug Dosing 32.23 mL/min Estimated GFR (MDRD) 59 L (>60) Glucose 100 (74-106) mg/dL Calcium 7.9 L (8.5-10.1) mg/dL Total Bilirubin 0.6 (0.2-1.0) mg/dL AST 314 H D (15-37) U/L ALT 434 H (12-78) U/L Alkaline Phosphatase 99 (46-116) U/L Total Protein 6.0 L (6.4-8.2) g/dL Albumin 2.8 L (3.4-5.0) g/dL Globulin 3.2 (2.3-3.5) g/dL Albumin/Globulin Ratio 0.9 L (1.2-2.2) Lipase 128 (73-393) U/L Ned Results Last 24 Hours: Microbiology 05/06/17 17:18 Gram Stain - Final Thoracentesis Fluid Body Fluid Culture - Preliminary NO GROWTH AFTER 1 DAY Med Orders - Current: Current Medications Acetaminophen (Tylenol) 650 mg PO BID@1200,2100 [facility] Last Admin: 05/08/17 11:43 Dose: 650 mg Alprazolam (Xanax) 1 mg PO BEDTIME [facility] Last Admin: 05/07/17 20:22 Dose: 1 mg Divalproex Sodium (Depakote Er) 250 mg PO BEDTIME [facility] Last Admin: 05/07/17 20:23 Dose: 250 mg Docusate Sodium (Colace) 100 mg PO DAILY PRN PRN Reason: Constipation Furosemide (Lasix) 20 mg PO DAILY [facility] Last Admin: 05/08/17 09:52 Dose: 20 mg Guaifenesin/Codeine Phosphate (Robitussin Ac) 5 - 10 ml PO Q4H PRN PRN Reason: Cough Last Admin: 05/07/17 20:38 Dose: 10 ml Levothyroxine Sodium (Synthroid) 88 mcg PO DAILY@0730 [facility] Last Admin: 05/08/17 09:53 Dose: 88 mcg Metoprolol Succinate (Toprol Xl) 100 mg PO DAILY [facility] Last Admin: 08/10/17 09:51 Dose: 100 mg Multivitamins/Minerals (Thera M Plus) 1 tab PO DAILY [facility] Last Admin: 05/08/17 09:52 Dose: 1 tab Pantoprazole Sodium (Protonix) 40 mg PO ACBREAKFAST [facility] Last Admin: 05/08/17 09:52 Dose: 40 mg Potassium Chloride (Klor-Con M20) 20 meq PO DAILY [facility] Last Admin: 05/08/17 09:53 Dose: 20 meq Prazosin HCl (Minpress) 2 mg PO DAILY [facility] Last Admin: 05/08/17 09:51 Dose: 2 mg Sodium Chloride (Saline Flush) 10 ml FLUSH ASDIRECTED PRN PRN Reason: Keep Vein Open Tramadol HCl (Ultram) 50 mg PO BIDMEALS [facility] Last Admin: 05/08/17 09:52 Dose: 50 mg Venlafaxine HCl (Effexor Xr) 75 mg PO BID [facility] Last Admin: 05/08/17 09:50 Dose: 75 mg Discontinued Medications Furosemide (Lasix) 20 mg PO ONETIME ONE Stop: 05/06/17 20:16 Last Admin: 05/06/17 21:05 Dose: 20 mg Warfarin Sodium (Coumadin) 1 mg PO ONETIME ONE Stop: 05/08/17 12:46 Last Admin: 05/08/17 13:48 Dose: 1 mg - Exam General: Alert, Oriented HEENT: Pupils Equal, Pupils Reactive, EOMI, Mucous Membr. Moist/[place]: Supple Lungs: Clear to Auscultation, Normal Respiratory Effort Cardiovascular: Regular Rate, Regular Rhythm GI/Abdominal Exam: Normal Bowel Sounds, Soft, Other (Mild pain to palpation upper right quad.) Back Exam: Normal Inspection, Full Range of Motion Extremities: Normal Inspection, Normal Range of Motion, Non-Tender, No Pedal Edema, Normal Capillary Refill Peripheral Pulses: 1+: Radial (L), Radial (R) Skin: Warm, Dry, Intact - Problem List Review Problem List Initiated/Reviewed/Updated: Yes - My Orders Last 24 Hours: My Active Orders 05/07/17 16:11 Consult to Physical Therapy [PT Evaluation and Treatment] [CONS] Routine 05/08/17 07:00 Echo Comp wo Cont [US] Routine 05/08/17 09:04 Consult to Case Management [CONS] Routine 05/09/17 05:11 ALANINE AMINOTRANSFERASE,ALT [CHEM] Routine ASPARTATE AMNIOTRANSFERASE,AST [CHEM] Routine - Plan Plan:: Assessment/plan: #1. CHF With bilateral pleural fluid. CXR stable #2. ASHD: Stable presently #3. Hypertension. Stable #4. Ca breast: Right side mastectomy #5. History of [place] #6. History CVA: #7. History of seizures: continue with medicine. #8. Liver dysfunction. Etiology unknown will repeat in the morning. Ultrasound was neg. Will repeat the liver functions in the morning.
[2017-05-08] MEDS: Codeine/guaiFENesin 100mg-10 MG/5 ML Syrup 10 ML Cup PO PRN (21:24)
[2017-05-08] MEDS: Divalproex Sodium 250 MG Tab.ER PO SCH (21:27)
[2017-05-08] MEDS: ALPRAZolam 0.5 MG Tab PO SCH (21:32)
[2017-05-09] MEDS: Pantoprazole 40 MG Tab.CR PO SCH (07:22)
[2017-05-09] MEDS: Levothyroxine 88 MCG Tab PO SCH (07:22)
--- NOTE | 2017-05-09 07:39 | ECHO ---
REFERRING PRACTITIONER: Michael Gomez MD 1. AO ROOT: (NL = 2.0-3.7) 2. AORTIC VALVE EXCURSION: 3. LA: CM (NL = 1.9-4.0) 4. RV: (NL = .09-2.6) 5. LV MULTANI: (NL = 3.5-5.7) 6. LV SYST: (NL = 2.2-4.3) 7. FRACTIONAL SHORTENING: (2542) 8. EJECTION FRACTION: (5075) 9. IVS: (NL = 0.6-1.1) 10. LVPW: (NL = 0.6 1.1) INDICATION: Pleural effusion. Evaluate left ventricular function. Aortic root is 3.33. Left atrium is 5.14. Right ventricle is 3.71. Left ventricle diastolic 5.18, systolic 4.51. Estimated ejection fraction is 40% to 45%. Interventricular septal wall thickness 1.07. Left ventricular posterior wall thickness 1.08. By 2D echo, left ventricular function appears to be mildly decreased consistent with estimated ejection fraction of 40% to 45%. There are no specific wall motion abnormalities, but there is global left ventricular hypokinesis. There is no pericardial effusion seen on this study. There is severe left atrial enlargement. There is also right atrial enlargement. Enlargement of the right ventricle with preserved right ventricular function. Left ventricle and aortic root appear to be within normal range for size. There is calcification of aortic valve anulus and leaflets without impairment of leaflet motion. There is calcification of the mitral valve anulus. The tricuspid and pulmonic valves appear to be structurally normal. By Doppler and color Doppler, there is elevation in estimated right ventricular pressure at 45 mmHg. There is no evidence of aortic stenosis. There is moderate to severe mitral regurgitation and moderate tricuspid regurgitation. There is also evidence of patent foramen ovale. IMPRESSION: 1. Mildly decreased left ventricular function consistent with estimated ejection fraction of 40% to 45%. 2. Global left ventricular hypokinesis. 3. Severe left atrial enlargement. 4. Right atrial enlargement. 5. Right ventricular enlargement with preserved right ventricular function. 6. Aortic sclerosis without stenosis. 7. Patent foramina ovale. 8. Elevation in estimated right ventricular pressure at 45 mmHg. 9. Moderate to severe mitral regurgitation. 10. Moderate tricuspid regurgitation. /[id number] CC: Michael Gomez MD MTDD
[2017-05-09] MEDS: Venlafaxine 75 MG Cap.ER PO SCH ×2 (08:07→21:44)
[2017-05-09] MEDS: Metoprolol Succinate 50 MG Tab.ER PO SCH (08:07)
[2017-05-09] MEDS: Prazosin 1 MG Cap PO SCH (08:08)
[2017-05-09] MEDS: Potassium Chloride 20 MEQ Tab.ER PO SCH (08:08)
[2017-05-09] MEDS: Multivitamins with Iron/Calcium/Folic Acid/Minerals Tab PO SCH (08:09)
[2017-05-09] MEDS: Furosemide 20 MG Tab PO SCH (08:09)
[2017-05-09] MEDS: traMADol 50 MG Tab PO SCH ×2 (08:13→17:19)
[2017-05-09] MEDS: Acetaminophen 325 MG Tab PO SCH ×2 (12:13→21:50)
--- NOTE | 2017-05-09 16:15 | PCM.PN ---
- General Info Date of Service: 05/09/17 Functional Status: Reports: Pain Controlled - Review of Systems General: Reports: Weakness, Fatigue HEENT: Reports: No Symptoms Pulmonary: Reports: No Symptoms Cardiovascular: Reports: No Symptoms Gastrointestinal: Reports: Abdominal Pain, Other Genitourinary: Reports: No Symptoms Musculoskeletal: Reports: No Symptoms Skin: Reports: No Symptoms Neurological: Reports: No Symptoms Psychiatric: Reports: No Symptoms - Patient Data Vitals - Most Recent: Last Vital Signs Temp 98.6 F 05/09/17 15:10 Pulse 72 05/09/17 15:10 Resp 18 05/09/17 15:10 BP 125/72 05/09/17 15:10 Pulse Ox 93 L 05/09/17 15:10 Weight - Most Recent: 149 lb 14.629 oz I&O - Last 24 Hours: Intake & Output 05/09/17 05/09/17 05/09/17 06:59 14:59 22:59 Intake Total 580 Balance 580 Lab Results Last 24 Hours: Laboratory Results - last 24 hr 05/06/17 05/09/17 05/09/17 Range/Units 17:18 04:40 09:11 AST 1156 H (15-37) U/L ALT 1621 H (12-78) U/L Alkaline Phosphatase 92 (46-116) U/L Lipase 137 (73-393) U/L Fluid Specific Grav 1.016 Ned Results Last 24 Hours: Microbiology 05/06/17 17:18 Gram Stain - Final Thoracentesis Fluid Body Fluid Culture - Preliminary NO GROWTH AFTER 2 DAYS Med Orders - Current: Current Medications Acetaminophen (Tylenol) 650 mg PO BID@1200,2100 [facility] Last Admin: 05/09/17 12:13 Dose: 650 mg Alprazolam (Xanax) 1 mg PO BEDTIME [facility] Last Admin: 05/08/17 21:32 Dose: 1 mg Divalproex Sodium (Depakote Er) 250 mg PO BEDTIME [facility] Last Admin: 05/08/17 21:27 Dose: 250 mg Docusate Sodium (Colace) 100 mg PO DAILY PRN PRN Reason: Constipation Furosemide (Lasix) 20 mg PO DAILY [facility] Last Admin: 05/09/17 08:09 Dose: 20 mg Guaifenesin/Codeine Phosphate (Robitussin Ac) 5 - 10 ml PO Q4H PRN PRN Reason: Cough Last Admin: 05/08/17 21:24 Dose: 10 ml Levothyroxine Sodium (Synthroid) 88 mcg PO DAILY@0730 [facility] Last Admin: 05/09/17 07:22 Dose: 88 mcg Metoprolol Succinate (Toprol Xl) 100 mg PO DAILY [facility] Last Admin: 05/09/17 08:07 Dose: 100 mg Multivitamins/Minerals (Thera M Plus) 1 tab PO DAILY [facility] Last Admin: 05/09/17 08:09 Dose: 1 tab Pantoprazole Sodium (Protonix) 40 mg PO ACBREAKFAST [facility] Last Admin: 05/09/17 07:22 Dose: 40 mg Potassium Chloride (Klor-Con M20) 20 meq PO DAILY [facility] Last Admin: 05/09/17 08:08 Dose: 20 meq Prazosin HCl (Minpress) 2 mg PO DAILY [facility] Last Admin: 05/09/17 08:08 Dose: 2 mg Sodium Chloride (Saline Flush) 10 ml FLUSH ASDIRECTED PRN PRN Reason: Keep Vein Open Tramadol HCl (Ultram) 50 mg PO BIDMEALS [facility] Last Admin: 05/09/17 08:13 Dose: 50 mg Venlafaxine HCl (Effexor Xr) 75 mg PO BID [facility] Last Admin: 05/09/17 08:07 Dose: 75 mg Discontinued Medications Furosemide (Lasix) 20 mg PO ONETIME ONE Stop: 05/06/17 20:16 Last Admin: 05/06/17 21:05 Dose: 20 mg Warfarin Sodium (Coumadin) 1 mg PO ONETIME ONE Stop: 05/08/17 12:46 Last Admin: 05/08/17 13:48 Dose: 1 mg - Exam General: Alert, Oriented HEENT: Pupils Equal, Pupils Reactive, EOMI, Mucous Membr. Moist/[place] Neck: Supple Lungs: Clear to Auscultation, Normal Respiratory Effort Cardiovascular: Regular Rate, Regular Rhythm GI/Abdominal Exam: Normal Bowel Sounds, Soft, Non-Tender, No Organomegaly, No Distention, No Abnormal Bruit, No Mass, Pelvis Stable, Other (Still mild pain throuhout the abd. also pain in the upper right quad.) - Problem List Review Problem List Initiated/Reviewed/Updated: Yes - My Orders Last 24 Hours: My Active Orders 05/09/17 08:44 HEPATITIS PANEL,ACUTE [REF] Routine 05/10/17 05:11 CBC WITH AUTO DIFF [HEME] Routine COMPREHENSIVE METABOLIC PN,CMP [CHEM] Routine - Plan Plan:: Assessment/plan: #1. CHF With bilateral pleural fluid. CXR stable. Echocardiogram shows low EF at 40-50%. CT abd Neg. #2. ASHD: Stable presently #3. Hypertension. Stable #4. Ca breast: Right side mastectomy #5. History of [place] #6. History CVA: #7. History of seizures: continue with medicine. #8. Liver dysfunction. Etiology unknown will repeat in the morning. Ultrasound was neg. Enzymes today improving. I have reviewed all meds. None cause liver failure. Will repeat blood in the morning Hepatitis tests are pending..
[2017-05-09] MEDS: Divalproex Sodium 250 MG Tab.ER PO SCH (21:43)
[2017-05-09] MEDS: ALPRAZolam 0.5 MG Tab PO SCH (21:44)
[2017-05-10] MEDS: Pantoprazole 40 MG Tab.CR PO SCH (07:51)
[2017-05-10] MEDS: Levothyroxine 88 MCG Tab PO SCH (07:51)
[2017-05-10] MEDS: traMADol 50 MG Tab PO SCH ×2 (07:51→16:58)
[2017-05-10] MEDS: Prazosin 1 MG Cap PO SCH (08:00)
[2017-05-10] MEDS: Potassium Chloride 20 MEQ Tab.ER PO SCH (08:00)
[2017-05-10] MEDS: Furosemide 20 MG Tab PO SCH (08:00)
[2017-05-10] MEDS: Venlafaxine 75 MG Cap.ER PO SCH ×2 (08:00→21:17)
[2017-05-10] MEDS: Metoprolol Succinate 50 MG Tab.ER PO SCH (08:01)
[2017-05-10] MEDS: Multivitamins with Iron/Calcium/Folic Acid/Minerals Tab PO SCH (08:01)
[2017-05-10] MEDS: Acetaminophen 325 MG Tab PO SCH ×2 (12:24→21:16)
[2017-05-10] MEDS: ALPRAZolam 0.5 MG Tab PO SCH (21:16)
[2017-05-10] MEDS: Divalproex Sodium 250 MG Tab.ER PO SCH (21:17)
[2017-05-11] MEDS: Levothyroxine 88 MCG Tab PO SCH (07:25)
[2017-05-11] MEDS: traMADol 50 MG Tab PO SCH ×2 (07:25→17:38)
[2017-05-11] MEDS: Pantoprazole 40 MG Tab.CR PO SCH (07:25)
[2017-05-11] MEDS: Venlafaxine 75 MG Cap.ER PO SCH ×2 (08:00→20:15)
[2017-05-11] MEDS: Potassium Chloride 20 MEQ Tab.ER PO SCH (08:00)
[2017-05-11] MEDS: Prazosin 1 MG Cap PO SCH (08:01)
[2017-05-11] MEDS: Furosemide 20 MG Tab PO SCH (08:01)
[2017-05-11] MEDS: Multivitamins with Iron/Calcium/Folic Acid/Minerals Tab PO SCH (08:02)
[2017-05-11] MEDS: Metoprolol Succinate 50 MG Tab.ER PO SCH (08:02)
--- NOTE | 2017-05-11 11:32 | PCM.PN ---
- General Info Date of Service: 05/11/17 - Review of Systems General: Reports: Weakness HEENT: Reports: No Symptoms Pulmonary: Reports: No Symptoms Cardiovascular: Reports: No Symptoms Gastrointestinal: Reports: Abdominal Pain Genitourinary: Reports: No Symptoms Musculoskeletal: Reports: No Symptoms Skin: Reports: No Symptoms Neurological: Reports: No Symptoms Psychiatric: Reports: No Symptoms - Patient Data Vitals - Most Recent: Last Vital Signs Temp 97.2 F 05/11/17 07:06 Pulse 75 05/11/17 08:02 Resp 16 05/11/17 07:06 BP 177/59 H 05/11/17 08:02 Pulse Ox 98 05/11/17 07:20 Weight - Most Recent: 149 lb 14.629 oz I&O - Last 24 Hours: Intake & Output 05/10/17 05/11/17 05/11/17 22:59 06:59 14:59 Intake Total 1200 60 Balance 1200 60 Lab Results Last 24 Hours: Laboratory Results - last 24 hr 05/11/17 05/11/17 Range/Units 05:58 05:58 AST 310 H (15-37) U/L ALT 1059 H (12-78) U/L Ammon[place] 11 (11-32) mmol/L Med Orders - Current: Current Medications Acetaminophen (Tylenol) 650 mg PO BID@1200,2100 [facility] Last Admin: 05/10/17 21:16 Dose: 650 mg Alprazolam (Xanax) 1 mg PO BEDTIME [facility] Last Admin: 05/10/17 21:16 Dose: 1 mg Divalproex Sodium (Depakote Er) 250 mg PO BEDTIME [facility] Last Admin: 05/10/17 21:17 Dose: 250 mg Docusate Sodium (Colace) 100 mg PO DAILY PRN PRN Reason: Constipation Furosemide (Lasix) 20 mg PO DAILY [facility] Last Admin: 05/11/17 08:01 Dose: 20 mg Guaifenesin/Codeine Phosphate (Robitussin Ac) 5 - 10 ml PO Q4H PRN PRN Reason: Cough Last Admin: 05/08/17 21:24 Dose: 10 ml Levothyroxine Sodium (Synthroid) 88 mcg PO DAILY@0730 [facility] Last Admin: 05/11/17 07:25 Dose: 88 mcg Metoprolol Succinate (Toprol Xl) 100 mg PO DAILY [facility] Last Admin: 05/11/17 08:02 Dose: 100 mg Multivitamins/Minerals (Thera M Plus) 1 tab PO DAILY [facility] Last Admin: 05/11/17 08:02 Dose: 1 tab Pantoprazole Sodium (Protonix) 40 mg PO ACBREAKFAST [facility] Last Admin: 05/11/17 07:25 Dose: 40 mg Potassium Chloride (Klor-Con M20) 20 meq PO DAILY [facility] Last Admin: 05/11/17 08:00 Dose: 20 meq Prazosin HCl (Minpress) 2 mg PO DAILY [facility] Last Admin: 05/11/17 08:01 Dose: 2 mg Sodium Chloride (Saline Flush) 10 ml FLUSH ASDIRECTED PRN PRN Reason: Keep Vein Open Tramadol HCl (Ultram) 50 mg PO BIDMEALS [facility] Last Admin: 05/11/17 07:25 Dose: 50 mg Venlafaxine HCl (Effexor Xr) 75 mg PO BID [facility] Last Admin: 05/11/17 08:00 Dose: 75 mg Discontinued Medications Furosemide (Lasix) 20 mg PO ONETIME ONE Stop: 05/06/17 20:16 Last Admin: 05/06/17 21:05 Dose: 20 mg Warfarin Sodium (Coumadin) 1 mg PO ONETIME ONE Stop: 05/08/17 12:46 Last Admin: 05/08/17 13:48 Dose: 1 mg - Exam General: Alert, Oriented Lungs: Clear to Auscultation, Normal Respiratory Effort Cardiovascular: Regular Rate, Regular Rhythm GI/Abdominal Exam: Soft, Tender Back Exam: Normal Inspection, Full Range of Motion Extremities: Normal Inspection, Normal Range of Motion, Non-Tender, No Pedal Edema, Normal Capillary Refill Peripheral Pulses: 1+: Radial (L), Radial (R) Skin: Warm, Dry, Intact Psy/Mental Status: Alert, Normal Affect, Normal Mood - Problem List Review Problem List Initiated/Reviewed/Updated: Yes - Plan Plan:: Assessment/plan: #1. CHF With bilateral pleural fluid. CXR stable. Echocardiogram shows low EF at 40-50%. CT abd Neg. #2. ASHD: Stable presently #3. Hypertension. Stable #4. Ca breast: Right side mastectomy #5. History of [place] #6. History CVA: #7. History of seizures: continue with medicine. #8. Liver dysfunction. Etiology unknown will repeat in the morning. Ultrasound was neg. Enzymes today improving. AST 310 and ALT 1059. I have reviewed all meds. Will repeat blood in the morning. Hepatitis tests are pending..
[2017-05-11] MEDS: Acetaminophen 325 MG Tab PO SCH ×2 (12:37→20:14)
[2017-05-11] MEDS: Divalproex Sodium 250 MG Tab.ER PO SCH (20:14)
[2017-05-11] MEDS: ALPRAZolam 0.5 MG Tab PO SCH (20:18)
[2017-05-12] MEDS: Pantoprazole 40 MG Tab.CR PO SCH (07:11)
[2017-05-12] MEDS: Levothyroxine 88 MCG Tab PO SCH (07:11)
--- NOTE | 2017-05-12 08:29 | CR ---
Chest 2V INDICATION: pneumonia COMPARISON: 05/24/2013 FINDINGS: Two views. Heart size remains normal. Sternotomy wires. New left pleural effusion. Ther e may be a small right pleural effusion. No focal consolidation. No overt signs of pulmonary edema. IMPRESSION: Pleural effusions new since the prior study.
--- NOTE | 2017-05-12 08:59 | PCM.PN ---
- General Info Date of Service: 05/12/17 Subjective Update: Still has abd. pain now in the right lower quad. She is walking better still limited. Functional Status: Reports: Pain Controlled - Review of Systems General: Reports: Weakness, Fatigue HEENT: Reports: No Symptoms Pulmonary: Reports: No Symptoms Cardiovascular: Reports: No Symptoms Gastrointestinal: Reports: No Symptoms Genitourinary: Reports: No Symptoms Musculoskeletal: Reports: No Symptoms Skin: Reports: No Symptoms Neurological: Reports: No Symptoms Psychiatric: Reports: No Symptoms - Patient Data Vitals - Most Recent: Last Vital Signs Temp 97.8 F 05/12/17 08:02 Pulse 67 05/12/17 08:02 Resp 16 05/12/17 08:02 BP 117/71 05/12/17 08:02 Pulse Ox 95 05/12/17 08:02 Weight - Most Recent: 149 lb 14.629 oz I&O - Last 24 Hours: Intake & Output 05/11/17 05/12/17 05/12/17 22:59 06:59 14:59 Intake Total 450 90 150 Balance 450 90 150 Lab Results Last 24 Hours: Laboratory Results - last 24 hr 05/09/17 05/12/17 05/12/17 Range/Units 08:44 05:56 05:56 WBC 5.5 (4.5-11.0) K/uL RBC 3.68 (3.30-5.50) M/uL Hgb 11.2 L (12.0-15.0) g/dL Hct 34.1 L (36.0-48.0) % MCV 93 (80-98) fL MCH 30 (27-31) pg MCHC 33 (32-36) % Plt Count 234 (150-400) K/uL Neut % (Auto) 48 (36-66) % Lymph % (Auto) 30 (24-44) % [place] % (Auto) 14 H (2-6) % Eos % (Auto) 5 H (2-4) % Baso % (Auto) 3 H (0-1) % Sodium 137 L (140-148) mmol/L Potassium 4.3 (3.6-5.2) mmol/L Chloride 100 (100-108) mmol/L Carbon Dioxide 32 (21-32) mmol/L Anion Gap 9.3 (5.0-14.0) mmol/L BUN 14 (7-18) mg/dL Creatinine 0.8 (0.6-1.0) mg/dL Est Cr Clr Drug Dosing 36.26 mL/min Estimated GFR (MDRD) > 60 (>60) Glucose 93 (74-106) mg/dL Calcium 8.4 L (8.5-10.1) mg/dL Total Bilirubin 0.4 (0.2-1.0) mg/dL AST 153 H (15-37) U/L ALT 740 H (12-78) U/L Alkaline Phosphatase 115 (46-116) U/L Total Protein 6.5 (6.4-8.2) g/dL Albumin 3.1 L (3.4-5.0) g/dL Globulin 3.4 (2.3-3.5) g/dL Albumin/Globulin Ratio 0.9 L (1.2-2.2) Hepatitis A IgM Ab Non reactive (NR) Hep Bs Antigen Non reactive (NR) Hep B Core IgM Ab Non reactive (NR) Hepatitis C Antibody Non reactive (NR) Hepatitis Interpret See below Med Orders - Current: Current Medications Acetaminophen (Tylenol) 650 mg PO BID@1200,2100 [facility] Last Admin: 05/11/17 20:14 Dose: 650 mg Alprazolam (Xanax) 1 mg PO BEDTIME [facility] Last Admin: 05/11/17 20:18 Dose: 1 mg Divalproex Sodium (Depakote Er) 250 mg PO BEDTIME [facility] Last Admin: 05/11/17 20:14 Dose: 250 mg Docusate Sodium (Colace) 100 mg PO DAILY PRN PRN Reason: Constipation Furosemide (Lasix) 20 mg PO DAILY [facility] Last Admin: 05/11/17 08:01 Dose: 20 mg Guaifenesin/Codeine Phosphate (Robitussin Ac) 5 - 10 ml PO Q4H PRN PRN Reason: Cough Last Admin: 05/08/17 21:24 Dose: 10 ml Levothyroxine Sodium (Synthroid) 88 mcg PO DAILY@0730 [facility] Last Admin: 05/12/17 07:11 Dose: 88 mcg Metoprolol Succinate (Toprol Xl) 100 mg PO DAILY [facility] Last Admin: 05/11/17 08:02 Dose: 100 mg Multivitamins/Minerals (Thera M Plus) 1 tab PO DAILY [facility] Last Admin: 05/11/17 08:02 Dose: 1 tab Pantoprazole Sodium (Protonix) 40 mg PO ACBREAKFAST [facility] Last Admin: 05/12/17 07:11 Dose: 40 mg Potassium Chloride (Klor-Con M20) 20 meq PO DAILY [facility] Last Admin: 05/11/17 08:00 Dose: 20 meq Prazosin HCl (Minpress) 2 mg PO DAILY [facility] Last Admin: 05/11/17 08:01 Dose: 2 mg Sodium Chloride (Saline Flush) 10 ml FLUSH ASDIRECTED PRN PRN Reason: Keep Vein Open Tramadol HCl (Ultram) 50 mg PO BIDMEALS [facility] Last Admin: 05/11/17 17:38 Dose: 50 mg Venlafaxine HCl (Effexor Xr) 75 mg PO BID [facility] Last Admin: 05/11/17 20:15 Dose: 75 mg Discontinued Medications Furosemide (Lasix) 20 mg PO ONETIME ONE Stop: 05/06/17 20:16 Last Admin: 05/06/17 21:05 Dose: 20 mg Warfarin Sodium (Coumadin) 1 mg PO ONETIME ONE Stop: 05/08/17 12:46 Last Admin: 05/08/17 13:48 Dose: 1 mg - Exam General: Alert, Oriented HEENT: Pupils Equal, Pupils Reactive, EOMI, Mucous Membr. Moist/[place] Neck: Supple Lungs: Clear to Auscultation, Normal Respiratory Effort Cardiovascular: Regular Rate, Regular Rhythm GI/Abdominal Exam: Tender Extremities: Normal Inspection, Normal Range of Motion, Non-Tender, No Pedal Edema, Normal Capillary Refill Peripheral Pulses: 1+: Radial (L), Radial (R) Skin: Warm, Dry, Intact Psy/Mental Status: Alert, Normal Affect, Normal Mood - Problem List Review Problem List Initiated/Reviewed/Updated: Yes - Plan Plan:: Assessment/plan: #1. CHF With bilateral pleural fluid. CXR stable. Echocardiogram shows low EF at 40-50%. CT abd Neg. #2. ASHD: Stable presently #3. Hypertension. Stable #4. Ca breast: Right side mastectomy #5. History of [place] #6. History CVA: #7. History of seizures: continue with medicine. #8. Liver dysfunction. Etiology unknown will repeat in the morning. Ultrasound was neg. Enzymes today improving. AST 153 and ALT 740. I have reviewed all meds. Plan discharge to [place] when a bed is available. Hepatitis tests are pending..
--- NOTE | 2017-05-12 09:07 | PCM.DCSUM1 ---
Discharge Summary - Discharge Data Discharge Date: 05/13/17 Discharge Disposition: [facility] Condition: Good - Patient Summary/Data Consults: Consultations 05/07/17 16:11 Consult to Physical Therapy [PT Evaluation and Treatment] [CONS] Routine Please Evaluate and Treat. PT Reason for Consult: Strengthening This query below is only for informational purposes and is not editable. Admission Diagnosis/Problem: Congestive heart failure 05/08/17 09:04 Consult to Case Management [CONS] Routine Comment: Physician Instructions: Quantity: 1 Reason for Consult: long-term versus home health Case Management Specialty: [employer] Hospital Course: Upon admission I tapped her left lung and removed 1400cc of fluid the next 2 days her liver functions elevated and stayed up for 3 more days and then begin to decrease. Hepatitis tests were neg. CT and Ultrasound of the liver were neg. for a etiology of the liver dysfunction. The Echocardiography exam showed EF of 40-45%. I feel the Pleural fluid was from the CHF. - Patient Instructions Diet: Heart Healthy Diet Activity: As Tolerated - Discharge Plan Home Medications: Home Meds Levothyroxine [Synthroid] 88 mcg PO DAILY 05/28/13 [History] Multivitamin with Minerals [Multiple Vitamin] 1 tab PO DAILY 05/28/13 [History] ALPRAZolam [Xanax] 1 mg PO BEDTIME 05/29/13 [History] atorvaSTATin [Lipitor] 40 mg PO DAILY 11/30/14 [History] Pantoprazole Sodium [Protonix] 40 mg PO DAILY 02/28/15 [History] Divalproex Sodium [Depakote ER] 250 mg PO DAILY #60 tab.sr.24h 03/02/15 [Rx] Docusate Sodium [Colace] 100 mg PO DAILY PRN 11/15/15 [History] Calcium Carbonate/Vitamin D3 [Calcium 500 + Vit D 400] 1 tab PO DAILY 03/03/16 [ History] Prazosin [Minpress] 2 mg PO DAILY 03/03/16 [History] Venlafaxine HCl [Venlafaxine ER] 75 mg PO BID 03/03/16 [History] Acetaminophen 650 mg PO BID PRN 12/30/16 [History] Ibuprofen [Advil] 400 mg PO BIDMEALS PRN 12/30/16 [History] Codeine/guaiFENesin [Robitussin AC] 5 - 10 ml PO Q4H PRN #0 cup 01/01/17 [Rx] Metoprolol Succinate [Toprol XL] 100 mg PO DAILY 05/06/17 [History] Acetaminophen [Tylenol] 650 mg PO BID 05/07/17 [History] traMADol HCl [Ultram] 50 mg PO BID 05/07/17 [History] Furosemide [Lasix] 20 mg PO DAILY tablet 05/12/17 [Rx] Potassium Chloride [Klor-Con M20] 20 meq PO DAILY tab.er 05/12/17 [Rx] traMADol [Ultram] 50 mg PO BIDMEALS tablet 05/12/17 [Rx] Hydrochlorothiazide 25 mg PO DAILY tablet 05/13/17 [Rx] Spironolactone [Aldactone] 25 mg PO DAILY tablet 05/13/17 [Rx] Patient Handouts: Heart-Healthy Eating Plan, [id number], Heart Failure, Easy- to-Read Forms: ED Department Discharge Referrals: Michael Gomez Sr, [Primary Care Provider] - - Discharge Summary/Plan Comment DC Time >30 min.: Yes - Review of Systems General: Reports: Weakness HEENT: Reports: No Symptoms Pulmonary: Reports: No Symptoms Cardiovascular: Reports: No Symptoms Gastrointestinal: Reports: No Symptoms Genitourinary: Reports: No Symptoms Musculoskeletal: Reports: No Symptoms Skin: Reports: No Symptoms Neurological: Reports: No Symptoms Psychiatric: Reports: No Symptoms - Patient Data Vitals - Most Recent: Last Vital Signs Temp 97.8 F 05/12/17 08:02 Pulse 67 05/12/17 08:02 Resp 16 05/12/17 08:02 BP 117/71 05/12/17 08:02 Pulse Ox 95 05/12/17 08:02 Weight - Most Recent: 149 lb 14.629 oz I&O - Last 24 hours: Intake & Output 05/11/17 05/12/17 05/12/17 22:59 06:59 14:59 Intake Total 450 90 150 Balance 450 90 150 Lab Results - Last 24 hrs: Laboratory Results - last 24 hr 05/09/17 05/12/17 05/12/17 Range/Units 08:44 05:56 05:56 WBC 5.5 (4.5-11.0) K/uL RBC 3.68 (3.30-5.50) M/uL Hgb 11.2 L (12.0-15.0) g/dL Hct 34.1 L (36.0-48.0) % MCV 93 (80-98) fL MCH 30 (27-31) pg MCHC 33 (32-36) % Plt Count 234 (150-400) K/uL Neut % (Auto) 48 (36-66) % Lymph % (Auto) 30 (24-44) % Hendricks % (Auto) 14 H (2-6) % Eos % (Auto) 5 H (2-4) % Baso % (Auto) 3 H (0-1) % Sodium 137 L (140-148) mmol/L Potassium 4.3 (3.6-5.2) mmol/L Chloride 100 (100-108) mmol/L Carbon Dioxide 32 (21-32) mmol/L Anion Gap 9.3 (5.0-14.0) mmol/L BUN 14 (7-18) mg/dL Creatinine 0.8 (0.6-1.0) mg/dL Est Cr Clr Drug Dosing 36.26 mL/min Estimated GFR (MDRD) > 60 (>60) Glucose 93 (74-106) mg/dL Calcium 8.4 L (8.5-10.1) mg/dL Total Bilirubin 0.4 (0.2-1.0) mg/dL AST 153 H (15-37) U/L ALT 740 H (12-78) U/L Alkaline Phosphatase 115 (46-116) U/L Total Protein 6.5 (6.4-8.2) g/dL Albumin 3.1 L (3.4-5.0) g/dL Globulin 3.4 (2.3-3.5) g/dL Albumin/Globulin Ratio 0.9 L (1.2-2.2) Hepatitis A IgM Ab Non reactive (NR) Hep Bs Antigen Non reactive (NR) Hep B Core IgM Ab Non reactive (NR) Hepatitis C Antibody Non reactive (NR) Hepatitis Interpret See below Med Orders - Current: Current Medications Acetaminophen (Tylenol) 650 mg PO BID@1200,2100 [facility] Last Admin: 05/11/17 20:14 Dose: 650 mg Alprazolam (Xanax) 1 mg PO BEDTIME [facility] Last Admin: 05/11/17 20:18 Dose: 1 mg Divalproex Sodium (Depakote Er) 250 mg PO BEDTIME [facility] Last Admin: 05/11/17 20:14 Dose: 250 mg Docusate Sodium (Colace) 100 mg PO DAILY PRN PRN Reason: Constipation Furosemide (Lasix) 20 mg PO DAILY [facility] Last Admin: 05/11/17 08:01 Dose: 20 mg Guaifenesin/Codeine Phosphate (Robitussin Ac) 5 - 10 ml PO Q4H PRN PRN Reason: Cough Last Admin: 05/08/17 21:24 Dose: 10 ml Levothyroxine Sodium (Synthroid) 88 mcg PO DAILY@0730 [facility] Last Admin: 05/12/17 07:11 Dose: 88 mcg Metoprolol Succinate (Toprol Xl) 100 mg PO DAILY [facility] Last Admin: 05/11/17 08:02 Dose: 100 mg Multivitamins/Minerals (Thera M Plus) 1 tab PO DAILY [facility] Last Admin: 05/11/17 08:02 Dose: 1 tab Pantoprazole Sodium (Protonix) 40 mg PO ACBREAKFAST [facility] Last Admin: 05/12/17 07:11 Dose: 40 mg Potassium Chloride (Klor-Con M20) 20 meq PO DAILY [facility] Last Admin: 05/11/17 08:00 Dose: 20 meq Prazosin HCl (Minpress) 2 mg PO DAILY [facility] Last Admin: 05/11/17 08:01 Dose: 2 mg Sodium Chloride (Saline Flush) 10 ml FLUSH ASDIRECTED PRN PRN Reason: Keep Vein Open Tramadol HCl (Ultram) 50 mg PO BIDMEALS [facility] Last Admin: 05/11/17 17:38 Dose: 50 mg Venlafaxine HCl (Effexor Xr) 75 mg PO BID [facility] Last Admin: 05/11/17 20:15 Dose: 75 mg Discontinued Medications Furosemide (Lasix) 20 mg PO ONETIME ONE Stop: 05/06/17 20:16 Last Admin: 05/06/17 21:05 Dose: 20 mg Warfarin Sodium (Coumadin) 1 mg PO ONETIME ONE Stop: 05/08/17 12:46 Last Admin: 05/08/17 13:48 Dose: 1 mg - Exam General: Reports: Alert, Oriented HEENT: Reports: Pupils Equal, Pupils Reactive, EOMI, Mucous Membr. Moist/[place] Neck: Reports: Supple Lungs: Reports: Clear to Auscultation, Normal Respiratory Effort Cardiovascular: Reports: Regular Rate, Regular Rhythm GI/Abdominal Exam: Soft, Tender Extremities: Normal Inspection, Normal Range of Motion, Non-Tender, No Pedal Edema, Normal Capillary Refill Skin: Reports: Warm, Dry, Intact Psy/Mental Status: Reports: Alert, Normal Affect, Normal Mood *Q Meaningful Use (DIS) - VTE *Q VTE Criteria *Q: - Stroke *Q Stroke Criteria *Q: - AMI *Q AMI Criteria *Q:
[2017-05-12] MEDS: Venlafaxine 75 MG Cap.ER PO SCH ×2 (09:13→21:12)
[2017-05-12] MEDS: Furosemide 20 MG Tab PO SCH (09:13)
[2017-05-12] MEDS: Potassium Chloride 20 MEQ Tab.ER PO SCH (09:13)
[2017-05-12] MEDS: Multivitamins with Iron/Calcium/Folic Acid/Minerals Tab PO SCH (09:14)
[2017-05-12] MEDS: Prazosin 1 MG Cap PO SCH (09:14)
[2017-05-12] MEDS: Metoprolol Succinate 50 MG Tab.ER PO SCH (09:14)
[2017-05-12] MEDS: traMADol 50 MG Tab PO SCH ×2 (09:23→17:02)
[2017-05-12] MEDS: Acetaminophen 325 MG Tab PO SCH ×2 (12:24→21:12)
[2017-05-12] MEDS: Spironolactone 25 MG Tab PO SCH (12:24)
[2017-05-12] MEDS: Hydrochlorothiazide 25 MG Tab PO SCH (12:24)
[2017-05-12] MEDS: Divalproex Sodium 250 MG Tab.ER PO SCH (21:12)
[2017-05-12] MEDS: ALPRAZolam 0.5 MG Tab PO SCH (21:13)
[2017-05-13] MEDS: Levothyroxine 88 MCG Tab PO SCH (07:10)
[2017-05-13] MEDS: Pantoprazole 40 MG Tab.CR PO SCH (07:10)
[2017-05-13] MEDS: traMADol 50 MG Tab PO SCH (08:36)
[2017-05-13] MEDS: Spironolactone 25 MG Tab PO SCH (08:38)
[2017-05-13] MEDS: Venlafaxine 75 MG Cap.ER PO SCH (08:38)
[2017-05-13] MEDS: Furosemide 20 MG Tab PO SCH (08:39)
[2017-05-13] MEDS: Potassium Chloride 20 MEQ Tab.ER PO SCH (08:39)
[2017-05-13] MEDS: Hydrochlorothiazide 25 MG Tab PO SCH (08:39)
[2017-05-13] MEDS: Multivitamins with Iron/Calcium/Folic Acid/Minerals Tab PO SCH (08:40)
[2017-05-13] MEDS: Prazosin 1 MG Cap PO SCH (08:40)
[2017-05-13] MEDS: Metoprolol Succinate 50 MG Tab.ER PO SCH (08:40)
[2017-05-13 08:43] VITALS: BP 131/71
[2017-05-13] MEDS ORDERED: Spironolactone 25 MG Tab PO SCH (09:00)
[2017-05-13] MEDS ORDERED: Hydrochlorothiazide 25 MG Tab PO SCH (09:00)
--- NOTE | 2017-05-13 09:01 | PCM.PN ---
- General Info Date of Service: 05/13/17 - Review of Systems General: Reports: Weakness HEENT: Reports: No Symptoms Pulmonary: Reports: No Symptoms Cardiovascular: Reports: No Symptoms Gastrointestinal: Reports: No Symptoms Genitourinary: Reports: Frequency Skin: Reports: No Symptoms Neurological: Reports: No Symptoms Psychiatric: Reports: No Symptoms - Patient Data Vitals - Most Recent: Last Vital Signs Temp 97.8 F 05/13/17 07:18 Pulse 77 05/13/17 08:40 Resp 16 05/13/17 07:18 BP 131/71 05/13/17 08:40 Pulse Ox 92 L 05/13/17 07:18 Weight - Most Recent: 146 lb I&O - Last 24 Hours: Intake & Output 05/12/17 05/13/17 05/13/17 22:59 06:59 14:59 Intake Total 850 450 Output Total 250 Balance 850 200 Lab Results Last 24 Hours: Laboratory Results - last 24 hr 05/13/17 Range/Units 08:20 Sodium 135 L (140-148) mmol/L Potassium 4.0 (3.6-5.2) mmol/L Chloride 99 L (100-108) mmol/L Carbon Dioxide 32 (21-32) mmol/L Anion Gap 8.0 (5.0-14.0) mmol/L BUN 12 (7-18) mg/dL Creatinine 0.8 (0.6-1.0) mg/dL Est Cr Clr Drug Dosing 36.26 mL/min Estimated GFR (MDRD) > 60 (>60) Glucose 109 H (74-106) mg/dL Calcium 8.7 (8.5-10.1) mg/dL Total Bilirubin 0.4 (0.2-1.0) mg/dL AST 84 H (15-37) U/L ALT 571 H (12-78) U/L Alkaline Phosphatase 126 H (46-116) U/L Total Protein 7.1 (6.4-8.2) g/dL Albumin 3.2 L (3.4-5.0) g/dL Globulin 3.9 H (2.3-3.5) g/dL Albumin/Globulin Ratio 0.8 L (1.2-2.2) Med Orders - Current: Current Medications Acetaminophen (Tylenol) 650 mg PO BID@1200,2100 [facility] Last Admin: 05/12/17 21:12 Dose: 650 mg Alprazolam (Xanax) 1 mg PO BEDTIME [facility] Last Admin: 05/12/17 21:13 Dose: 1 mg Divalproex Sodium (Depakote Er) 250 mg PO BEDTIME [facility] Last Admin: 05/12/17 21:12 Dose: 250 mg Docusate Sodium (Colace) 100 mg PO DAILY PRN PRN Reason: Constipation Furosemide (Lasix) 20 mg PO DAILY [facility] Last Admin: 05/13/17 08:39 Dose: 20 mg Guaifenesin/Codeine Phosphate (Robitussin Ac) 5 - 10 ml PO Q4H PRN PRN Reason: Cough Last Admin: 05/08/17 21:24 Dose: 10 ml Hydrochlorothiazide (Hydrochlorothiazide) 25 mg PO DAILY [facility] Last Admin: 05/13/17 08:39 Dose: 25 mg Levothyroxine Sodium (Synthroid) 88 mcg PO DAILY@0730 [facility] Last Admin: 05/13/17 07:10 Dose: 88 mcg Metoprolol Succinate (Toprol Xl) 100 mg PO DAILY [facility] Last Admin: 05/13/17 08:40 Dose: 100 mg Multivitamins/Minerals (Thera M Plus) 1 tab PO DAILY [facility] Last Admin: 05/13/17 08:40 Dose: 1 tab Pantoprazole Sodium (Protonix) 40 mg PO ACBREAKFAST [facility] Last Admin: 05/13/17 07:10 Dose: 40 mg Potassium Chloride (Klor-Con M20) 20 meq PO DAILY [facility] Last Admin: 05/13/17 08:39 Dose: 20 meq Prazosin HCl (Minpress) 2 mg PO DAILY [facility] Last Admin: 05/13/17 08:40 Dose: 2 mg Sodium Chloride (Saline Flush) 10 ml FLUSH ASDIRECTED PRN PRN Reason: Keep Vein Open Spironolactone (Aldactone) 25 mg PO DAILY [facility] Last Admin: 05/13/17 08:38 Dose: 25 mg Tramadol HCl (Ultram) 50 mg PO BIDMEALS [facility] Last Admin: 05/13/17 08:36 Dose: 50 mg Venlafaxine HCl (Effexor Xr) 75 mg PO BID [facility] Last Admin: 05/13/17 08:38 Dose: 75 mg Discontinued Medications Furosemide (Lasix) 20 mg PO ONETIME ONE Stop: 05/06/17 20:16 Last Admin: 05/06/17 21:05 Dose: 20 mg Hydrochlorothiazide (Hydrochlorothiazide) 25 mg PO DAILY [facility] Spironolactone (Aldactone) 25 mg PO DAILY [facility] Warfarin Sodium (Coumadin) 1 mg PO ONETIME ONE Stop: 05/08/17 12:46 Last Admin: 05/08/17 13:48 Dose: 1 mg - Exam General: Alert, Oriented HEENT: Pupils Equal, Pupils Reactive, EOMI, Mucous Membr. Moist/[place] Neck: Supple Lungs: Clear to Auscultation, Normal Respiratory Effort Cardiovascular: Regular Rate, Regular Rhythm GI/Abdominal Exam: Soft Skin: Warm, Dry, Intact Psy/Mental Status: Alert, Normal Affect, Normal Mood - Problem List Review Problem List Initiated/Reviewed/Updated: Yes - My Orders Last 24 Hours: My Active Orders 05/12/17 12:00 Hydrochlorothiazide 25 mg PO DAILY Spironolactone [Aldactone] 25 mg PO DAILY 05/13/17 08:13 UA W/MICROSCOPIC [URIN] Routine 05/13/17 08:53 Ready for Discharge [RC] PER UNIT ROUTINE - Plan Plan:: Assessment/plan: #1. CHF With bilateral pleural fluid. CXR stable. Echocardiogram shows low EF at 40-50%. CT abd Neg. I have started Spironolactone yesterday. #2. ASHD: Stable presently #3. Hypertension. Stable #4. Ca breast: Right side mastectomy #5. History of [place] #6. History CVA: #7. History of seizures: continue with medicine. #8. Liver dysfunction. Etiology unknown.Ultrasound was neg. Enzymes today improving. AST and ALT imp[roving. I have reviewed all meds. Plan discharge [place] [facility] [place]. Will be going to the [facility] this morning.
--- NOTE | 2017-05-29 17:46 | PCM.PN ---
- General Info Date of Service: 05/10/17 Functional Status: Reports: Pain Controlled - Review of Systems General: Reports: Weakness, Other (Fatigue) Pulmonary: Reports: No Symptoms Cardiovascular: Reports: No Symptoms Gastrointestinal: Reports: No Symptoms Genitourinary: Reports: No Symptoms Musculoskeletal: Reports: No Symptoms Skin: Reports: No Symptoms Psychiatric: Reports: No Symptoms - Patient Data Vitals - Most Recent: Last Vital Signs Temp 97.8 F 05/13/17 07:18 Pulse 77 05/13/17 08:40 Resp 16 05/13/17 07:18 BP 131/71 05/13/17 08:40 Pulse Ox 92 L 05/13/17 07:18 Weight - Most Recent: 149 lb 14.629 oz Med Orders - Current: Current Medications Discontinued Medications Acetaminophen (Tylenol) 650 mg PO BID@1200,2100 [facility] Last Admin: 05/12/17 21:12 Dose: 650 mg Alprazolam (Xanax) 1 mg PO BEDTIME [facility] Last Admin: 05/12/17 21:13 Dose: 1 mg Divalproex Sodium (Depakote Er) 250 mg PO BEDTIME [facility] Last Admin: 05/12/17 21:12 Dose: 250 mg Docusate Sodium (Colace) 100 mg PO DAILY PRN PRN Reason: Constipation Furosemide (Lasix) 20 mg PO DAILY [facility] Last Admin: 05/13/17 08:39 Dose: 20 mg Furosemide (Lasix) 20 mg PO ONETIME ONE Stop: 05/06/17 20:16 Last Admin: 05/06/17 21:05 Dose: 20 mg Guaifenesin/Codeine Phosphate (Robitussin Ac) 5 - 10 ml PO Q4H PRN PRN Reason: Cough Last Admin: 05/08/17 21:24 Dose: 10 ml Hydrochlorothiazide (Hydrochlorothiazide) 25 mg PO DAILY [facility] Hydrochlorothiazide (Hydrochlorothiazide) 25 mg PO DAILY [facility] Last Admin: 05/13/17 08:39 Dose: 25 mg Levothyroxine Sodium (Synthroid) 88 mcg PO DAILY@0730 [facility] Last Admin: 05/13/17 07:10 Dose: 88 mcg Metoprolol Succinate (Toprol Xl) 100 mg PO DAILY [facility] Last Admin: 05/13/17 08:40 Dose: 100 mg Multivitamins/Minerals (Thera M Plus) 1 tab PO DAILY [facility] Last Admin: 05/13/17 08:40 Dose: 1 tab Pantoprazole Sodium (Protonix) 40 mg PO ACBREAKFAST [facility] Last Admin: 05/13/17 07:10 Dose: 40 mg Potassium Chloride (Klor-Con M20) 20 meq PO DAILY [facility] Last Admin: 05/13/17 08:39 Dose: 20 meq Prazosin HCl (Minpress) 2 mg PO DAILY [facility] Last Admin: 05/13/17 08:40 Dose: 2 mg Sodium Chloride (Saline Flush) 10 ml FLUSH ASDIRECTED PRN PRN Reason: Keep Vein Open Spironolactone (Aldactone) 25 mg PO DAILY [facility] Spironolactone (Aldactone) 25 mg PO DAILY [facility] Last Admin: 05/13/17 08:38 Dose: 25 mg Tramadol HCl (Ultram) 50 mg PO BIDMEALS [facility] Last Admin: 05/13/17 08:36 Dose: 50 mg Venlafaxine HCl (Effexor Xr) 75 mg PO BID [facility] Last Admin: 05/13/17 08:38 Dose: 75 mg Warfarin Sodium (Coumadin) 1 mg PO ONETIME ONE Stop: 05/08/17 12:46 Last Admin: 05/08/17 13:48 Dose: 1 mg - Exam General: Alert, Oriented HEENT: Pupils Equal, Pupils Reactive, EOMI, Mucous Membr. Moist/[place] Neck: Supple Lungs: Clear to Auscultation, Normal Respiratory Effort Cardiovascular: Regular Rate, Regular Rhythm GI/Abdominal Exam: Normal Bowel Sounds, Soft, Non-Tender, No Organomegaly, No Distention, No Abnormal Bruit, No Mass, Pelvis Stable Extremities: Normal Inspection, Normal Range of Motion, Non-Tender, No Pedal Edema, Normal Capillary Refill - Problem List Review Problem List Initiated/Reviewed/Updated: Yes - Plan Plan:: Assessment/plan: #1. CHF With bilateral pleural fluid. CXR stable. Echocardiogram shows low EF at 40-50%. CT abd Neg. I have started Spironolactone yesterday. #2. ASHD: Stable presently #3. Hypertension. Stable #4. Ca breast: Right side mastectomy #5. History of [place] #6. History CVA: #7. History of seizures: continue with medicine. #8. Liver dysfunction. Etiology unknown.Ultrasound was neg. Enzymes today improving. AST and ALT imp[roving. I have reviewed all meds. Plan discharge [place] today. Will be going to the [place] this morning.
== END 2017-05-13 09:25 | DRG 188 ==
LOC: JP.ED 12:20 → JP.MS 14:37
PROVIDERS: ADMIT Internal Medicine; ATTEND Internal Medicine
PROC: 0W9B3ZZ Drainage of Left Pleural Cavity, Percutaneous Approach (ICD-10-PCS; principal; 2017-05-06)
DX: J90 Pleural effusion, not elsewhere classified (principal); I50.9 Heart failure, unspecified; R10.9 Unspecified abdominal pain; K76.89 Other specified diseases of liver; G30.9 Alzheimer's disease, unspecified; F02.80 Dementia in other diseases classified elsewhere, unspecified severity, without behavioral disturbance, psychotic disturbance, mood disturbance, and anxiety; I25.10 Atherosclerotic heart disease of native coronary artery without angina pectoris; I10 Essential (primary) hypertension; M79.7 Fibromyalgia; F32.9 Major depressive disorder, single episode, unspecified; E03.9 Hypothyroidism, unspecified; D64.9 Anemia, unspecified; C50.911 Malignant neoplasm of unspecified site of right female breast; G40.909 Epilepsy, unspecified, not intractable, without status epilepticus; I25.2 Old myocardial infarction; Z88.8 Allergy status to other drugs, medicaments and biological substances; Z79.899 Other long term (current) drug therapy; Z91.040 Latex allergy status; Z95.1 Presence of aortocoronary bypass graft; Z95.5 Presence of coronary angioplasty implant and graft; Z86.73 Personal history of transient ischemic attack (TIA), and cerebral infarction without residual deficits; Z85.820 Personal history of malignant melanoma of skin
CPT/HCPCS: 36415; 71010; 71010-26; 71020; 71020-26; 74176; 74176-26; 76705; 76705-26; 80048; 80053; 80074; 81001; 82140; 83605; 83615; 83690; 84075; 84157; 84315; 84450; 84460; 84484; 85025; 87070; 87205; 89050; 93306; 93306-26; 94762; 97110-GP; 97162-GP; 97530-GP; 99285; 99285-25; A9270-GY

== ENCOUNTER 2017-08-13 11:02 | Emergency (ER) | payer MEDICARE, BC ==
[2017-08-13] MEDS ORDERED: Sodium Chloride 0.9% 10 ML Syringe FLUSH PRN (11:25)
[2017-08-13] MEDS ORDERED: Sodium Chloride 0.9% 1,000 ML IV SCH (11:30)
--- NOTE | 2017-08-13 11:58 | CR ---
Heart size stable. Sternotomy. Remote right rib fractures. Small left pleural effusion similar with a telectasis or infiltrate left lung base. Findings similar compared to 05/12/2017.
--- NOTE | 2017-08-13 12:42 | CT ---
CT head without contrast indication: Seizure versus CVA. Total DLP 727. Comparison: 10/31/2016. Findings: Remote left MCA distribution territorial infarct. Vascular calcifications. No subacute terr itorial infarct. No acute blood product. No subdural hematoma. Calvarium intact. Impression: 1. No acute intracranial process by CT.
[2017-08-13 15:55] VITALS: BP 145/58
--- NOTE | 2017-08-13 16:04 | EDM.PDOC ---
ED HPI GENERAL MEDICAL PROBLEM - General Chief Complaint: Neuro Symptoms/Deficits Stated Complaint: STROKE ? Time Seen by Provider: 08/13/17 11:24 Source of Information: Reports: Patient, Family History Limitations: Reports: Altered Mental Status - History of Present Illness INITIAL COMMENTS - FREE TEXT/NARRATIVE: This patient was brought in by EMS because of a period of weakness in an responsiveness. Her said that normally she gets around with a walker and does okay. This morning they ate breakfast and then he helped her get ready for a shower. She had her shower and then got out. She went to the bathroom and then set on the stool. Her left and when he came back short time later she was sort of leaning against the wall and seemed unresponsive. He has seen this happened a few times before. This episode lasted about 40 minutes when she was unresponsive. Afterwards she said that she hurts all over. She seemed to pass out and for a couple of times for 3-4 minutes each time. She told her that she wanted to come to the emergency room. She said she saw Dr. Gomez last week and it was noted that her blood pressure was low. Usually it' s in the 120/60 range. She denies any nausea vomiting or diarrhea. We note that this episode this morning happened right after she had a bowel movement. It was not described as diarrhea. 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 She's had some right-sided weakness since then and some difficulty with speech. Her and daughter said that each time she has one of these episodes her speech gets worse and worse. Headache Pain Score (Numeric/FACES): 3 - Related Data Allergies Allergy/AdvReac Type Severity Reaction Status Date / Time ciprofloxacin HCl Allergy Rash Verified 08/13/17 11:29 [From Cipro] Latex, Natural Rubber Allergy Cannot Verified 08/13/17 11:29 Remember levofloxacin Allergy Rash Verified 08/13/17 11:29 Sulfa (Sulfonamide Allergy Rash Verified 08/13/17 11:29 Antibiotics) diazepam AdvReac Change Verified 08/13/17 11:29 Mental Status fentanyl AdvReac Change Verified 08/13/17 11:29 Mental Status hydrocodone [Hydrocodone] AdvReac Change Verified 08/13/17 11:29 Mental Status hydrocodone bitartrate AdvReac Change Verified 08/13/17 11:29 [From Lorcet ] Mental Status hydromorphone HCl AdvReac Change Verified 08/13/17 11:29 [From Dilaudid] Mental Status morphine AdvReac Change Verified 08/13/17 11:29 Mental Status pregabalin [From Lyrica] AdvReac Change Verified 08/13/17 11:29 Mental Status Home Meds: Home Meds Levothyroxine [Synthroid] 88 mcg PO DAILY 05/28/13 [History] Multivitamin with Minerals [Multiple Vitamin] 1 tab PO DAILY 05/28/13 [History] ALPRAZolam [Xanax] 1 mg PO BID 05/29/13 [History] atorvaSTATin [Lipitor] 40 mg PO DAILY 11/30/14 [History] Pantoprazole Sodium [Protonix] 40 mg PO DAILY 02/28/15 [History] Docusate Sodium [Colace] 100 mg PO DAILY PRN 11/15/15 [History] Calcium Carbonate/Vitamin D3 [Calcium 500 + Vit D 400] 1 tab PO DAILY 03/03/16 [ History] Prazosin [Minpress] 2 mg PO DAILY 03/03/16 [History] Venlafaxine HCl [Venlafaxine ER] 75 mg PO BID 03/03/16 [History] Acetaminophen 650 mg PO BID PRN 12/30/16 [History] Ibuprofen [Advil] 400 mg PO BIDMEALS PRN 12/30/16 [History] Codeine/guaiFENesin [Robitussin AC] 5 - 10 ml PO Q4H PRN #0 cup 01/01/17 [Rx] Metoprolol Succinate [Toprol XL] 100 mg PO DAILY 05/06/17 [History] Acetaminophen [Tylenol] 325 mg PO TID 05/07/17 [History] Furosemide [Lasix] 20 mg PO DAILY tablet 05/12/17 [Rx] Potassium Chloride [Klor-Con M20] 20 meq PO DAILY tab.er 05/12/17 [Rx] Spironolactone [Aldactone] 25 mg PO DAILY tablet 05/13/17 [Rx] Divalproex Sodium [Depakote ER] 250 mg PO BID 08/13/17 [History] traMADol [Ultram] 50 mg PO BEDTIME 08/13/17 [History] Past Medical History HEENT History: Reports: Cataract, Hard of Hearing, Impaired Vision Other HEENT History: removed remnants of tonsils. Cardiovascular History: Reports: Bypass, CAD, Hypertension, Stents Other Cardiovascular History: cabg Respiratory History: Reports: Other (See Below) Other Respiratory History: pleural effusion this hospital stay, recent cough lasting over a month Genitourinary History: Reports: Renal Calculus Musculoskeletal History: Reports: Fibromyalgia Neurological History: Reports: CVA, Seizure, TIA, Other (See Below) Other Neuro History: CVA affecting Rt side per family Psychiatric History: Reports: Depression, Suicide Attempt, Suicidal Ideation Endocrine/Metabolic History: Reports: Hypothyroidism Hematologic History: Reports: Anemia, Blood Transfusion(s) Oncologic (Cancer) History: Reports: Basal Cell Carcinoma, Breast Other Oncologic History: Melanoma Dermatologic History: Reports: Melanoma Other Dermatologic History: healing wound to left forehead from a melanoma removal - Infectious Disease History Infectious Disease History: Reports: Chicken Pox - Past Surgical History Cardiovascular Surgical History: Reports: Coronary Artery Bypass Respiratory Surgical History: Reports: Thoracentesis GI Surgical History: Reports: Cholecystectomy, Hernia, Inguinal Female Surgical History: Reports: Mastectomy, Other (See Below) Other Female Surgeries/Procedures: breast ca and mastectomy Rt side Musculoskeletal Surgical History: Reports: Knee Replacement Oncologic Surgical History: Reports: Mastectomy, Other (See Below) Other Oncologic Surgeries/Procedures: Rt side Social & Family History - Family History Family Medical History: Noncontributory HEENT: Reports: None : Reports: Other (See Below) Other Family History: son, kidney transplant Oncologic: Reports: Pancreatic, Other (See Below) Other Oncologic Family History: son from pancreatic ca - Tobacco Use Smoking Status *Q: Never Smoker Second Hand Smoke Exposure: No - Caffeine Use Caffeine Use: Reports: Coffee, Tea Other Caffeine Use: 2-3 cups per day - Alcohol Use Days Per Week of Alcohol Use: 1 Number of Drinks Per Day: 1 Total Drinks Per Week: 1 - Recreational Drug Use Recreational Drug Use: No ED ROS GENERAL - Review of Systems Review Of Systems: Unable To Obtain (All symptoms were discussed in the history of present illness. The patient otherwise is not able to give a review of systems) ED EXAM, NEURO - Physical Exam Exam: See Below Exam Limited By: Altered Mental Status General Appearance: Other (This lady seems to be lethargic. She's having some difficulty speaking and finding words. She seems to go to sleep frequently and is difficult to arouse. At one time I have to pry her eyes open.) Eye Exam: Bilateral Eye: EOMI (Difficult to get her to cooperate for this), PERRL (Pupils are both about 2 mm and reactive.) Nose: Normal Inspection Throat/Mouth: Normal Inspection (Mucous membranes are moist) Head Exam: Atraumatic Neck: Normal Inspection Respiratory/Chest: Lungs Clear Cardiovascular: Regular Rate, Rhythm, Other (Initially her radial pulses are very thready and almost nonpalpable) GI/Abdominal: Normal Bowel Sounds, Soft, Non-Tender Neurological: CN II-XII Intact (After hydration and her mental status is normal her cranial nerves appear to be normal. Strength is equal bilaterally. Her thinks she is back to her baseline), Other (Initially she is very lethargic sometimes even seems obtunded. It's noted that her blood pressure is down in the 80-90 range during this period of time. She appeared to move all extremities) Course - Vital Signs Last Recorded V/S: Last Vital Signs Temp 34.4 C L 08/13/17 11:14 Pulse 85 08/13/17 15:54 Resp 16 08/13/17 15:54 BP 145/58 H 08/13/17 15:54 Pulse Ox 95 08/13/17 15:54 - Orders/Labs/Meds Orders: Active Orders 24 hr Category Date Time Status EKG Documentation Completion [RC] ASDIRECTED Care 08/13/17 11:25 Active CULTURE BLOOD [BC] Urgent Lab 08/13/17 11:40 Received CULTURE BLOOD [BC] Urgent Lab 08/13/17 11:48 Received Sodium Chloride 0.9% [Normal Saline] 1,000 ml Med 08/13/17 11:30 Active IV ASDIRECTED Sodium Chloride 0.9% [Saline Flush] Med 08/13/17 11:25 Active 10 ml FLUSH ASDIRECTED PRN Blood Culture x2 Reflex Set [OM.PC] Urgent Oth 08/13/17 11:26 Ordered Saline Lock Insert [OM.PC] Urgent Oth 08/13/17 11:25 Ordered EKG 12 Lead [EK] Urgent Ther 08/13/17 11:25 Ordered Medication Orders Sodium Chloride (Normal Saline) 1,000 mls @ 999 mls/hr IV ASDIRECTED SUPA Last Admin: 08/13/17 11:52 Dose: 999 mls/hr Sodium Chloride (Saline Flush) 10 ml FLUSH ASDIRECTED PRN PRN Reason: Keep Vein Open Last Admin: 08/13/17 11:51 Dose: 10 ml Labs: Laboratory Tests 08/13/17 08/13/17 08/13/17 Range/Units 11:40 11:40 11:40 WBC 8.5 (4.5-11.0) K/uL RBC 3.99 (3.30-5.50) M/uL Hgb 12.1 (12.0-15.0) g/dL Hct 37.0 (36.0-48.0) % MCV 93 (80-98) fL MCH 30 (27-31) pg MCHC 33 (32-36) % Plt Count 216 (150-400) K/uL Neut % (Auto) 75 H (36-66) % Lymph % (Auto) 16 L (24-44) % [place] % (Auto) 8 H (2-6) % Eos % (Auto) 1 L (2-4) % Baso % (Auto) 0 (0-1) % Sodium 134 L (140-148) mmol/L Potassium 4.3 (3.6-5.2) mmol/L Chloride 97 L (100-108) mmol/L Carbon Dioxide 29 (21-32) mmol/L Anion Gap 12.3 (5.0-14.0) mmol/L BUN 16 (7-18) mg/dL Creatinine 1.0 (0.6-1.0) mg/dL Est Cr Clr Drug Dosing 29.01 mL/min Estimated GFR (MDRD) 53 L (>60) Glucose 134 H (74-106) mg/dL Lactic Acid 2.7 H (0.4-2.0) mmol/L Calcium 8.8 (8.5-10.1) mg/dL Total Bilirubin 0.3 (0.2-1.0) mg/dL AST 21 (15-37) U/L ALT 22 D (12-78) U/L Alkaline Phosphatase 92 (46-116) U/L Troponin I < 0.017 (0.000-0.056) ng/mL Total Protein 6.4 (6.4-8.2) g/dL Albumin 3.2 L (3.4-5.0) g/dL Globulin 3.2 (2.3-3.5) g/dL Albumin/Globulin Ratio 1.0 L (1.2-2.2) Urine Color Urine Appearance Urine pH (4.5-8.0) Ur Specific [place] (1.008-1.030) Urine Protein (NEGATIVE) mg/dL Urine Glucose (UA) (NEGATIVE) mg/dL Urine Ketones (NEGATIVE) mg/dL Urine Occult Blood (NEGATIVE) Urine Nitrite (NEGATIVE) Urine Bilirubin (NEGATIVE) Urine Urobilinogen (NORMAL) mg/dL Ur Leukocyte Esterase (NEGATIVE) Urine RBC (0-5) Urine WBC (0-5) Ur Epithelial Cells Amorphous Sediment Urine Bacteria Urine Mucus 08/13/17 Range/Units 14:44 WBC (4.5-11.0) K/uL RBC (3.30-5.50) M/uL Hgb (12.0-15.0) g/dL Hct (36.0-48.0) % MCV (80-98) fL MCH (27-31) pg MCHC (32-36) % Plt Count (150-400) K/uL Neut % (Auto) (36-66) % Lymph % (Auto) (24-44) % [place] % (Auto) (2-6) % Eos % (Auto) (2-4) % Baso % (Auto) (0-1) % Sodium (140-148) mmol/L Potassium (3.6-5.2) mmol/L Chloride (100-108) mmol/L Carbon Dioxide (21-32) mmol/L Anion Gap (5.0-14.0) mmol/L BUN (7-18) mg/dL Creatinine (0.6-1.0) mg/dL Est Cr Clr Drug Dosing mL/min Estimated GFR (MDRD) (>60) Glucose (74-106) mg/dL Lactic Acid (0.4-2.0) mmol/L Calcium (8.5-10.1) mg/dL Total Bilirubin (0.2-1.0) mg/dL AST (15-37) U/L ALT (12-78) U/L Alkaline Phosphatase (46-116) U/L Troponin I (0.000-0.056) ng/mL Total Protein (6.4-8.2) g/dL Albumin (3.4-5.0) g/dL Globulin (2.3-3.5) g/dL Albumin/Globulin Ratio (1.2-2.2) Urine Color Yellow Urine Appearance Clear Urine pH 5.0 (4.5-8.0) Ur Specific [place] 1.015 (1.008-1.030) Urine Protein Negative (NEGATIVE) mg/dL Urine Glucose (UA) Normal (NEGATIVE) mg/dL Urine Ketones Negative (NEGATIVE) mg/dL Urine Occult Blood Moderate (NEGATIVE) Urine Nitrite Negative (NEGATIVE) Urine Bilirubin Negative (NEGATIVE) Urine Urobilinogen Normal (NORMAL) mg/dL Ur Leukocyte Esterase Negative (NEGATIVE) Urine RBC 0-5 (0-5) Urine WBC 0-5 (0-5) Ur Epithelial Cells Rare Amorphous Sediment Not seen Urine Bacteria Moderate Urine Mucus Not seen Meds: Medications Generic Name Dose Route Start Last Admin Trade Name Freq PRN Reason Stop Dose Admin Sodium Chloride 1,000 mls @ 999 mls/hr 08/13/17 11:30 08/13/17 11:52 Normal Saline IV 999 mls/hr ASDIRECTED SUPA Administration Sodium Chloride 10 ml 08/13/17 11:25 08/13/17 11:51 Saline Flush FLUSH 10 ml ASDIRECTED PRN Administration Keep Vein Open - Radiology Interpretation Free Text/Narrative:: Chest x-ray showed normal heart size there is blunting of the right costophrenic angle there appears to be a small effusion possibly a little bit of infiltrate in the left base but this is unchanged from her last chest x-ray in April of this year area - Re-Assessments/Exams Free Text/Narrative Re-Assessment/Exam: 08/13/17 16:06 It was noted this lady's temperature was low. Her heart rate appeared to be in the 60s. Her blood pressure was in the 80-90 range. We assume this lady may be septic or might even had a CVA. An EKG was done which showed no evidence of any ischemia or dysrhythmia. The bear hugger blower was then put under couple of warm blankets because she was feeling very cold. Temperature eventually came up. She was hydrated with 1 L IV normal saline. Free Text/Narrative Re-Assessment/Exam: 08/13/17 16:08 all labs were reviewed on this patient. There is nothing unusual about these labs except for an elevated lactic acid. I believe the elevated lactic acid is probably from the episode of hypotension that she had. This is this hypotension has completely resolved and her blood pressure is now in the 140s she's awake alert and conversant. We did get her up to walk around with a walker and she appeared to be back to her baseline area it's unclear why she was hypothermic and hypotensive. This did seem to be after a shower and having a bowel movement so that could have something to do with it. She may have are the been volume depleted. At any rate I don't think she has had a CVA and AL or is septic. These things were discussed with her and her daughter. They' ll need to keep a close eye on her make sure she is getting plenty of liquids and check her blood pressure for any problems return to the ER or contact her doctor Departure - Departure Time of Disposition: 16:10 Disposition: Home, Self-Care 01 Condition: Fair Clinical Impression: Near syncope, Hypotension, Hypothermia - Discharge Information Referrals: PCP,None [Primary Care Provider] - Additional Instructions: Be sure to drink plenty of liquids so you don't get dehydrated. Your blood pressure should be checked several times a day to make sure it's not getting low. It's okay if it's a little bit high but blood pressure that's low that is going below 100 definitely is abnormal. In fact a blood pressure between 100 and 110 is probably bad for you. If the blood pressure is low then he should contact your Dr. or return to the ER. If you have any other symptoms or feel like you might be getting the flu or anything like that be sure to come back to the ER right away - My Orders Last 24 Hours: My Active Orders 08/13/17 11:25 EKG Documentation Completion [RC] ASDIRECTED Sodium Chloride 0.9% [Saline Flush] 10 ml FLUSH ASDIRECTED PRN Saline Lock Insert [OM.PC] Urgent EKG 12 Lead [EK] Urgent 08/13/17 11:26 Blood Culture x2 Reflex Set [OM.PC] Urgent 08/13/17 11:30 Sodium Chloride 0.9% [Normal Saline] 1,000 ml IV ASDIRECTED 08/13/17 11:40 CULTURE BLOOD [BC] Urgent 08/13/17 11:48 CULTURE BLOOD [BC] Urgent - Assessment/Plan Last 24 Hours: My Active Orders 08/13/17 11:25 EKG Documentation Completion [RC] ASDIRECTED Sodium Chloride 0.9% [Saline Flush] 10 ml FLUSH ASDIRECTED PRN Saline Lock Insert [OM.PC] Urgent EKG 12 Lead [EK] Urgent 08/13/17 11:26 Blood Culture x2 Reflex Set [OM.PC] Urgent 08/13/17 11:30 Sodium Chloride 0.9% [Normal Saline] 1,000 ml IV ASDIRECTED 08/13/17 11:40 CULTURE BLOOD [BC] Urgent 08/13/17 11:48 CULTURE BLOOD [BC] Urgent
== END 2017-08-13 16:24 | disposition home or self-care (01) ==
LOC: JP.ED 11:02
DX: I95.9 Hypotension, unspecified (principal); T68.XXXA Hypothermia, initial encounter; I10 Essential (primary) hypertension; I25.10 Atherosclerotic heart disease of native coronary artery without angina pectoris; F32.9 Major depressive disorder, single episode, unspecified; E03.9 Hypothyroidism, unspecified; Z86.2 Personal history of diseases of the blood and blood-forming organs and certain disorders involving the immune mechanism; Z88.1 Allergy status to other antibiotic agents; Z91.040 Latex allergy status; Z88.2 Allergy status to sulfonamides; Z88.5 Allergy status to narcotic agent; X58.XXXA Exposure to other specified factors, initial encounter
CPT/HCPCS: 36415; 70450; 71010; 80053; 81001; 83605; 84484; 85025; 87040; 93005; 96360; 99285; J7040; J7050; 93010

== ENCOUNTER 2018-03-27 12:03 | Inpatient (IN) | payer MEDICARE, BC ==
--- NOTE | 2018-03-27 12:14 | EDM.PDOC ---
ED HPI GENERAL MEDICAL PROBLEM - General Stated Complaint: TOOK TOO MUCH MEDICATION Time Seen by Provider: 03/27/18 12:11 Source of Information: Reports: EMS, Police History Limitations: Reports: Altered Mental Status, Physical Impairment - History of Present Illness INITIAL COMMENTS - FREE TEXT/NARRATIVE: 87-year-old female with a previous history of stroke, ongoing depression with occasional mention of suicidal ideation. This morning she was found in the bathroom lethargic, unable to communicate with poor efforts of breathing. She has "spells" like this in the family usually just watches her until she improves , but they found a bottle of pills that were empty and another bottle nearby that was spilled. The empty bottle was lorazepam, the spilled was Zofran. EMS was called and when they arrived she wasn't breathing spontaneously so they assisted her and she started breathing. She is now breathing on her own with normal O2 sats but is still very sedated. She is afebrile. Onset: Unknown/Unsure (Last known normal was 10:15 AM) Severity: Moderate - Related Data Allergies Allergy/AdvReac Type Severity Reaction Status Date / Time ciprofloxacin HCl Allergy Rash Verified 03/27/18 12:41 [From Cipro] Latex, Natural Rubber Allergy Cannot Verified 03/27/18 12:41 Remember levofloxacin Allergy Rash Verified 03/27/18 12:41 Sulfa (Sulfonamide Allergy Rash Verified 03/27/18 12:41 Antibiotics) tramadol Allergy Confusion Verified 03/27/18 12:42 diazepam AdvReac Change Verified 03/27/18 12:41 Mental Status fentanyl AdvReac Change Verified 03/27/18 12:41 Mental Status hydrocodone [Hydrocodone] AdvReac Change Verified 03/27/18 12:41 Mental Status hydrocodone bitartrate AdvReac Change Verified 03/27/18 12:41 [From Lorcet 10] Mental Status hydromorphone HCl AdvReac Change Verified 03/27/18 12:41 [From Dilaudid] Mental Status morphine AdvReac Change Verified 03/27/18 12:41 Mental Status pregabalin [From Lyrica] AdvReac Change Verified 03/27/18 12:41 Mental Status Home Meds: Home Meds Levothyroxine [Synthroid] 88 mcg PO DAILY 05/28/13 [History] Multivitamin with Minerals [Multiple Vitamin] 1 tab PO DAILY 05/28/13 [History] ALPRAZolam [Xanax] 1 mg PO BID 05/29/13 [History] Pantoprazole Sodium [Protonix] 40 mg PO DAILY 02/28/15 [History] Calcium Carbonate/Vitamin D3 [Calcium 500 + Vit D 400] 1 tab PO DAILY 03/03/16 [ History] Venlafaxine HCl [Venlafaxine ER] 75 mg PO BID 03/03/16 [History] Acetaminophen 650 mg PO BID PRN 12/30/16 [History] Acetaminophen [Tylenol] 325 mg PO TID 05/07/17 [History] Furosemide [Lasix] 20 mg PO DAILY tablet 05/12/17 [Rx] Spironolactone [Aldactone] 25 mg PO DAILY tablet 05/13/17 [Rx] Divalproex Sodium [Depakote ER] 250 mg PO BID 08/13/17 [History] traMADol [Ultram] 50 mg PO BEDTIME 08/13/17 [History] Past Medical History HEENT History: Reports: Cataract, Hard of Hearing, Impaired Vision Other HEENT History: removed remnants of tonsils. Cardiovascular History: Reports: Bypass, CAD, Hypertension, Stents Other Cardiovascular History: cabg Respiratory History: Reports: Other (See Below) Other Respiratory History: pleural effusion this hospital stay, recent cough lasting over a month Genitourinary History: Reports: Renal Calculus Musculoskeletal History: Reports: Back Pain, Chronic, Fibromyalgia Neurological History: Reports: CVA, Seizure, TIA, Other (See Below) Other Neuro History: CVA affecting Rt side per family Psychiatric History: Reports: Depression, Suicide Attempt, Suicidal Ideation Endocrine/Metabolic History: Reports: Hypothyroidism Hematologic History: Reports: Anemia, Blood Transfusion(s) Oncologic (Cancer) History: Reports: Basal Cell Carcinoma, Breast Other Oncologic History: Melanoma Dermatologic History: Reports: Melanoma Other Dermatologic History: healing wound to left forehead from a melanoma removal - Infectious Disease History Infectious Disease History: Reports: Chicken Pox - Past Surgical History Cardiovascular Surgical History: Reports: Coronary Artery Bypass Respiratory Surgical History: Reports: Thoracentesis GI Surgical History: Reports: Cholecystectomy, Hernia, Inguinal Female Surgical History: Reports: Mastectomy, Other (See Below) Other Female Surgeries/Procedures: breast ca and mastectomy Rt side Musculoskeletal Surgical History: Reports: Knee Replacement Oncologic Surgical History: Reports: Mastectomy, Other (See Below) Other Oncologic Surgeries/Procedures: Rt side Social & Family History - Family History Family Medical History: Noncontributory HEENT: Reports: None : Reports: Other (See Below) Other Family History: son, kidney transplant Oncologic: Reports: Pancreatic, Other (See Below) Other Oncologic Family History: son from pancreatic ca - Caffeine Use Caffeine Use: Reports: Coffee Other Caffeine Use: 2-3 cups per day ED ROS GENERAL - Review of Systems Review Of Systems: See Below Constitutional: Denies: Fever Respiratory: Denies: Shortness of Breath Cardiovascular: Denies: Chest Pain GI/Abdominal: Denies: Nausea, Vomiting Skin: Reports: Pallor ED EXAM, GENERAL - Physical Exam Exam: See Below Exam Limited By: Physical Impairment General Appearance: Lethargic Eye Exam: Bilateral Eye: EOMI, PERRL Head: Atraumatic Respiratory/Chest: No Respiratory Distress, Lungs Clear Cardiovascular: Regular Rate, Rhythm GI/Abdominal: Soft, Non-Tender Extremities: Other (Patient has an abrasion on the anterior aspect of her right lower fernandez which looks new) Neurological: Inattentive, Disoriented, Slow to Respond Course - Vital Signs Last Recorded V/S: Last Vital Signs Temp 97.4 F 03/27/18 12:31 Pulse 66 03/27/18 15:35 Resp 16 03/27/18 12:31 BP 99/36 L 03/27/18 16:07 Pulse Ox 95 03/27/18 15:35 - Orders/Labs/Meds Orders: Medication Orders Divalproex Sodium (Depakote Er) 250 mg PO BID SUPA Furosemide (Lasix) 20 mg PO DAILY SUPA Levothyroxine Sodium (Synthroid) 88 mcg PO ACBREAKFAST [facility] Multivitamins/Minerals (Thera M Plus) 1 tab PO DAILY SUPA Pantoprazole Sodium (Protonix) 40 mg PO ACBREAKFAST SUPA Spironolactone (Aldactone) 25 mg PO DAILY SUPA Venlafaxine HCl (Effexor Xr) 75 mg PO BID SUPA Meds: Medications Generic Name Dose Route Start Last Admin Trade Name Freq PRN Reason Stop Dose Admin Divalproex Sodium 250 mg 03/27/18 21:00 Depakote Er PO BID SUPA Furosemide 20 mg 03/28/18 09:00 Lasix PO DAILY SUPA Levothyroxine Sodium 88 mcg 03/28/18 07:30 Synthroid PO ACBREAKFAST [facility] Multivitamins/Minerals 1 tab 03/28/18 09:00 Thera M Plus PO DAILY [facility] Pantoprazole Sodium 40 mg 03/28/18 07:30 Protonix PO ACBREAKFAST SUPA Spironolactone 25 mg 03/28/18 09:00 Aldactone PO DAILY [facility] Venlafaxine HCl 75 mg 03/27/18 21:00 Effexor Xr PO BID SUPA - Re-Assessments/Exams Free Text/Narrative Re-Assessment/Exam: 03/27/18 12:15 Patient did wake up briefly asking what happened, "where am I" but when asked what happened or if she knew she took pills she just closed her eyes again. Family does not want any workup if possible just supportive care. I did call her primary physician Michael Gomez, he agreed to come over and talk with the family. 03/27/18 14:54 After discussing the patient's condition with the family, Dr. Gomez decided to admit the patient for observation for a day. She continued to be stable in the emergency room but lethargic. Departure - Departure Time of Disposition: 16:31 Disposition: Admitted As Inpatient 66 Condition: Poor Clinical Impression: Change in mental status Qualifiers: Altered mental status type: stupor Qualified Code(s): R40.1 - Stupor Depression Qualifiers: Depression Type: major depressive disorder Major depression recurrence: recurrent - Discharge Information
--- NOTE | 2018-03-27 16:28 | PCM.HP ---
H&P History of Present Illness - General Date of Service: 03/27/18 Admit Problem/Dx: Admission Diagnosis/Problem Admission Diagnosis/Problem Syncope Source of Information: Family - History of Present Illness Initial Comments - Free Text/Narative: Imani was by herself for about 45 mi when the family came and they found h unconscious sitting in her wheelchair with a bottle of medication spelled. The medication was Zofran and less than 10 pills were taken. She has had these episodes in the past and then she would wake u and do well. She was brought in by ambulance and I was called to see her for admission. The episode started this morning Onset of Symptoms: Reports: Today - Related Data Allergies/Adverse Reactions: Allergies Allergy/AdvReac Type Severity Reaction Status Date / Time ciprofloxacin HCl Allergy Rash Verified 03/27/18 12:41 [From Cipro] Latex, Natural Rubber Allergy Cannot Verified 03/27/18 12:41 Remember levofloxacin Allergy Rash Verified 03/27/18 12:41 Sulfa (Sulfonamide Allergy Rash Verified 03/27/18 12:41 Antibiotics) tramadol Allergy Confusion Verified 03/27/18 12:42 diazepam AdvReac Change Verified 03/27/18 12:41 Mental Status fentanyl AdvReac Change Verified 03/27/18 12:41 Mental Status hydrocodone [Hydrocodone] AdvReac Change Verified 03/27/18 12:41 Mental Status hydrocodone bitartrate AdvReac Change Verified 03/27/18 12:41 [From Lorcet 10/650] Mental Status hydromorphone HCl AdvReac Change Verified 03/27/18 12:41 [From Dilaudid] Mental Status morphine AdvReac Change Verified 03/27/18 12:41 Mental Status pregabalin [From Lyrica] AdvReac Change Verified 03/27/18 12:41 Mental Status Home Medications: Home Meds Levothyroxine [Synthroid] 88 mcg PO DAILY 05/28/13 [History] Multivitamin with Minerals [Multiple Vitamin] 1 tab PO DAILY 05/28/13 [History] ALPRAZolam [Xanax] 1 mg PO BID 05/29/13 [History] Pantoprazole Sodium [Protonix] 40 mg PO DAILY 02/28/15 [History] Calcium Carbonate/Vitamin D3 [Calcium 500 + Vit D 400] 1 tab PO DAILY 03/03/16 [ History] Venlafaxine HCl [Venlafaxine ER] 75 mg PO BID 03/03/16 [History] Acetaminophen 650 mg PO BID PRN 12/30/16 [History] Acetaminophen [Tylenol] 325 mg PO TID 05/07/17 [History] Furosemide [Lasix] 20 mg PO DAILY tablet 05/12/17 [Rx] Spironolactone [Aldactone] 25 mg PO DAILY tablet 05/13/17 [Rx] Divalproex Sodium [Depakote ER] 250 mg PO BID 08/13/17 [History] traMADol [Ultram] 50 mg PO BEDTIME 08/13/17 [History] Past Medical History HEENT History: Reports: Cataract, Hard of Hearing, Impaired Vision Other HEENT History: removed remnants of tonsils. Cardiovascular History: Reports: Bypass, CAD, Hypertension, Stents Other Cardiovascular History: cabg Respiratory History: Reports: Other (See Below) Other Respiratory History: pleural effusion this hospital stay, recent cough lasting over a month Genitourinary History: Reports: Renal Calculus Musculoskeletal History: Reports: Back Pain, Chronic, Fibromyalgia Neurological History: Reports: CVA, Seizure, TIA, Other (See Below) Other Neuro History: CVA affecting Rt side per family Psychiatric History: Reports: Depression, Suicide Attempt, Suicidal Ideation Endocrine/Metabolic History: Reports: Hypothyroidism Hematologic History: Reports: Anemia, Blood Transfusion(s) Oncologic (Cancer) History: Reports: Basal Cell Carcinoma, Breast Other Oncologic History: Melanoma Dermatologic History: Reports: Melanoma Other Dermatologic History: healing wound to left forehead from a melanoma removal - Infectious Disease History Infectious Disease History: Reports: Chicken Pox - Past Surgical History Cardiovascular Surgical History: Reports: Coronary Artery Bypass Respiratory Surgical History: Reports: Thoracentesis GI Surgical History: Reports: Cholecystectomy, Hernia, Inguinal Female Surgical History: Reports: Mastectomy, Other (See Below) Other Female Surgeries/Procedures: breast ca and mastectomy Rt side Musculoskeletal Surgical History: Reports: Knee Replacement Oncologic Surgical History: Reports: Mastectomy, Other (See Below) Other Oncologic Surgeries/Procedures: Rt side Social & Family History - Family History Family Medical History: Noncontributory HEENT: Reports: None : Reports: Other (See Below) Other Family History: son, kidney transplant Oncologic: Reports: Pancreatic, Other (See Below) Other Oncologic Family History: son from pancreatic ca - Tobacco Use Smoking Status *Q: Never Smoker - Caffeine Use Caffeine Use: Reports: Coffee Other Caffeine Use: 2-3 cups per day - Recreational Drug Use Recreational Drug Use: No H&P Review of Systems - Review of Systems: Review Of Systems: Unable To Obtain Exam - Exam Exam: See Below - Vital Signs Vital Signs: Last Vital Signs Temp 97.4 F 03/27/18 12:31 Pulse 66 03/27/18 14:11 Resp 16 03/27/18 12:31 BP 109/46 L 03/27/18 14:11 Pulse Ox 98 03/27/18 14:11 Weight: 150 lb - Exam General: Alert, Oriented, 4 HEENT: Other (Her pupils are equal do not react to Light) Lungs: Clear to Auscultation, Normal Respiratory Effort Cardiovascular: Regular Rate, Regular Rhythm GI/Abdominal Exam: Normal Bowel Sounds, Soft, Non-Tender, No Organomegaly, No Distention, No Abnormal Bruit, No Mass, Pelvis Stable Back Exam: Normal Inspection Extremities: Normal Inspection, Normal Range of Motion, Non-Tender, No Pedal Edema, Normal Capillary Refill Peripheral Pulses: 1+: Radial (L), Radial (R) DTR: 1+: Bicep (L), Bicep (R), Patella (L), Patella (R) - Patient Data Lab Results Last 24 hrs: Laboratory Results - last 24 hr 03/27/18 03/27/18 Range/Units 15:00 15:00 WBC 7.8 (4.5-11.0) K/uL RBC 3.96 (3.30-5.50) M/uL Hgb 12.7 (12.0-15.0) g/dL Hct 37.2 (36.0-48.0) % MCV 94 (80-98) fL MCH 32 H (27-31) pg MCHC 34 (32-36) % Plt Count 265 (150-400) K/uL Neut % (Auto) 57 (36-66) % Lymph % (Auto) 30 (24-44) % [place]ine % (Auto) 11 H (2-6) % Eos % (Auto) 2 (2-4) % Baso % (Auto) 1 (0-1) % Sodium 132 L (140-148) mmol/L Potassium 4.4 (3.6-5.2) mmol/L Chloride 98 L (100-108) mmol/L Carbon Dioxide 31 (21-32) mmol/L Anion Gap 7.4 (5.0-14.0) mmol/L BUN 12 (7-18) mg/dL Creatinine 1.0 (0.6-1.0) mg/dL Est Cr Clr Drug Dosing 32.79 mL/min Estimated GFR (MDRD) 52 L (>60) Glucose 106 (74-106) mg/dL Calcium 8.4 L (8.5-10.1) mg/dL Total Bilirubin 0.3 (0.2-1.0) mg/dL AST 16 (15-37) U/L ALT 18 (12-78) U/L Alkaline Phosphatase 89 (46-116) U/L Total Protein 6.3 L (6.4-8.2) g/dL Albumin 3.2 L (3.4-5.0) g/dL Globulin 3.1 (2.3-3.5) g/dL Albumin/Globulin Ratio 1.0 L (1.2-2.2) Result Diagrams: 03/27/18 15:00 03/27/18 15:00 Problem List Initiated/Reviewed/Updated: Yes Orders Last 24hrs: Active Orders 24 hr Category Date Time Status Patient Status [ADT] Routine ADT 03/27/18 14:46 Active Bedrest Bedside Commode [RC] ASDIRECTED Care 03/27/18 14:46 Active Height and Weight [RC] DAILY Care 03/27/18 14:46 Active Intake and Output [RC] QSHIFT Care 03/27/18 14:53 Active Oxygen Therapy [RC] PRN Care 03/27/18 14:46 Active VTE/DVT Education [RC] Per Unit Routine Care 03/27/18 14:46 Active Vital Signs [RC] Q4H Care 03/27/18 14:46 Active Regular Diet [DIET] Diet 03/27/18 Dinner Active CULTURE URINE [RM] Routine Lab 03/28/18 05:00 Ordered DRUG SCREEN, URINE [URCHEM] Stat Lab 03/27/18 15:02 Ordered Antiembolic Hose [OM.PC] Per Unit Routine Oth 03/27/18 14:54 Ordered Sequential Compression Device [OM.PC] Per Unit Routine Oth 03/27/18 14:54 Ordered Resuscitation Status Routine Resus Stat 03/27/18 14:46 Ordered Assessment/Plan Comment:: Assessment/Plan: #1. Syncope. The etiology of this is unknown. She has done this before whether it was caused by medicine or by a physical or psychological problems is unknown. #2. Fibromyalgia. #3. Hypothyroidism. #4. History of depression. #5. Atherosclerotic heart disease, chronic. #6. Status post CVA with aphas, partial. #7. Chronic renal failure. Laboratory iwhite count was 7.8 with hemoglobin 12.7 and platelet count 265,000 sodium 132 and potassium 4.4. The BUN was 12 and creatinine 1.0 with estimated with refilled dictation rate of 52. Liver functions were unremarkable and alkaline phosphatase was 89, normal. Albumin slightly low at 3.2 as well as total protein 6.3.
[2018-03-27] MEDS: Venlafaxine 75 MG Cap.ER PO SCH (21:37)
[2018-03-27] MEDS: Divalproex Sodium 250 MG Tab.ER PO SCH (21:37)
[2018-03-28] MEDS ORDERED: Levothyroxine 88 MCG Tab PO SCH ×2 (07:30→09:00)
[2018-03-28] MEDS ORDERED: Pantoprazole 40 MG Tab.CR PO SCH (07:30)
[2018-03-28] MEDS: Divalproex Sodium 250 MG Tab.ER PO SCH (08:11)
[2018-03-28] MEDS: Venlafaxine 75 MG Cap.ER PO SCH (08:11)
[2018-03-28] MEDS ORDERED: Non-Formulary Medication 1 Each (Pantoprazole Sodium [Protonix] 40 MG) PO SCH (09:00)
[2018-03-28] MEDS ORDERED: Spironolactone 25 MG Tab PO SCH (09:00)
[2018-03-28] MEDS ORDERED: Furosemide 20 MG Tab PO SCH (09:00)
[2018-03-28] MEDS ORDERED: Multivitamins with Iron/Calcium/Folic Acid/Minerals Tab PO SCH (09:00)
[2018-03-28] MEDS ORDERED: Non-Formulary Medication 1 Each (Multivitamin With Minerals [Multiple Vitamin] 1 TAB) PO SCH (09:00)
[2018-03-28 09:12] VITALS: BP 150/48
--- NOTE | 2018-03-28 10:28 | PCM.DCSUM1 ---
Discharge Summary - Hospital Course Free Text/Narrative:: She is alert at the time of discharge said she was before with no residual neurological deficit. HPI Initial Comments: Imani was admitted after having a syncopal episode was found at home unconscious and she has no idea what happened he denies taking any pills. She has done this before and etiology has not been found. Diagnosis: Stroke: No - Discharge Data Discharge Date: 03/28/18 Discharge Disposition: Home, Self-Care 01 Condition: Fair - Patient Summary/Data Hospital Course: She came to the emergency room by ambulance and was lethargic unable to wake her up. She was admitted for observation. - Patient Instructions Diet: Heart Healthy Diet Activity: As Tolerated - Discharge Plan Home Medications: Home Meds Levothyroxine [Synthroid] 88 mcg PO DAILY 05/28/13 [History] Multivitamin with Minerals [Multiple Vitamin] 1 tab PO DAILY 05/28/13 [History] ALPRAZolam [Xanax] 1 mg PO BID 05/29/13 [History] Pantoprazole Sodium [Protonix] 40 mg PO DAILY 02/28/15 [History] Calcium Carbonate/Vitamin D3 [Calcium 500 + Vit D 400] 1 tab PO DAILY 03/03/16 [ History] Venlafaxine HCl [Venlafaxine ER] 75 mg PO BID 03/03/16 [History] Acetaminophen 650 mg PO BID PRN 12/30/16 [History] Acetaminophen [Tylenol] 325 mg PO TID 05/07/17 [History] Furosemide [Lasix] 20 mg PO DAILY tablet 05/12/17 [Rx] Spironolactone [Aldactone] 25 mg PO DAILY tablet 05/13/17 [Rx] Divalproex Sodium [Depakote ER] 250 mg PO BID 08/13/17 [History] traMADol [Ultram] 50 mg PO BEDTIME 08/13/17 [History] Forms: ED Department Discharge Referrals: PCP,None [Primary Care Provider] - - Discharge Summary/Plan Comment Discharge Summary/Plan Comment: Assessment/Plan: #1. Syncope. The etiology of this is unknown. She has responded been doing very well at present time and will be stable to be discharged home. The etiology of the syncope again is unknown as she has done this before. #2. Fibromyalgia. #3. Hypothyroidism. #4. History of depression. #5. Atherosclerotic heart disease, chronic. #6. Status post CVA with aphas, partial. #7. Chronic renal failure. She is medically stable presently. Her blood pressure this morning was 150/48 with a pulse of 70 and temperature 95.9. Respirations were 17 and oxygen saturation 98%. There are no new laboratory analysis yesterday the white count was 7.8 hemoglobin 12.7 sodium 132 potassium 4.4 BUN was 12 and creatinine is 1 with an EGFR of 32.79. Her liver functions are unremarkable total protein is slightly low but not diagnostic of any significant problem. I feel she is medically stable to be discharged. - General Info Date of Service: 04/04/18 Subjective Update: She is medically alert the present time as she was before with no schedule. Functional Status: Reports: Pain Controlled - Review of Systems General: Reports: No Symptoms HEENT: Reports: No Symptoms Pulmonary: Reports: No Symptoms Cardiovascular: Reports: No Symptoms Gastrointestinal: Reports: No Symptoms Genitourinary: Reports: No Symptoms Musculoskeletal: Reports: No Symptoms Skin: Reports: No Symptoms Neurological: Reports: No Symptoms Psychiatric: Reports: No Symptoms - Patient Data Vitals - Most Recent: Last Vital Signs Temp 95.9 F 03/28/18 08:00 Pulse 70 03/28/18 08:00 Resp 17 03/28/18 08:00 BP 150/48 H 03/28/18 08:00 Pulse Ox 98 03/28/18 08:00 Weight - Most Recent: 145 lb 1.6 oz I&O - Last 24 hours: Intake & Output 03/27/18 03/28/18 03/28/18 22:59 06:59 14:59 Intake Total 120 360 Output Total 300 Balance -180 360 Lab Results - Last 24 hrs: Laboratory Results - last 24 hr 03/27/18 03/27/18 03/27/18 Range/Units 15:00 15:00 18:14 WBC 7.8 (4.5-11.0) K/uL RBC 3.96 (3.30-5.50) M/uL Hgb 12.7 (12.0-15.0) g/dL Hct 37.2 (36.0-48.0) % MCV 94 (80-98) fL MCH 32 H (27-31) pg MCHC 34 (32-36) % Plt Count 265 (150-400) K/uL Neut % (Auto) 57 (36-66) % Lymph % (Auto) 30 (24-44) % [place] % (Auto) 11 H (2-6) % Eos % (Auto) 2 (2-4) % Baso % (Auto) 1 (0-1) % Sodium 132 L (140-148) mmol/L Potassium 4.4 (3.6-5.2) mmol/L Chloride 98 L (100-108) mmol/L Carbon Dioxide 31 (21-32) mmol/L Anion Gap 7.4 (5.0-14.0) mmol/L BUN 12 (7-18) mg/dL Creatinine 1.0 (0.6-1.0) mg/dL Est Cr Clr Drug Dosing 32.79 mL/min Estimated GFR (MDRD) 52 L (>60) Glucose 106 (74-106) mg/dL Calcium 8.4 L (8.5-10.1) mg/dL Total Bilirubin 0.3 (0.2-1.0) mg/dL AST 16 (15-37) U/L ALT 18 (12-78) U/L Alkaline Phosphatase 89 (46-116) U/L Total Protein 6.3 L (6.4-8.2) g/dL Albumin 3.2 L (3.4-5.0) g/dL Globulin 3.1 (2.3-3.5) g/dL Albumin/Globulin Ratio 1.0 L (1.2-2.2) Urine Opiates Screen Negative (NEGATIVE) Ur Oxycodone Screen Negative (NEGATIVE) Urine Methadone Screen Negative (NEGATIVE) Ur Propoxyphene Screen Negative (NEGATIVE) Ur Barbiturates Screen Negative (NEGATIVE) Ur Tricyclics Screen Negative (NEGATIVE) Ur Phencyclidine Scrn Negative (NEGATIVE) Ur Amphetamine Screen Negative (NEGATIVE) U Methamphetamines Scrn Negative (NEGATIVE) Urine MDMA Screen Negative (NEGATIVE) U Benzodiazepines Scrn Presumptive positive H (NEGATIVE) U Cocaine Metab Screen Negative (NEGATIVE) U Marijuana (THC) Screen Negative (NEGATIVE) Med Orders - Current: Current Medications Divalproex Sodium (Depakote Er) 250 mg PO BID [facility] Last Admin: 03/28/18 08:11 Dose: 250 mg Furosemide (Lasix) 20 mg PO DAILY [facility] Last Admin: 03/28/18 08:11 Dose: 20 mg Levothyroxine Sodium (Synthroid) 88 mcg PO ACBREAKFAST [facility] Last Admin: 03/28/18 08:10 Dose: 88 mcg Multivitamins/Minerals (Thera M Plus) 1 tab PO DAILY [facility] Last Admin: 03/28/18 08:12 Dose: 1 tab Pantoprazole Sodium (Protonix) 40 mg PO ACBREAKFAST [facility] Last Admin: 03/28/18 08:10 Dose: 40 mg Spironolactone (Aldactone) 25 mg PO DAILY [facility] Last Admin: 03/28/18 08:11 Dose: 25 mg Venlafaxine HCl (Effexor Xr) 75 mg PO BID [facility] Last Admin: 03/28/18 08:11 Dose: 75 mg - Exam General: Reports: Alert, Oriented HEENT: Reports: Pupils Equal, Pupils Reactive, EOMI, Mucous Membr. Moist/[place] Neck: Reports: Supple Lungs: Reports: Clear to Auscultation, Normal Respiratory Effort Cardiovascular: Reports: Regular Rate, Regular Rhythm GI/Abdominal Exam: Normal Bowel Sounds, Soft, Non-Tender, No Organomegaly, No Distention, No Abnormal Bruit, No Mass, Pelvis Stable Extremities: Normal Inspection (extended), Normal Range of Motion, Non-Tender, No Pedal Edema, Normal Capillary Refill Neurological: Reports: No New Focal Deficit Psy/Mental Status: Reports: Alert, Normal Affect, Normal Mood
--- NOTE | 2018-03-28 10:28 | PCM.PN ---
- General Info Date of Service: 03/28/18 Subjective Update: She is mentally alert at present time with no residual. She does have neuro deficits from his previous cerebrovascular accident years ago but is stable at the present time. Functional Status: Reports: Pain Controlled - Review of Systems General: Reports: No Symptoms HEENT: Reports: No Symptoms Pulmonary: Reports: No Symptoms Cardiovascular: Reports: No Symptoms Gastrointestinal: Reports: No Symptoms Musculoskeletal: Reports: No Symptoms Skin: Reports: No Symptoms Neurological: Reports: No Symptoms Psychiatric: Reports: No Symptoms - Patient Data Vitals - Most Recent: Last Vital Signs Temp 95.9 F 03/28/18 08:00 Pulse 70 03/28/18 08:00 Resp 17 03/28/18 08:00 BP 150/48 H 03/28/18 08:00 Pulse Ox 98 03/28/18 08:00 Weight - Most Recent: 145 lb 1.6 oz I&O - Last 24 Hours: Intake & Output 03/27/18 03/28/18 03/28/18 22:59 06:59 14:59 Intake Total 120 360 Output Total 300 Balance -180 360 Lab Results Last 24 Hours: Laboratory Results - last 24 hr 03/27/18 03/27/18 03/27/18 Range/Units 15:00 15:00 18:14 WBC 7.8 (4.5-11.0) K/uL RBC 3.96 (3.30-5.50) M/uL Hgb 12.7 (12.0-15.0) g/dL Hct 37.2 (36.0-48.0) % MCV 94 (80-98) fL MCH 32 H (27-31) pg MCHC 34 (32-36) % Plt Count 265 (150-400) K/uL Neut % (Auto) 57 (36-66) % Lymph % (Auto) 30 (24-44) % [place] % (Auto) 11 H (2-6) % Eos % (Auto) 2 (2-4) % Baso % (Auto) 1 (0-1) % Sodium 132 L (140-148) mmol/L Potassium 4.4 (3.6-5.2) mmol/L Chloride 98 L (100-108) mmol/L Carbon Dioxide 31 (21-32) mmol/L Anion Gap 7.4 (5.0-14.0) mmol/L BUN 12 (7-18) mg/dL Creatinine 1.0 (0.6-1.0) mg/dL Est Cr Clr Drug Dosing 32.79 mL/min Estimated GFR (MDRD) 52 L (>60) Glucose 106 (74-106) mg/dL Calcium 8.4 L (8.5-10.1) mg/dL Total Bilirubin 0.3 (0.2-1.0) mg/dL AST 16 (15-37) U/L ALT 18 (12-78) U/L Alkaline Phosphatase 89 (46-116) U/L Total Protein 6.3 L (6.4-8.2) g/dL Albumin 3.2 L (3.4-5.0) g/dL Globulin 3.1 (2.3-3.5) g/dL Albumin/Globulin Ratio 1.0 L (1.2-2.2) Urine Opiates Screen Negative (NEGATIVE) Ur Oxycodone Screen Negative (NEGATIVE) Urine Methadone Screen Negative (NEGATIVE) Ur Propoxyphene Screen Negative (NEGATIVE) Ur Barbiturates Screen Negative (NEGATIVE) Ur Tricyclics Screen Negative (NEGATIVE) Ur Phencyclidine Scrn Negative (NEGATIVE) Ur Amphetamine Screen Negative (NEGATIVE) U Methamphetamines Scrn Negative (NEGATIVE) Urine MDMA Screen Negative (NEGATIVE) U Benzodiazepines Scrn Presumptive positive H (NEGATIVE) U Cocaine Metab Screen Negative (NEGATIVE) U Marijuana (THC) Screen Negative (NEGATIVE) Med Orders - Current: Current Medications Divalproex Sodium (Depakote Er) 250 mg PO BID [facility] Last Admin: 03/28/18 08:11 Dose: 250 mg Furosemide (Lasix) 20 mg PO DAILY [facility] Last Admin: 03/28/18 08:11 Dose: 20 mg Levothyroxine Sodium (Synthroid) 88 mcg PO ACBREAKFAST [facility] Last Admin: 03/28/18 08:10 Dose: 88 mcg Multivitamins/Minerals (Thera M Plus) 1 tab PO DAILY [facility] Last Admin: 03/28/18 08:12 Dose: 1 tab Pantoprazole Sodium (Protonix) 40 mg PO ACBREAKFAST [facility] Last Admin: 03/28/18 08:10 Dose: 40 mg Spironolactone (Aldactone) 25 mg PO DAILY [facility] Last Admin: 03/28/18 08:11 Dose: 25 mg Venlafaxine HCl (Effexor Xr) 75 mg PO BID [facility] Last Admin: 03/28/18 08:11 Dose: 75 mg - Exam General: Alert, Oriented HEENT: Pupils Equal, Pupils Reactive, EOMI, Mucous Membr. Moist/[place] Neck: Supple Lungs: Clear to Auscultation Cardiovascular: Regular Rhythm GI/Abdominal Exam: Normal Bowel Sounds Back Exam: Normal Inspection, Full Range of Motion Extremities: Normal Inspection, Normal Range of Motion, Non-Tender, No Pedal Edema, Normal Capillary Refill Peripheral Pulses: 1+: Radial (L), Radial (R) Skin: Warm, Dry, Intact Neurological: No New Focal Deficit Psy/Mental Status: Alert, Normal Affect, Normal Mood, Other (She is normal as she has been before even know she has the symptoms of the cerebrovascular accident with speech difficulties.) - Problem List Review Problem List Initiated/Reviewed/Updated: Yes - My Orders Last 24 Hours: My Active Orders 03/27/18 14:46 Patient Status [ADT] Routine Bedrest Bedside Commode [RC] ASDIRECTED Height and Weight [RC] DAILY Oxygen Therapy [RC] PRN VTE/DVT Education [RC] Per Unit Routine Vital Signs [RC] Q4H Resuscitation Status Routine 03/27/18 14:53 Intake and Output [RC] QSHIFT 03/27/18 14:54 Antiembolic Hose [OM.PC] Per Unit Routine Sequential Compression Device [OM.PC] Per Unit Routine 03/27/18 18:14 DRUG SCREEN, URINE [URCHEM] Stat 03/27/18 21:00 Divalproex Sodium [Depakote ER] 250 mg PO BID Venlafaxine [Effexor XR] 75 mg PO BID 03/27/18 Dinner Regular Diet [DIET] 03/28/18 00:07 CULTURE URINE [RM] Routine 03/28/18 07:30 Levothyroxine [Synthroid] 88 mcg PO ACBREAKFAST Pantoprazole [ProTONIX] 40 mg PO ACBREAKFAST 03/28/18 09:00 Furosemide [Lasix] 20 mg PO DAILY Multivitamins w-Iron/Ca/FA/Min [Thera M Plus] 1 tab PO DAILY Spironolactone [Aldactone] 25 mg PO DAILY 03/28/18 10:27 Ready for Discharge [RC] PER UNIT ROUTINE - Plan Plan:: Assessment/Plan: #1. Syncope. The etiology of this is unknown. She has responded been doing very well at present time and will be stable to be discharged home. The etiology of the syncope again is unknown as she has done this before. #2. Fibromyalgia. #3. Hypothyroidism. #4. History of depression. #5. Atherosclerotic heart disease, chronic. #6. Status post CVA with aphas, partial. #7. Chronic renal failure. She is medically stable presently. Her blood pressure this morning was 150/48 with a pulse of 70 and temperature 95.9. Respirations were 17 and oxygen saturation 98%. There are no new laboratory analysis yesterday the white count was 7.8 hemoglobin 12.7 sodium 132 potassium 4.4 BUN was 12 and creatinine is 1 with an EGFR of 32.79. Her liver functions are unremarkable total protein is slightly low but not diagnostic of any significant problem. I feel she is medically stable to be discharged.
== END 2018-03-28 11:47 | disposition home or self-care (01) | DRG 312 ==
LOC: JP.ED 12:03 → JP.ICU 14:46
PROVIDERS: ADMIT Internal Medicine; ATTEND Internal Medicine
DX: R55 Syncope and collapse (principal); R41.82 Altered mental status, unspecified; F32.9 Major depressive disorder, single episode, unspecified; I10 Essential (primary) hypertension; I25.10 Atherosclerotic heart disease of native coronary artery without angina pectoris; I12.9 Hypertensive chronic kidney disease with stage 1 through stage 4 chronic kidney disease, or unspecified chronic kidney disease; N18.9 Chronic kidney disease, unspecified; I69.320 Aphasia following cerebral infarction; G89.29 Other chronic pain; M54.9 Dorsalgia, unspecified; M79.7 Fibromyalgia; E03.9 Hypothyroidism, unspecified; H91.90 Unspecified hearing loss, unspecified ear; H54.7 Unspecified visual loss; Z85.3 Personal history of malignant neoplasm of breast; Z88.5 Allergy status to narcotic agent; Z88.2 Allergy status to sulfonamides; Z88.8 Allergy status to other drugs, medicaments and biological substances; Z95.1 Presence of aortocoronary bypass graft; Z95.5 Presence of coronary angioplasty implant and graft; Z87.442 Personal history of urinary calculi; Z86.73 Personal history of transient ischemic attack (TIA), and cerebral infarction without residual deficits; Z88.6 Allergy status to analgesic agent; Z88.1 Allergy status to other antibiotic agents; Z91.040 Latex allergy status; Z79.899 Other long term (current) drug therapy; R53.83 Other fatigue; Z85.820 Personal history of malignant melanoma of skin; Z90.49 Acquired absence of other specified parts of digestive tract; Z90.11 Acquired absence of right breast and nipple; Z96.659 Presence of unspecified artificial knee joint
CPT/HCPCS: 36415; 80053; 80305; 85025; 87086; 99283; 99285; A9270-GY

== ENCOUNTER → 2019-01-06 | Outpatient (CLI) | payer MEDICARE ==
--- NOTE | 2019-01-06 11:07 | CT ---
Head wo Cont CLINICAL HISTORY: Head trauma COMPARISON: 2018 TECHNIQUE: Transverse scans were obtained from the base of the skull through the vertex without IV contrast on a multislice, multidetector CT scanner. Auto dosage reduction and iterative reconstruction techniques employed. FINDINGS: Patient is a large area of encephalomalacia involving the left parietal lobe. The there appears to been a previous craniotomy area patient has a left upper calvarial scalp hematoma.. There is no mass effect, hemorrhage, or extraaxial collection. The basal cisterns and sulci over the convexities are prominent. The ventricles are mildly prominent. IMPRESSION: Left scalp hematoma Previous left craniotomy Large area of encephalomalacia in the left parietal lobe similar to prior study No evidence of intracranial hemorrhage
== END ==
LOC: JP.CT 10:42
PROVIDERS: ATTEND Internal Medicine
DX: S09.90XA Unspecified injury of head, initial encounter (principal); G93.89 Other specified disorders of brain; Z98.890 Other specified postprocedural states
CPT/HCPCS: 70450; 70450-26

== ENCOUNTER 2019-01-08 20:37 | Inpatient (IN) | payer MEDICARE ==
--- NOTE | 2019-01-08 21:40 | EDM.PDOC ---
ED HPI GENERAL MEDICAL PROBLEM - General Chief Complaint: Chest Pain Stated Complaint: CHEST PAIN Time Seen by Provider: 01/08/19 21:15 - History of Present Illness INITIAL COMMENTS - FREE TEXT/NARRATIVE: 88-year-old female has been having increased generalized weakness for about the last week. She did take a fall 2 days ago and hit her head and underwent a CT scan of the head which was normal. Today she was complaining of some discomfort on the left side of the chest and into the left arm. This is made worse with movement with pain level 2/10. She has a history of cardiovascular disease and is status post CABG and stents. 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 She also has developed some seizures as a result of her CVA. She has a history of hypertension and breast cancer. Chest Pain Score (Numeric/FACES): 8 - Related Data Allergies Allergy/AdvReac Type Severity Reaction Status Date / Time ciprofloxacin HCl Allergy Rash Verified 01/08/19 20:39 [From Cipro] Latex, Natural Rubber Allergy Cannot Verified 01/08/19 20:39 Remember levofloxacin Allergy Rash Verified 01/08/19 20:39 Sulfa (Sulfonamide Allergy Rash Verified 01/08/19 20:39 Antibiotics) tramadol Allergy Confusion Verified 01/08/19 20:39 diazepam AdvReac Change Verified 01/08/19 20:39 Mental Status fentanyl AdvReac Change Verified 01/08/19 20:39 Mental Status hydrocodone [Hydrocodone] AdvReac Change Verified 01/08/19 20:39 Mental Status hydrocodone bitartrate AdvReac Change Verified 01/08/19 20:39 [From Lorcet 10/650] Mental Status hydromorphone HCl AdvReac Change Verified 01/08/19 20:39 [From Dilaudid] Mental Status morphine AdvReac Change Verified 01/08/19 20:39 Mental Status pregabalin [From Lyrica] AdvReac Change Verified 01/08/19 20:39 Mental Status Home Meds: Home Meds Levothyroxine [Synthroid] 88 mcg PO DAILY 05/28/13 [History] ALPRAZolam [Xanax] 1 mg PO BID 05/29/13 [History] Pantoprazole Sodium [Protonix] 40 mg PO DAILY 02/28/15 [History] Venlafaxine HCl [Venlafaxine ER] 75 mg PO BID 03/03/16 [History] Acetaminophen 650 mg PO BID PRN 12/30/16 [History] Acetaminophen [Tylenol] 325 mg PO TID 05/07/17 [History] Furosemide [Lasix] 20 mg PO DAILY tablet 05/12/17 [Rx] Spironolactone [Aldactone] 25 mg PO DAILY tablet 05/13/17 [Rx] Past Medical History HEENT History: Reports: Cataract, Hard of Hearing, Impaired Vision Other HEENT History: removed remnants of tonsils. Cardiovascular History: Reports: Bypass, CAD, Hypertension, Stents Other Cardiovascular History: cabg Respiratory History: Reports: Other (See Below) Other Respiratory History: pleural effusion this hospital stay, recent cough lasting over a month Genitourinary History: Reports: Renal Calculus Musculoskeletal History: Reports: Back Pain, Chronic, Fibromyalgia, Other (See Below) Other Musculoskeletal History: bilat wrist pain Neurological History: Reports: CVA, Seizure, TIA, Other (See Below) Other Neuro History: CVA affecting Rt side per family Psychiatric History: Reports: Depression, Suicide Attempt, Suicidal Ideation Endocrine/Metabolic History: Reports: Hypothyroidism Hematologic History: Reports: Anemia, Blood Transfusion(s) Oncologic (Cancer) History: Reports: Basal Cell Carcinoma, Breast Other Oncologic History: Melanoma Dermatologic History: Reports: Melanoma Other Dermatologic History: healing wound to left forehead from a melanoma removal - Infectious Disease History Infectious Disease History: Reports: Chicken Pox, Measles, Mumps - Past Surgical History Cardiovascular Surgical History: Reports: Coronary Artery Bypass Respiratory Surgical History: Reports: Thoracentesis GI Surgical History: Reports: Cholecystectomy, Hernia, Inguinal Female Surgical History: Reports: Mastectomy, Other (See Below) Other Female Surgeries/Procedures: breast ca and mastectomy Rt side Musculoskeletal Surgical History: Reports: Knee Replacement Oncologic Surgical History: Reports: Mastectomy, Other (See Below) Other Oncologic Surgeries/Procedures: Rt side Social & Family History - Family History Family Medical History: Noncontributory HEENT: Reports: None : Reports: Other (See Below) Other Family History: son, kidney transplant Oncologic: Reports: Pancreatic, Other (See Below) Other Oncologic Family History: son from pancreatic ca - Tobacco Use Smoking Status *Q: Never Smoker - Caffeine Use Caffeine Use: Reports: Coffee Other Caffeine Use: 2-3 cups per day - Recreational Drug Use Recreational Drug Use: No ED ROS GENERAL - Review of Systems Review Of Systems: See Below Constitutional: Reports: Weakness, Fatigue. Denies: Fever, Chills HEENT: Reports: No Symptoms Respiratory: Denies: Shortness of Breath, Pleuritic Chest Pain, Cough Cardiovascular: Reports: Chest Pain. Denies: Lightheadedness, Palpitations GI/Abdominal: Reports: No Symptoms : Reports: No Symptoms Musculoskeletal: Reports: Other (History of fibromyalgia and arthritis.) Neurological: Reports: Pre-Existing Deficit. Denies: Trouble Speaking ED EXAM, GENERAL - Physical Exam Exam: See Below Exam Limited By: No Limitations General Appearance: Alert Eye Exam: Bilateral Eye: PERRL Ear Exam: Bilateral Ear: Canal Normal, TM normal, Discharge Nose: Normal Inspection Throat/Mouth: Normal Inspection Head: Normocephalic Neck: Supple, Non-Tender Respiratory/Chest: No Respiratory Distress, Lungs Clear, Normal Breath Sounds, Other (chest has tenderness to the anterior left and some pain exacerbation with movement of the chest and left arm.) (Female) Exam: Other (No flank tenderness.) Course - Vital Signs Last Recorded V/S: Last Vital Signs Temp 36.2 C 01/08/19 20:47 Pulse 85 01/08/19 20:47 Resp 14 01/08/19 20:47 BP 147/66 H 01/08/19 20:47 Pulse Ox 97 01/08/19 20:47 - Orders/Labs/Meds Orders: Active Orders 24 hr Category Date Time Status EKG Documentation Completion [RC] ASDIRECTED Care 01/08/19 21:25 Active Chest 1V Frontal [CR] Urgent Exams 01/08/19 21:25 Taken LACTIC ACID [CHEM] Urgent Lab 01/08/19 21:25 Received UA W/MICROSCOPIC [URIN] Urgent Lab 01/08/19 21:25 Ordered EKG 12 Lead [EK] Stat Ther 01/08/19 21:25 Ordered Labs: Laboratory Tests 01/08/19 01/08/19 Range/Units 21:25 21:25 WBC 7.9 (4.5-11.0) K/uL RBC 3.96 (3.30-5.50) M/uL Hgb 12.0 (12.0-15.0) g/dL Hct 37.8 (36.0-48.0) % MCV 96 (80-98) fL MCH 30 (27-31) pg MCHC 32 (32-36) % Plt Count 258 (150-400) K/uL Neut % (Auto) 64 (36-66) % Lymph % (Auto) 21 L (24-44) % [place] % (Auto) 11 H (2-6) % Eos % (Auto) 3 (2-4) % Baso % (Auto) 1 (0-1) % Sodium 138 L (140-148) mmol/L Potassium 4.2 (3.6-5.2) mmol/L Chloride 101 (100-108) mmol/L Carbon Dioxide 30 (21-32) mmol/L Anion Gap 11.2 (5.0-14.0) mmol/L BUN 21 H D (7-18) mg/dL Creatinine 0.8 (0.6-1.0) mg/dL Est Cr Clr Drug Dosing 34.91 mL/min Estimated GFR (MDRD) > 60 (>60) Glucose 105 (74-106) mg/dL Calcium 8.5 (8.5-10.1) mg/dL Magnesium 1.3 L (1.8-2.4) mg/dL Total Bilirubin 0.2 (0.2-1.0) mg/dL AST 18 (15-37) U/L ALT 19 (12-78) U/L Alkaline Phosphatase 122 H (46-116) U/L Troponin I 0.174 H* (0.000-0.056) ng/mL Total Protein 6.5 (6.4-8.2) g/dL Albumin 3.1 L (3.4-5.0) g/dL Globulin 3.4 (2.3-3.5) g/dL Albumin/Globulin Ratio 0.9 L (1.2-2.2) Departure - Departure Time of Disposition: 23:00 Disposition: Admitted As Inpatient 66 Condition: Serious Clinical Impression: Acute coronary syndrome Referrals: Michael Gomez Sr, MD [Primary Care Provider] - Forms: ED Department Discharge Additional Instructions: Dr. Gomez is her primary provider will see this patient in the emergency room for admission. - My Orders Last 24 Hours: My Active Orders 01/08/19 21:25 EKG Documentation Completion [RC] ASDIRECTED Chest 1V Frontal [CR] Urgent LACTIC ACID [CHEM] Urgent UA W/MICROSCOPIC [URIN] Urgent EKG 12 Lead [EK] Stat - Assessment/Plan Last 24 Hours: My Active Orders 01/08/19 21:25 EKG Documentation Completion [RC] ASDIRECTED Chest 1V Frontal [CR] Urgent LACTIC ACID [CHEM] Urgent UA W/MICROSCOPIC [URIN] Urgent EKG 12 Lead [EK] Stat
--- NOTE | 2019-01-08 22:57 | CRLCR ---
HISTORY: Weakness COMPARISON: 08/13/2017 FINDINGS: A portable erect AP view of the chest was obtained at 21 59 hours. There is moderate consolidation of the left lung base, with loss of the left hemidiaphragm, not as prominent as the consolidation seen on the previous study which involves more of the rest of the lower lobe. Small left pleural effusion, similar in size to the previous study. The rest of the chest is clear. There is fullness of the main pulmonary vessels suggesting mild volume overload without congestive failure. The heart remains normal in size. There are sternal wires from median sternotomy. The mediastinum is otherwise normal in appearance. The osseous structures are normal in appearance for the patient`s age. IMPRESSION: Moderate consolidation of the left lung base, less prominent than seen on the previous study. Small left pleural effusion, similar to that seen on the previous study. Dictated by Rey Fan MD @ Jan 08 2019 10:54PM Signed by Dr. Rey Fan @ Jan 08 2019 10:56PM
[2019-01-08] MEDS ORDERED: Sodium Chloride 0.9% 10 ML Syringe FLUSH PRN (23:29)
--- NOTE | 2019-01-08 23:47 | PCM.HP ---
H&P History of Present Illness - General Date of Service: 01/08/19 Admit Problem/Dx: Admission Diagnosis/Problem Admission Diagnosis/Problem Head injury without concussion or intracranial hemorrhage Source of Information: Patient, Family - History of Present Illness Initial Comments - Free Text/Narative: She fell 2 days ago hitting her head. A CT was done which showed a hematoma on the left lateral scalp. Now has difficultly thinking and unable to walk with increased problem moving her right side. There is also a change in her speech. She does have a history of a CVA post CABS in 2001. Neuro evaluation has deteriorated since the fall. Onset of Symptoms: Reports: Today, Gradual Location: Reports: Generalized Improves with: Reports: None Associated Symptoms: Reports: Weakness Chest Pain Score (Numeric/FACES): 8 Generalized Pain Score (Numeric/FACES): 4 - Related Data Allergies/Adverse Reactions: Allergies Allergy/AdvReac Type Severity Reaction Status Date / Time ciprofloxacin HCl Allergy Rash Verified 01/08/19 20:39 [From Cipro] Latex, Natural Rubber Allergy Cannot Verified 01/08/19 20:39 Remember levofloxacin Allergy Rash Verified 01/08/19 20:39 Sulfa (Sulfonamide Allergy Rash Verified 01/08/19 20:39 Antibiotics) tramadol Allergy Confusion Verified 01/08/19 20:39 diazepam AdvReac Change Verified 01/08/19 20:39 Mental Status fentanyl AdvReac Change Verified 01/08/19 20:39 Mental Status hydrocodone [Hydrocodone] AdvReac Change Verified 01/08/19 20:39 Mental Status hydrocodone bitartrate AdvReac Change Verified 01/08/19 20:39 [From Lorcet 10/650] Mental Status hydromorphone HCl AdvReac Change Verified 01/08/19 20:39 [From Dilaudid] Mental Status morphine AdvReac Change Verified 01/08/19 20:39 Mental Status pregabalin [From Lyrica] AdvReac Change Verified 01/08/19 20:39 Mental Status Home Medications: Home Meds Levothyroxine [Synthroid] 88 mcg PO DAILY 05/28/13 [History] ALPRAZolam [Xanax] 1 mg PO BID 05/29/13 [History] Pantoprazole Sodium [Protonix] 40 mg PO DAILY 02/28/15 [History] Acetaminophen 650 mg PO BID PRN 12/30/16 [History] Acetaminophen [Tylenol] 325 mg PO TID 05/07/17 [History] Furosemide [Lasix] 20 mg PO DAILY tablet 05/12/17 [Rx] Spironolactone [Aldactone] 25 mg PO DAILY tablet 05/13/17 [Rx] Venlafaxine HCl [Venlafaxine ER] 225 mg PO DAILY 01/09/19 [History] Past Medical History HEENT History: Reports: Cataract, Hard of Hearing, Impaired Vision Other HEENT History: removed remnants of tonsils. Cardiovascular History: Reports: Bypass, CAD, Hypertension, Stents Other Cardiovascular History: cabg Respiratory History: Reports: Other (See Below) Other Respiratory History: pleural effusion this hospital stay, recent cough lasting over a month Genitourinary History: Reports: Renal Calculus Musculoskeletal History: Reports: Back Pain, Chronic, Fibromyalgia, Other (See Below) Other Musculoskeletal History: bilat wrist pain Neurological History: Reports: CVA, Seizure, TIA, Other (See Below) Other Neuro History: CVA affecting Rt side per family Psychiatric History: Reports: Depression, Suicide Attempt, Suicidal Ideation Endocrine/Metabolic History: Reports: Hypothyroidism Hematologic History: Reports: Anemia, Blood Transfusion(s) Oncologic (Cancer) History: Reports: Basal Cell Carcinoma, Breast Other Oncologic History: Melanoma Dermatologic History: Reports: Melanoma Other Dermatologic History: healing wound to left forehead from a melanoma removal - Infectious Disease History Infectious Disease History: Reports: Chicken Pox, Measles, Mumps - Past Surgical History Cardiovascular Surgical History: Reports: Coronary Artery Bypass Respiratory Surgical History: Reports: Thoracentesis GI Surgical History: Reports: Cholecystectomy, Hernia, Inguinal Female Surgical History: Reports: Mastectomy, Other (See Below) Other Female Surgeries/Procedures: breast ca and mastectomy Rt side Musculoskeletal Surgical History: Reports: Knee Replacement Oncologic Surgical History: Reports: Mastectomy, Other (See Below) Other Oncologic Surgeries/Procedures: Rt side Social & Family History - Family History Family Medical History: Noncontributory HEENT: Reports: None : Reports: Other (See Below) Other Family History: son, kidney transplant Oncologic: Reports: Pancreatic, Other (See Below) Other Oncologic Family History: son from pancreatic ca - Tobacco Use Smoking Status *Q: Never Smoker - Caffeine Use Caffeine Use: Reports: Coffee Other Caffeine Use: 2-3 cups per day - Recreational Drug Use Recreational Drug Use: No H&P Review of Systems - Review of Systems: Review Of Systems: See Below General: Reports: Weakness, Decreased Appetite HEENT: Reports: Headaches Pulmonary: Reports: Shortness of Breath Cardiovascular: Reports: Chest Pain Gastrointestinal: Reports: Decreased Appetite, Other (heavy type chest pain relieved with NTG) Genitourinary: Reports: No Symptoms Musculoskeletal: Reports: Joint Pain, Muscle Pain Skin: Reports: No Symptoms Psychiatric: Reports: Depression, Anxiety Neurological: Reports: Trouble Speaking, Difficulty Walking, Weakness, Change in Speech, Gait Disturbance Exam - Exam Exam: See Below - Vital Signs Vital Signs: Last Vital Signs Temp 97.1 F 01/08/19 20:47 Pulse 85 01/08/19 20:47 Resp 14 01/08/19 20:47 BP 147/66 H 01/08/19 20:47 Pulse Ox 97 01/08/19 20:47 Weight: 140 lb - Exam General: Oriented, Cooperative, Mild Distress HEENT: PERRLA, Hearing Intact, Mucosa Moist & [place], Nares Patent, Normal Nasal Septum, Posterior Pharynx Clear, Conjunctiva Clear, EOMI, EACs Clear, TMs Clear Neck: Supple, Trachea Midline, 2 Lungs: Clear to Auscultation, Normal Respiratory Effort Cardiovascular: Regular Rate, Regular Rhythm GI/Abdominal Exam: Normal Bowel Sounds, Soft, Non-Tender, No Organomegaly, No Distention, No Abnormal Bruit, No Mass, Pelvis Stable Back Exam: Normal Inspection, Full Range of Motion, NT Peripheral Pulses: 1+: Radial (L), Radial (R) Skin: Warm, Dry, Intact Neuro Extensive - Mental Status: Other (decreased DTR on the right (side of previous CVA) Neuro Extensive - Motor, Sensory, Reflexes: Ataxia DTR: 0: Patella (R), 1+: Patella (L) Psychiatric: Anxious, Depressed - Patient Data Lab Results Last 24 hrs: Laboratory Results - last 24 hr 01/08/19 01/08/19 01/08/19 Range/Units 21:25 21:25 21:25 WBC 7.9 (4.5-11.0) K/uL RBC 3.96 (3.30-5.50) M/uL Hgb 12.0 (12.0-15.0) g/dL Hct 37.8 (36.0-48.0) % MCV 96 (80-98) fL MCH 30 (27-31) pg MCHC 32 (32-36) % Plt Count 258 (150-400) K/uL Neut % (Auto) 64 (36-66) % Lymph % (Auto) 21 L (24-44) % [place] % (Auto) 11 H (2-6) % Eos % (Auto) 3 (2-4) % Baso % (Auto) 1 (0-1) % Sodium 138 L (140-148) mmol/L Potassium 4.2 (3.6-5.2) mmol/L Chloride 101 (100-108) mmol/L Carbon Dioxide 30 (21-32) mmol/L Anion Gap 11.2 (5.0-14.0) mmol/L BUN 21 H D (7-18) mg/dL Creatinine 0.8 (0.6-1.0) mg/dL Est Cr Clr Drug Dosing 34.91 mL/min Estimated GFR (MDRD) > 60 (>60) Glucose 105 (74-106) mg/dL Lactic Acid 0.9 (0.4-2.0) mmol/L Calcium 8.5 (8.5-10.1) mg/dL Magnesium 1.3 L (1.8-2.4) mg/dL Total Bilirubin 0.2 (0.2-1.0) mg/dL AST 18 (15-37) U/L ALT 19 (12-78) U/L Alkaline Phosphatase 122 H (46-116) U/L Troponin I 0.174 H* (0.000-0.056) ng/mL Total Protein 6.5 (6.4-8.2) g/dL Albumin 3.1 L (3.4-5.0) g/dL Globulin 3.4 (2.3-3.5) g/dL Albumin/Globulin Ratio 0.9 L (1.2-2.2) Result Diagrams: 01/08/19 21:25 01/08/19 21:25 Problem List Initiated/Reviewed/Updated: Yes Orders Last 24hrs: Active Orders 24 hr Category Date Time Status Patient Status [ADT] Routine ADT 01/08/19 23:29 Ordered EKG Documentation Completion [RC] ASDIRECTED Care 01/08/19 21:25 Active Height and Weight [RC] UPON Care 01/08/19 23:29 Ordered Intake and Output [RC] QSHIFT Care 01/08/19 23:33 Ordered Oxygen Therapy [RC] PRN Care 01/08/19 23:29 Ordered Up With Assistance [RC] ASDIRECTED Care 01/08/19 23:29 Ordered VTE/DVT Education [RC] Per Unit Routine Care 01/08/19 23:29 Ordered Vital Signs [RC] Q4H Care 01/08/19 23:29 Ordered Regular Diet [DIET] Diet 01/09/19 Breakfast Ordered Head w wo Cont [CT] Stat Exams 01/08/19 23:40 Ordered CK W CKMB [CHEM] Stat Lab 01/08/19 23:39 Ordered CK W CKMB [CHEM] Timed Lab 01/08/19 23:29 Ordered TROPONIN I [CHEM] Timed Lab 01/08/19 23:29 Ordered UA W/MICROSCOPIC [URIN] Urgent Lab 01/08/19 21:25 Ordered Sodium Chloride 0.9% [Saline Flush] Med 01/08/19 23:29 Ordered 10 ml FLUSH ASDIRECTED PRN Saline Lock Insert [OM.PC] Routine Oth 01/08/19 23:29 Ordered Resuscitation Status Routine Resus Stat 01/08/19 23:29 Ordered EKG 12 Lead [EK] Stat Ther 01/08/19 21:25 Ordered Medication Orders Sodium Chloride (Saline Flush) 10 ml FLUSH ASDIRECTED PRN PRN Reason: Keep Vein Open Assessment/Plan Comment:: Assessment/Plan #1. Recent head injury without LOC. She has a mental, speech ambulation change in the last 24 hrs. #2. Angina: There is elevation of Trop. without EKG change #3. ASHD She has a history of CABS and angiograms showing arthrosclerosis. #4. 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 #5. History of seizures. Continue with Divalproex 250 mg twice daily #6. Hypothyroidism Continue with Levothyroxine 88mcg/day #7. CRF #8. Depression: Continue with Venlafaxine 75 mg daily #9. Anxiety: Continue with Xanax prn. #10 GERD: Continue with Pantoprazole 40 mg daily. #11. Fibromyalgia: Takes Tramadol 50 mg daily prn #12. Hypersomnia- Med induced #13 Allergies to Duragesic, Lyrica, Ciprofloxacin, Dilaudid, Fentanyl, Hydrocodone-ibuprofen, Morphine, Lorcet, Sulfa, Latex
--- NOTE | 2019-01-09 01:23 | CRLCT ---
INDICATION: Fall. Speech and walking changes. TECHNIQUE: CT head without contrast. COMPARISON: 01/06/2019 FINDINGS: The ventricles and sulci are stable. There is no mass effect or midline shift. Again seen is an area of encephalomalacia in the left frontoparietal region compatible with an old infarct. There is an old right caudate head lacunar infarct. White matter hypodensities are suggestive of chronic small vessel ischemic changes. There is no loss of dangelo-white differentiation. There is no evidence of a gross acute intracranial hemorrhage. Apparent punctate densities in the left frontal lobe on image 22 were possibly seen on the prior and could be related to a small vascular structure or artifact. No acute calvarial fracture is seen. There is mild residual left parietal scalp soft tissue swelling. The visualized paranasal sinuses and mastoid air cells are clear. The visualized orbits are stable. IMPRESSION: No evidence of a gross acute intracranial hemorrhage, mass effect or loss of dangelo-white differentiation. Chronic infarcts again seen. Apparent punctate densities in the left frontal lobe could be related to artifact or a regional vascular structure. If indicated, followup can be obtained. Dictated by Iftikhar Lockett MD @ 01/09/2019 1:22:05 AM Please note that all CT scans at this facility use dose modulation, iterative reconstruction, and/or weight-based dosing when appropriate to reduce radiation dose to as low as reasonably achievable. Dictated by: Iftikhar Lockett MD @ 01/09/2019 01:22:10 (Electronically Signed)
[2019-01-09] MEDS ORDERED: Acetaminophen 325 MG Tab PO PRN (07:30)
[2019-01-09] MEDS ORDERED: traMADol 50 MG Tab PO PRN (07:34)
--- NOTE | 2019-01-09 07:37 | PCM.PN ---
- General Info Date of Service: 01/09/19 Functional Status: Reports: Pain Controlled - Review of Systems General: Reports: Weakness HEENT: Reports: No Symptoms Pulmonary: Reports: No Symptoms Cardiovascular: Reports: No Symptoms Gastrointestinal: Reports: No Symptoms Genitourinary: Reports: No Symptoms Musculoskeletal: Reports: Neck Pain Skin: Reports: No Symptoms Neurological: Reports: Headache, Trouble Speaking, Difficulty Walking, Weakness , Gait Disturbance Psychiatric: Reports: Depression, Anxiety - Patient Data Vitals - Most Recent: Last Vital Signs Temp 97.6 F 01/09/19 07:00 Pulse 81 01/09/19 07:00 Resp 16 01/09/19 07:00 BP 153/62 H 01/09/19 07:00 Pulse Ox 93 L 01/09/19 07:00 Weight - Most Recent: 140 lb I&O - Last 24 Hours: Intake & Output 01/08/19 01/09/19 01/09/19 22:59 06:59 14:59 Output Total 600 Balance -600 Lab Results Last 24 Hours: Laboratory Results - last 24 hr 01/08/19 01/08/19 01/08/19 Range/Units 21:25 21:25 21:25 WBC 7.9 (4.5-11.0) K/uL RBC 3.96 (3.30-5.50) M/uL Hgb 12.0 (12.0-15.0) g/dL Hct 37.8 (36.0-48.0) % MCV 96 (80-98) fL MCH 30 (27-31) pg MCHC 32 (32-36) % Plt Count 258 (150-400) K/uL Neut % (Auto) 64 (36-66) % Lymph % (Auto) 21 L (24-44) % [place] % (Auto) 11 H (2-6) % Eos % (Auto) 3 (2-4) % Baso % (Auto) 1 (0-1) % Sodium 138 L (140-148) mmol/L Potassium 4.2 (3.6-5.2) mmol/L Chloride 101 (100-108) mmol/L Carbon Dioxide 30 (21-32) mmol/L Anion Gap 11.2 (5.0-14.0) mmol/L BUN 21 H D (7-18) mg/dL Creatinine 0.8 (0.6-1.0) mg/dL Est Cr Clr Drug Dosing 34.91 mL/min Estimated GFR (MDRD) > 60 (>60) Glucose 105 (74-106) mg/dL Lactic Acid 0.9 (0.4-2.0) mmol/L Calcium 8.5 (8.5-10.1) mg/dL Magnesium 1.3 L (1.8-2.4) mg/dL Total Bilirubin 0.2 (0.2-1.0) mg/dL AST 18 (15-37) U/L ALT 19 (12-78) U/L Alkaline Phosphatase 122 H (46-116) U/L Creatine Kinase (26-192) U/L CK-MB (CK-2) (0-3.6) mg/mL Troponin I 0.174 H* (0.000-0.056) ng/mL Total Protein 6.5 (6.4-8.2) g/dL Albumin 3.1 L (3.4-5.0) g/dL Globulin 3.4 (2.3-3.5) g/dL Albumin/Globulin Ratio 0.9 L (1.2-2.2) Urine Color Urine Appearance Urine pH (4.5-8.0) Ur Specific [place] (1.008-1.030) Urine Protein (NEGATIVE) mg/dL Urine Glucose (UA) (NEGATIVE) mg/dL Urine Ketones (NEGATIVE) mg/dL Urine Occult Blood (NEGATIVE) Urine Nitrite (NEGATIVE) Urine Bilirubin (NEGATIVE) Urine Urobilinogen (NORMAL) mg/dL Ur Leukocyte Esterase (NEGATIVE) Urine RBC (0-5) Urine WBC (0-5) Ur Epithelial Cells Amorphous Sediment Urine Bacteria Urine Mucus 01/08/19 01/09/19 Range/Units 22:00 03:00 WBC (4.5-11.0) K/uL RBC (3.30-5.50) M/uL Hgb (12.0-15.0) g/dL Hct (36.0-48.0) % MCV (80-98) fL MCH (27-31) pg MCHC (32-36) % Plt Count (150-400) K/uL Neut % (Auto) (36-66) % Lymph % (Auto) (24-44) % Doug[place] % (Auto) (2-6) % Eos % (Auto) (2-4) % Baso % (Auto) (0-1) % Sodium (140-148) mmol/L Potassium (3.6-5.2) mmol/L Chloride (100-108) mmol/L Carbon Dioxide (21-32) mmol/L Anion Gap (5.0-14.0) mmol/L BUN (7-18) mg/dL Creatinine (0.6-1.0) mg/dL Est Cr Clr Drug Dosing mL/min Estimated GFR (MDRD) (>60) Glucose (74-106) mg/dL Lactic Acid (0.4-2.0) mmol/L Calcium (8.5-10.1) mg/dL Magnesium (1.8-2.4) mg/dL Total Bilirubin (0.2-1.0) mg/dL AST (15-37) U/L ALT (12-78) U/L Alkaline Phosphatase (46-116) U/L Creatine Kinase 51 (26-192) U/L CK-MB (CK-2) 1.5 (0-3.6) mg/mL Troponin I (0.000-0.056) ng/mL Total Protein (6.4-8.2) g/dL Albumin (3.4-5.0) g/dL Globulin (2.3-3.5) g/dL Albumin/Globulin Ratio (1.2-2.2) Urine Color Yellow Urine Appearance Slightly cloudy Urine pH 6.5 (4.5-8.0) Ur Specific [place] 1.015 (1.008-1.030) Urine Protein Negative (NEGATIVE) mg/dL Urine Glucose (UA) Normal (NEGATIVE) mg/dL Urine Ketones Negative (NEGATIVE) mg/dL Urine Occult Blood Moderate (NEGATIVE) Urine Nitrite Negative (NEGATIVE) Urine Bilirubin Negative (NEGATIVE) Urine Urobilinogen Normal (NORMAL) mg/dL Ur Leukocyte Esterase Moderate (NEGATIVE) Urine RBC 0-5 (0-5) Urine WBC 5-10 H (0-5) Ur Epithelial Cells Moderate Amorphous Sediment Not seen Urine Bacteria Few Urine Mucus Not seen Med Orders - Current: Current Medications Acetaminophen (Tylenol) 650 mg PO BID PRN PRN Reason: Pain (moderate 4-6) Acetaminophen (Tylenol) 325 mg PO TID SUPA Divalproex Sodium (Divalproex Sodium) 250 mg PO BIDMEALS REPLACED BY [facility] Levothyroxine Sodium (Synthroid) 88 mcg PO DAILY REPLACED BY [facility] Non-Formulary Medication (Alprazolam [Xanax]) 1 mg PO BID REPLACED BY [facility] Non-Formulary Medication (Pantoprazole Sodium [Protonix]) 40 mg PO DAILY REPLACED BY [facility] Sodium Chloride (Saline Flush) 10 ml FLUSH ASDIRECTED PRN PRN Reason: Keep Vein Open Spironolactone (Aldactone) 25 mg PO DAILY REPLACED BY [facility] Tramadol HCl (Ultram) 50 mg PO Q8H PRN PRN Reason: Pain Venlafaxine HCl (Effexor Xr) 75 mg PO BID SUPA - Exam General: Alert, Oriented, Cooperative, Mild Distress HEENT: Pupils Equal, Pupils Reactive, EOMI, Mucous Membr. Moist/[place] Neck: Supple Lungs: Clear to Auscultation, Normal Respiratory Effort Cardiovascular: Regular Rate, Regular Rhythm GI/Abdominal Exam: Normal Bowel Sounds, Soft, Non-Tender, No Organomegaly, No Distention, No Abnormal Bruit, No Mass, Pelvis Stable Back Exam: Normal Inspection, Full Range of Motion Extremities: Non-Tender, No Pedal Edema Peripheral Pulses: 1+: Carotid (L), Carotid (R), Radial (L), Radial (R) Skin: Warm, Dry Neurological: Other (No new neuro changes) - Problem List Review Problem List Initiated/Reviewed/Updated: Yes - My Orders Last 24 Hours: My Active Orders 01/08/19 23:29 Patient Status [ADT] Routine Oxygen Therapy [RC] PRN Up With Assistance [RC] ASDIRECTED VTE/DVT Education [RC] Per Unit Routine Vital Signs [RC] Q4H Sodium Chloride 0.9% [Saline Flush] 10 ml FLUSH ASDIRECTED PRN Saline Lock Insert [OM.PC] Routine Resuscitation Status Routine 01/08/19 23:33 Intake and Output [RC] QSHIFT 01/08/19 23:40 Head w wo Cont [CT] Stat 01/09/19 02:36 Antiembolic Devices [RC] .Routine SCD [Sequential Compression Device] [OM.PC] Routine 01/09/19 07:05 CK W CKMB [CHEM] Routine TROPONIN I [CHEM] Routine 01/09/19 07:30 Acetaminophen [Tylenol] 650 mg PO BID PRN 01/09/19 07:34 traMADol [Ultram] 50 mg PO Q8H PRN 01/09/19 08:00 Divalproex Sodium 250 mg PO BIDMEALS 01/09/19 09:00 ALPRAZolam [Xanax] 1 mg PO BID Acetaminophen [Tylenol] 325 mg PO TID Levothyroxine [Synthroid] 88 mcg PO DAILY Pantoprazole Sodium [Protonix] 40 mg PO DAILY Spironolactone [Aldactone] 25 mg PO DAILY Venlafaxine [Effexor XR] 75 mg PO BID 01/09/19 15:00 CK W CKMB [CHEM] Routine TROPONIN I [CHEM] Routine 01/09/19 Breakfast Regular Diet [DIET] - Plan Plan:: Assessment/Plan Comment:: Assessment/Plan #1. Recent head injury without LOC. She has a mental, speech ambulation change in the last 24 hrs. #2. Angina: There is elevation of Trop. without EKG change #3. ASHD She has a history of CABS and angiograms showing arthrosclerosis. #4. 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 #5. History of seizures. Continue with Divalproex 250 mg twice daily #6. Hypothyroidism Continue with Levothyroxine 88mcg/day #7. CRF #8. Depression: Continue with Venlafaxine 75 mg daily #9. Anxiety: Continue with Xanax prn. #10 GERD: Continue with Pantoprazole 40 mg daily. #11. Fibromyalgia: Takes Tramadol 50 mg daily prn #12. Hypersomnia- Med induced #13 Allergies to Duragesic, Lyrica, Ciprofloxacin, Dilaudid, Fentanyl, Hydrocodone-ibuprofen, Morphine, Lorcet, Sulfa, Latex
[2019-01-09] MEDS: ALPRAZolam 0.5 MG Tab PO SCH ×2 (08:30→20:57)
[2019-01-09] MEDS: Spironolactone 25 MG Tab PO SCH (08:31)
[2019-01-09] MEDS: Divalproex Sodium Delayed-Release 250 MG Tab.CR PO SCH ×2 (08:31→17:28)
[2019-01-09] MEDS: Levothyroxine 88 MCG Tab PO SCH (08:31)
[2019-01-09] MEDS: Pantoprazole 40 MG Tab.CR PO SCH (08:31)
[2019-01-09] MEDS: Acetaminophen 325 MG Tab PO SCH ×3 (08:31→20:58)
[2019-01-09] MEDS ORDERED: Venlafaxine 75 MG Cap.ER PO SCH (09:00)
[2019-01-09] MEDS: Venlafaxine 75 MG Cap.ER PO SCH (10:43)
[2019-01-10 07:22] VITALS: BP 141/63
[2019-01-10] MEDS: ALPRAZolam 0.5 MG Tab PO SCH (08:17)
[2019-01-10] MEDS: Venlafaxine 75 MG Cap.ER PO SCH ×2 (08:17→08:24)
[2019-01-10] MEDS: Spironolactone 25 MG Tab PO SCH (08:18)
[2019-01-10] MEDS: Acetaminophen 325 MG Tab PO SCH (08:18)
[2019-01-10] MEDS: Pantoprazole 40 MG Tab.CR PO SCH (08:18)
[2019-01-10] MEDS: Divalproex Sodium Delayed-Release 250 MG Tab.CR PO SCH (08:18)
[2019-01-10] MEDS: Levothyroxine 88 MCG Tab PO SCH (08:18)
--- NOTE | 2019-01-10 10:14 | PCM.DCSUM1 ---
Discharge Summary - Hospital Course Brief History: She fell 2 days before admission hitting her head. A CT was done which showed a hematoma on the left lateral scalp. Now has difficultly thinking and unable to walk with increased problem moving her right side. There was also a change in her speech. She does have a history of a CVA post CABS in 2001. Neuro evaluation had deteriorated since the fall. Diagnosis: Stroke: No - Discharge Data Discharge Date: 01/10/19 Discharge Disposition: Home, Self-Care 01 Condition: Stable - Patient Summary/Data Hospital Course: Upon admission there was a neuro change and because of the head injury a repeat CT of the head was done which did show a new neuro problem. The trop and CK were elevated and went higher while in the hospital. She is a DNR and it was chosen not to follow up with this as nothing further will be done with an acute coronary problem. At the time of discharge her neuro stasis has returned to her normal prior to the head injury. She will be discharged home today. She will start PT as planned before with therapy to the legs and upper extremities. This will be for ambulation as well. - Patient Instructions Diet: Heart Healthy Diet Activity: As Tolerated - Discharge Plan *PRESCRIPTION DRUG MONITORING PROGRAM REVIEWED*: No Home Medications: Home Meds Levothyroxine [Synthroid] 88 mcg PO DAILY 05/28/13 [History] ALPRAZolam [Xanax] 1 mg PO BID 05/29/13 [History] Pantoprazole Sodium [Protonix] 40 mg PO DAILY 02/28/15 [History] Acetaminophen 650 mg PO BID PRN 12/30/16 [History] Acetaminophen [Tylenol] 325 mg PO TID 05/07/17 [History] Furosemide [Lasix] 20 mg PO DAILY tablet 05/12/17 [Rx] Spironolactone [Aldactone] 25 mg PO DAILY tablet 05/13/17 [Rx] Venlafaxine HCl [Venlafaxine ER] 225 mg PO DAILY 01/09/19 [History] Forms: ED Department Discharge Referrals: Michael Gomez Sr, MD [Primary Care Provider] - - Discharge Summary/Plan Comment DC Time >30 min.: No Discharge Summary/Plan Comment: Assessment/Plan Comment:: Assessment/Plan #1. Recent head injury without LOC. She has a mental, speech ambulation change in the last 24 hrs. #2. Angina: There is elevation of Trop. without EKG change #3. ASHD She has a history of CABS and angiograms showing arthrosclerosis. #4. 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 #5. History of seizures. Continue with Divalproex 250 mg twice daily #6. Hypothyroidism Continue with Levothyroxine 88mcg/day #7. CRF #8. Depression: Continue with Venlafaxine 75 mg daily #9. Anxiety: Continue with Xanax prn. #10 GERD: Continue with Pantoprazole 40 mg daily. #11. Fibromyalgia: Takes Tramadol 50 mg daily prn #12. Hypersomnia- Med induced #13 Allergies to Duragesic, Lyrica, Ciprofloxacin, Dilaudid, Fentanyl, Hydrocodone-ibuprofen, Morphine, Lorcet, Sulfa, Latex - Patient Data Vitals - Most Recent: Last Vital Signs Temp 96.9 F 01/10/19 07:21 Pulse 71 01/10/19 07:21 Resp 16 01/10/19 07:21 BP 141/63 H 01/10/19 07:21 Pulse Ox 95 01/10/19 07:21 Weight - Most Recent: 140 lb I&O - Last 24 hours: Intake & Output 01/09/19 01/10/19 01/10/19 22:59 06:59 14:59 Intake Total 300 Output Total 100 300 300 Balance -100 0 -300 Lab Results - Last 24 hrs: Laboratory Results - last 24 hr 01/09/19 Range/Units 15:02 Creatine Kinase 50 (26-192) U/L CK-MB (CK-2) 2.5 (0-3.6) mg/mL Troponin I 0.392 H* (0.000-0.056) ng/mL Med Orders - Current: Current Medications Acetaminophen (Tylenol) 650 mg PO BID PRN PRN Reason: Pain (moderate 4-6) Acetaminophen (Tylenol) 325 mg PO TID [facility] Last Admin: 01/10/19 08:18 Dose: 325 mg Alprazolam (Xanax) 1 mg PO BID [facility] Last Admin: 01/10/19 08:17 Dose: 1 mg Divalproex Sodium (Divalproex Sodium) 250 mg PO BIDMEALS [facility] Last Admin: 04/14/19 08:18 Dose: 250 mg Levothyroxine Sodium (Synthroid) 88 mcg PO DAILY@0730 [facility] Last Admin: 01/10/19 08:18 Dose: 88 mcg Pantoprazole Sodium (Protonix) 40 mg PO ACBREAKFAST [facility] Last Admin: 01/10/19 08:18 Dose: 40 mg Sodium Chloride (Saline Flush) 10 ml FLUSH ASDIRECTED PRN PRN Reason: Keep Vein Open Spironolactone (Aldactone) 25 mg PO DAILY [facility] Last Admin: 01/10/19 08:18 Dose: 25 mg Tramadol HCl (Ultram) 50 mg PO Q8H PRN PRN Reason: Pain Venlafaxine HCl (Effexor Xr) 225 mg PO DAILY [facility] Last Admin: 01/10/19 08:24 Dose: 75 mg
--- NOTE | 2019-01-10 10:14 | PCM.PN ---
- General Info Date of Service: 01/10/19 Functional Status: Reports: Pain Controlled - Review of Systems General: Reports: Weakness HEENT: Reports: No Symptoms Pulmonary: Reports: No Symptoms Cardiovascular: Reports: No Symptoms Gastrointestinal: Reports: No Symptoms Genitourinary: Reports: No Symptoms Musculoskeletal: Reports: Neck Pain, Joint Pain Skin: Reports: No Symptoms Neurological: Reports: Difficulty Walking, Weakness, Gait Disturbance Psychiatric: Reports: Depression, Anxiety, Agitation - Patient Data Vitals - Most Recent: Last Vital Signs Temp 96.9 F 01/10/19 07:21 Pulse 71 01/10/19 07:21 Resp 16 01/10/19 07:21 BP 141/63 H 01/10/19 07:21 Pulse Ox 95 01/10/19 07:21 Weight - Most Recent: 140 lb I&O - Last 24 Hours: Intake & Output 01/09/19 01/10/19 01/10/19 22:59 06:59 14:59 Intake Total 300 Output Total 100 300 300 Balance -100 0 -300 Lab Results Last 24 Hours: Laboratory Results - last 24 hr 01/09/19 Range/Units 15:02 Creatine Kinase 50 (26-192) U/L CK-MB (CK-2) 2.5 (0-3.6) mg/mL Troponin I 0.392 H* (0.000-0.056) ng/mL Med Orders - Current: Current Medications Acetaminophen (Tylenol) 650 mg PO BID PRN PRN Reason: Pain (moderate 4-6) Acetaminophen (Tylenol) 325 mg PO TID [facility] Last Admin: 01/10/19 08:18 Dose: 325 mg Alprazolam (Xanax) 1 mg PO BID [facility] Last Admin: 01/10/19 08:17 Dose: 1 mg Divalproex Sodium (Divalproex Sodium) 250 mg PO BIDMEALS [facility] Last Admin: 01/10/19 08:18 Dose: 250 mg Levothyroxine Sodium (Synthroid) 88 mcg PO DAILY@0730 [facility] Last Admin: 01/10/19 08:18 Dose: 88 mcg Pantoprazole Sodium (Protonix) 40 mg PO ACBREAKFAST [facility] Last Admin: 01/10/19 08:18 Dose: 40 mg Sodium Chloride (Saline Flush) 10 ml FLUSH ASDIRECTED PRN PRN Reason: Keep Vein Open Spironolactone (Aldactone) 25 mg PO DAILY [facility] Last Admin: 01/10/19 08:18 Dose: 25 mg Tramadol HCl (Ultram) 50 mg PO Q8H PRN PRN Reason: Pain Venlafaxine HCl (Effexor Xr) 225 mg PO DAILY [facility] Last Admin: 01/10/19 08:24 Dose: 75 mg - Exam General: Alert, Oriented, Mild Distress HEENT: Pupils Equal, Pupils Reactive, EOMI, Mucous Membr. Moist/[place] Neck: Supple Lungs: Clear to Auscultation, Normal Respiratory Effort Cardiovascular: Regular Rate, Regular Rhythm GI/Abdominal Exam: Normal Bowel Sounds, Soft, No Distention, No Abnormal Bruit Extremities: Normal Inspection Peripheral Pulses: 1+: Carotid (L), Carotid (R), Radial (L), Radial (R) Skin: Warm, Dry, Intact Neurological: Sensation Intact Psy/Mental Status: Labile Mood, Anxious, Depressed, Agitated - Problem List Review Problem List Initiated/Reviewed/Updated: Yes - Plan Plan:: Assessment/Plan Comment:: Assessment/Plan #1. Recent head injury without LOC. She has a mental, speech ambulation change in the last 24 hrs. #2. Angina: There is elevation of Trop. without EKG change #3. ASHD She has a history of CABS and angiograms showing arthrosclerosis. #4. 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 #5. History of seizures. Continue with Divalproex 250 mg twice daily #6. Hypothyroidism Continue with Levothyroxine 88mcg/day #7. CRF #8. Depression: Continue with Venlafaxine 75 mg daily #9. Anxiety: Will hold this as she is excessive in fatigue #10 GERD: Continue with Pantoprazole 40 mg daily. #11. Fibromyalgia: Takes Tramadol will stop this due to side effects #12. Hypersomnia- Med induced #13 Allergies to Duragesic, Lyrica, Ciprofloxacin, Dilaudid, Fentanyl, Hydrocodone-ibuprofen, Morphine, Lorcet, Sulfa, Latex
[2019-01-11] MEDS ORDERED: Levothyroxine 88 MCG Tab PO SCH (07:30)
== END 2019-01-10 11:28 | disposition home or self-care (01) | DRG 914 ==
LOC: JP.ED 20:37 → JP.MS 23:29
PROVIDERS: ADMIT Internal Medicine; ATTEND Internal Medicine
DX: S09.90XA Unspecified injury of head, initial encounter (principal); I69.951 Hemiplegia and hemiparesis following unspecified cerebrovascular disease affecting right dominant side; W19.XXXA Unspecified fall, initial encounter; Z66 Do not resuscitate; I12.9 Hypertensive chronic kidney disease with stage 1 through stage 4 chronic kidney disease, or unspecified chronic kidney disease; E03.9 Hypothyroidism, unspecified; R47.9 Unspecified speech disturbances; I69.920 Aphasia following unspecified cerebrovascular disease; R26.9 Unspecified abnormalities of gait and mobility; N18.9 Chronic kidney disease, unspecified; I25.10 Atherosclerotic heart disease of native coronary artery without angina pectoris; Z85.3 Personal history of malignant neoplasm of breast; R26.2 Difficulty in walking, not elsewhere classified; Z95.1 Presence of aortocoronary bypass graft; Z95.5 Presence of coronary angioplasty implant and graft; R74.8 Abnormal levels of other serum enzymes; Z85.828 Personal history of other malignant neoplasm of skin; Z85.820 Personal history of malignant melanoma of skin; F32.9 Major depressive disorder, single episode, unspecified; F41.9 Anxiety disorder, unspecified; M79.7 Fibromyalgia; M54.9 Dorsalgia, unspecified; G89.29 Other chronic pain; H54.7 Unspecified visual loss; H91.90 Unspecified hearing loss, unspecified ear; Z88.1 Allergy status to other antibiotic agents; Z91.040 Latex allergy status; Z88.5 Allergy status to narcotic agent; Z88.2 Allergy status to sulfonamides; Z88.8 Allergy status to other drugs, medicaments and biological substances; Z96.659 Presence of unspecified artificial knee joint; Z90.11 Acquired absence of right breast and nipple; Z91.5 Personal history of self-harm; F19.982 Other psychoactive substance use, unspecified with psychoactive substance-induced sleep disorder
CPT/HCPCS: 36415; 70450; 71045; 80053; 81001; 82550; 82553; 83605; 83735; 84484; 85025; 93005; 99285-25; A9270-GY

== ENCOUNTER 2019-01-11 21:14 | Inpatient (IN) | payer MEDICARE ==
[2019-01-11] MEDS ORDERED: Aspirin 81 MG Tab.Chew PO ONE (21:26)
--- NOTE | 2019-01-11 21:34 | EDM.PDOC ---
ED HPI GENERAL MEDICAL PROBLEM - General Chief Complaint: Chest Pain Stated Complaint: HEART Time Seen by Provider: 01/11/19 21:33 Source of Information: Reports: Patient History Limitations: Reports: No Limitations - History of Present Illness INITIAL COMMENTS - FREE TEXT/NARRATIVE: pt arrived with left sided chest pain This started tonight. She did take 2 nitros. and she did think she had some relieve. She then started having pain this pm and it was very severe. She was discharged from the hosp yesterday after having a simiolar episode. Onset: Today, Other ( came on about noon today. ) Duration: Hour(s): Location: Reports: Chest Associated Symptoms: Reports: Chest Pain, Diaphoresis, Other (pt was very sweaty at the time of the pain. ) Chest Pain Score (Numeric/FACES): 10 - Related Data Allergies Allergy/AdvReac Type Severity Reaction Status Date / Time ciprofloxacin HCl Allergy Rash Verified 01/08/19 20:39 [From Cipro] Latex, Natural Rubber Allergy Cannot Verified 01/08/19 20:39 Remember levofloxacin Allergy Rash Verified 01/08/19 20:39 Sulfa (Sulfonamide Allergy Rash Verified 01/08/19 20:39 Antibiotics) tramadol Allergy Confusion Verified 01/08/19 20:39 diazepam AdvReac Change Verified 01/08/19 20:39 Mental Status fentanyl AdvReac Change Verified 01/08/19 20:39 Mental Status hydrocodone [Hydrocodone] AdvReac Change Verified 01/08/19 20:39 Mental Status hydrocodone bitartrate AdvReac Change Verified 01/08/19 20:39 [From Lorcet 10/650] Mental Status hydromorphone HCl AdvReac Change Verified 01/08/19 20:39 [From Dilaudid] Mental Status morphine AdvReac Change Verified 01/08/19 20:39 Mental Status pregabalin [From Lyrica] AdvReac Change Verified 01/08/19 20:39 Mental Status Home Meds: Home Meds Levothyroxine [Synthroid] 88 mcg PO DAILY 05/28/13 [History] ALPRAZolam [Xanax] 1 mg PO BID 05/29/13 [History] Pantoprazole Sodium [Protonix] 40 mg PO DAILY 02/28/15 [History] Acetaminophen 650 mg PO BID PRN 12/30/16 [History] Acetaminophen [Tylenol] 325 mg PO TID 05/07/17 [History] Furosemide [Lasix] 20 mg PO DAILY tablet 05/12/17 [Rx] Spironolactone [Aldactone] 25 mg PO DAILY tablet 05/13/17 [Rx] Venlafaxine HCl [Venlafaxine ER] 225 mg PO DAILY 01/09/19 [History] Past Medical History HEENT History: Reports: Cataract, Hard of Hearing, Impaired Vision Other HEENT History: removed remnants of tonsils. Cardiovascular History: Reports: Bypass, CAD, Hypertension, Stents Other Cardiovascular History: cabg Respiratory History: Reports: Other (See Below) Other Respiratory History: pleural effusion this hospital stay, recent cough lasting over a month Genitourinary History: Reports: Renal Calculus Musculoskeletal History: Reports: Back Pain, Chronic, Fibromyalgia, Other (See Below) Other Musculoskeletal History: bilat wrist pain Neurological History: Reports: CVA, Seizure, TIA, Other (See Below) Other Neuro History: CVA affecting Rt side per family Psychiatric History: Reports: Depression, Suicide Attempt, Suicidal Ideation Endocrine/Metabolic History: Reports: Hypothyroidism Hematologic History: Reports: Anemia, Blood Transfusion(s) Oncologic (Cancer) History: Reports: Basal Cell Carcinoma, Breast Other Oncologic History: Melanoma Dermatologic History: Reports: Melanoma Other Dermatologic History: healing wound to left forehead from a melanoma removal - Infectious Disease History Infectious Disease History: Reports: Chicken Pox, Measles, Mumps - Past Surgical History Cardiovascular Surgical History: Reports: Coronary Artery Bypass Respiratory Surgical History: Reports: Thoracentesis GI Surgical History: Reports: Cholecystectomy, Hernia, Inguinal Female Surgical History: Reports: Mastectomy, Other (See Below) Other Female Surgeries/Procedures: breast ca and mastectomy Rt side Musculoskeletal Surgical History: Reports: Knee Replacement Oncologic Surgical History: Reports: Mastectomy, Other (See Below) Other Oncologic Surgeries/Procedures: Rt side Social & Family History - Family History Family Medical History: Noncontributory HEENT: Reports: None : Reports: Other (See Below) Other Family History: son, kidney transplant Oncologic: Reports: Pancreatic, Other (See Below) Other Oncologic Family History: son from pancreatic ca - Caffeine Use Caffeine Use: Reports: Coffee Other Caffeine Use: 2-3 cups per day ED ROS GENERAL - Review of Systems Review Of Systems: See Below Constitutional: Reports: No Symptoms HEENT: Reports: No Symptoms Respiratory: Reports: Shortness of Breath Cardiovascular: Reports: Chest Pain Endocrine: Reports: No Symptoms GI/Abdominal: Reports: No Symptoms : Reports: No Symptoms Skin: Reports: No Symptoms Neurological: Reports: No Symptoms ED EXAM, GENERAL - Physical Exam Exam: See Below Free Text/Narrative:: pt arrived crying and very emotional . She was having severe left sided cherst pain. She did state that she was sweaty at the time when the pain was at its worse. She was uncomfortable on arrival and shortly after her pain got alot better. Exam Limited By: No Limitations General Appearance: Alert, Moderate Distress, Other (pupils are equal and reactive. ) Ears: Normal TMs Nose: Normal Inspection Throat/Mouth: Normal Inspection Head: Atraumatic Neck: Normal Inspection Respiratory/Chest: No Respiratory Distress Cardiovascular: Regular Rate, Rhythm GI/Abdominal: Soft, Non-Tender (Female) Exam: Deferred Rectal (Female) Exam: Deferred Extremities: Normal Inspection Neurological: Alert, Oriented (pt states that her rt side is not funtioning as well since the fall. ) Psychiatric: Anxious Course - Vital Signs Last Recorded V/S: Last Vital Signs Temp 35.8 C 01/11/19 21:15 Pulse 76 01/11/19 22:16 Resp 13 01/11/19 23:07 BP 136/57 L 01/11/19 23:07 Pulse Ox 100 01/11/19 23:07 - Orders/Labs/Meds Orders: Active Orders 24 hr Category Date Time Status EKG Documentation Completion [RC] ASDIRECTED Care 01/11/19 21:25 Active UA W/MICROSCOPIC [URIN] Urgent Lab 01/11/19 21:25 Ordered EKG 12 Lead [EK] Routine Ther 01/11/19 21:25 Ordered Labs: Laboratory Tests 01/11/19 01/11/19 01/11/19 Range/Units 21:30 21:30 21:30 WBC 7.4 (4.5-11.0) K/uL RBC 4.17 (3.30-5.50) M/uL Hgb 12.8 (12.0-15.0) g/dL Hct 40.1 (36.0-48.0) % MCV 96 (80-98) fL MCH 31 (27-31) pg MCHC 32 (32-36) % Plt Count 291 (150-400) K/uL Neut % (Auto) 62 (36-66) % Lymph % (Auto) 23 L (24-44) % [place] % (Auto) 11 H (2-6) % Eos % (Auto) 3 (2-4) % Baso % (Auto) 1 (0-1) % Sodium 138 L (140-148) mmol/L Potassium 4.7 (3.6-5.2) mmol/L Chloride 103 (100-108) mmol/L Carbon Dioxide 29 (21-32) mmol/L Anion Gap 10.7 (5.0-14.0) mmol/L BUN 22 H (7-18) mg/dL Creatinine 0.9 (0.6-1.0) mg/dL Est Cr Clr Drug Dosing 31.04 mL/min Estimated GFR (MDRD) 59 L (>60) Glucose 124 H (74-106) mg/dL Calcium 9.1 (8.5-10.1) mg/dL Total Bilirubin 0.2 (0.2-1.0) mg/dL AST 16 (15-37) U/L ALT 18 (12-78) U/L Alkaline Phosphatase 132 H (46-116) U/L Troponin I 0.141 H* (0.000-0.056) ng/mL Total Protein 7.0 (6.4-8.2) g/dL Albumin 3.2 L (3.4-5.0) g/dL Globulin 3.8 H (2.3-3.5) g/dL Albumin/Globulin Ratio 0.8 L (1.2-2.2) Meds: Medications Discontinued Medications Generic Name Dose Route Start Last Admin Trade Name Jermanq PRN Reason Stop Dose Admin Aspirin 324 mg 01/11/19 21:26 01/11/19 21:57 Aspirin PO 01/11/19 21:27 324 mg ONETIME ONE Administration - Re-Assessments/Exams Free Text/Narrative Re-Assessment/Exam: 01/11/19 23:28 her ekg reveals her typical bundle branch without acute findings. Her trop waas at .141 which is where it was when she was discharged from the hosp. She has remained fairly painfree here at the hosp. Her chest xray was clear. Departure - Departure Time of Disposition: 23:30 Disposition: Admitted As Inpatient 66 Condition: Fair Clinical Impression: Chest pain, atypical Referrals: PCP,None [Primary Care Provider] - Forms: ED Department Discharge Care Plan Goals: admit to Dr Gomez - My Orders Last 24 Hours: My Active Orders 01/11/19 21:25 EKG Documentation Completion [RC] ASDIRECTED UA W/MICROSCOPIC [URIN] Urgent EKG 12 Lead [EK] Routine - Assessment/Plan Last 24 Hours: My Active Orders 01/11/19 21:25 EKG Documentation Completion [RC] ASDIRECTED UA W/MICROSCOPIC [URIN] Urgent EKG 12 Lead [EK] Routine
--- NOTE | 2019-01-11 22:45 | CRLCR ---
INDICATION: Pain TECHNIQUE: Chest 1 view. COMPARISON: 08/13/2017 FINDINGS: Cardiovascular and mediastinum: Heart size and vasculature are normal in caliber and appearance. Mediastinum is within normal limits. Sternotomy wires noted. Lungs and pleural space: Lungs are clear. No sign of infiltrate or mass. No sign of pleural effusion. No pneumothorax. Bones and soft tissues: No significant findings. IMPRESSION: Unremarkable chest. Dictated by Cayden Rolon MD @ 01/11/2019 10:43:03 PM Dictated by: Cayden Rolon MD @ 01/11/2019 22:43:11 (Electronically Signed)
--- NOTE | 2019-01-11 23:38 | PCM.HP ---
H&P History of Present Illness - General Date of Service: 01/11/19 Source of Information: Patient, EMS, Family History Limitations: Reports: No Limitations - History of Present Illness Initial Comments - Free Text/Narative: Imani begun having chest pain about noon today and lasted off and on the rest of the day and became worse this evening and relieved for a short period of time with nitroglycerine SL. She was recently in the hospital after a fall and had elevation of the Trop. She will be admitted to monitor the affect of NTG and ambulation with evaluation by PT when stable for her heart condition. My concern is that the NTG may cause hypotension which will cause a fall again, but we need to control her chest pain. Onset of Symptoms: Reports: Gradual Duration of Symptoms: Reports: Hour(s): Location: Reports: Chest Quality: Reports: Dull, Pressure Associated Symptoms: Reports: Chest Pain Chest Pain Score (Numeric/FACES): 10 - Related Data Allergies/Adverse Reactions: Allergies Allergy/AdvReac Type Severity Reaction Status Date / Time ciprofloxacin HCl Allergy Rash Verified 01/08/19 20:39 [From Cipro] Latex, Natural Rubber Allergy Cannot Verified 01/08/19 20:39 Remember levofloxacin Allergy Rash Verified 01/08/19 20:39 Sulfa (Sulfonamide Allergy Rash Verified 01/08/19 20:39 Antibiotics) tramadol Allergy Confusion Verified 01/08/19 20:39 diazepam AdvReac Change Verified 01/08/19 20:39 Mental Status fentanyl AdvReac Change Verified 01/08/19 20:39 Mental Status hydrocodone [Hydrocodone] AdvReac Change Verified 01/08/19 20:39 Mental Status hydrocodone bitartrate AdvReac Change Verified 01/08/19 20:39 [From Lorcet [id number]] Mental Status hydromorphone HCl AdvReac Change Verified 01/08/19 20:39 [From Dilaudid] Mental Status morphine AdvReac Change Verified 01/08/19 20:39 Mental Status pregabalin [From Lyrica] AdvReac Change Verified 01/08/19 20:39 Mental Status Home Medications: Home Meds Levothyroxine [Synthroid] 88 mcg PO DAILY 05/28/13 [History] ALPRAZolam [Xanax] 1 mg PO BID 05/29/13 [History] Pantoprazole Sodium [Protonix] 40 mg PO DAILY 02/28/15 [History] Acetaminophen 650 mg PO BID PRN 12/30/16 [History] Acetaminophen [Tylenol] 325 mg PO TID 05/07/17 [History] Furosemide [Lasix] 20 mg PO DAILY tablet 05/12/17 [Rx] Spironolactone [Aldactone] 25 mg PO DAILY tablet 05/13/17 [Rx] Venlafaxine HCl [Venlafaxine ER] 225 mg PO DAILY 01/09/19 [History] Past Medical History HEENT History: Reports: Cataract, Hard of Hearing, Impaired Vision Other HEENT History: removed remnants of tonsils. Cardiovascular History: Reports: Bypass, CAD, Hypertension, Stents Other Cardiovascular History: cabg Respiratory History: Reports: Other (See Below) Other Respiratory History: pleural effusion this hospital stay, recent cough lasting over a month Genitourinary History: Reports: Renal Calculus Musculoskeletal History: Reports: Back Pain, Chronic, Fibromyalgia, Other (See Below) Other Musculoskeletal History: bilat wrist pain Neurological History: Reports: CVA, Seizure, TIA, Other (See Below) Other Neuro History: CVA affecting Rt side per family Psychiatric History: Reports: Depression, Suicide Attempt, Suicidal Ideation Endocrine/Metabolic History: Reports: Hypothyroidism Hematologic History: Reports: Anemia, Blood Transfusion(s) Oncologic (Cancer) History: Reports: Basal Cell Carcinoma, Breast Other Oncologic History: Melanoma Dermatologic History: Reports: Melanoma Other Dermatologic History: healing wound to left forehead from a melanoma removal - Infectious Disease History Infectious Disease History: Reports: Chicken Pox, Measles, Mumps - Past Surgical History Cardiovascular Surgical History: Reports: Coronary Artery Bypass Respiratory Surgical History: Reports: Thoracentesis GI Surgical History: Reports: Cholecystectomy, Hernia, Inguinal Female Surgical History: Reports: Mastectomy, Other (See Below) Other Female Surgeries/Procedures: breast ca and mastectomy Rt side Musculoskeletal Surgical History: Reports: Knee Replacement Oncologic Surgical History: Reports: Mastectomy, Other (See Below) Other Oncologic Surgeries/Procedures: Rt side Social & Family History - Family History Family Medical History: Noncontributory HEENT: Reports: None : Reports: Other (See Below) Other Family History: son, kidney transplant Oncologic: Reports: Pancreatic, Other (See Below) Other Oncologic Family History: son from pancreatic ca - Tobacco Use Smoking Status *Q: Never Smoker - Caffeine Use Caffeine Use: Reports: Coffee Other Caffeine Use: 2-3 cups per day - Recreational Drug Use Recreational Drug Use: No H&P Review of Systems - Review of Systems: Review Of Systems: See Below General: Reports: Weakness HEENT: Reports: No Symptoms Cardiovascular: Reports: Chest Pain Gastrointestinal: Reports: No Symptoms Genitourinary: Reports: No Symptoms Musculoskeletal: Reports: No Symptoms Skin: Reports: No Symptoms Neurological: Reports: No Symptoms Immunologic: Reports: No Symptoms Exam - Exam Exam: See Below - Vital Signs Vital Signs: Last Vital Signs Temp 96.5 F 01/11/19 21:15 Pulse 76 01/11/19 22:16 Resp 13 01/11/19 23:07 BP 136/57 L 01/11/19 23:07 Pulse Ox 100 01/11/19 23:07 Weight: 138 lb - Exam General: Alert, Oriented, 4 HEENT: PERRLA, Hearing Intact, Mucosa Moist & [place], Nares Patent, Normal Nasal Septum, Posterior Pharynx Clear, Conjunctiva Clear, EOMI, EACs Clear, TMs Clear Neck: Supple, Trachea Midline, 2 Lungs: Clear to Auscultation, Normal Respiratory Effort Cardiovascular: Regular Rate GI/Abdominal Exam: Normal Bowel Sounds, Soft, Non-Tender Extremities: Pedal Edema Peripheral Pulses: 1+: Carotid (L), Carotid (R), Radial (L), Radial (R) Skin: Warm, Dry, Intact Neuro Extensive - Mental Status: Alert, Oriented x3, Normal Mood/Affect, Memory Intact DTR: 1+: Bicep (L), Bicep (R) Psychiatric: Alert, Anxious - Patient Data Lab Results Last 24 hrs: Laboratory Results - last 24 hr 01/11/19 01/11/19 01/11/19 Range/Units 21:30 21:30 21:30 WBC 7.4 (4.5-11.0) K/uL RBC 4.17 (3.30-5.50) M/uL Hgb 12.8 (12.0-15.0) g/dL Hct 40.1 (36.0-48.0) % MCV 96 (80-98) fL MCH 31 (27-31) pg MCHC 32 (32-36) % Plt Count 291 (150-400) K/uL Neut % (Auto) 62 (36-66) % Lymph % (Auto) 23 L (24-44) % [place] % (Auto) 11 H (2-6) % Eos % (Auto) 3 (2-4) % Baso % (Auto) 1 (0-1) % Sodium 138 L (140-148) mmol/L Potassium 4.7 (3.6-5.2) mmol/L Chloride 103 (100-108) mmol/L Carbon Dioxide 29 (21-32) mmol/L Anion Gap 10.7 (5.0-14.0) mmol/L BUN 22 H (7-18) mg/dL Creatinine 0.9 (0.6-1.0) mg/dL Est Cr Clr Drug Dosing 31.04 mL/min Estimated GFR (MDRD) 59 L (>60) Glucose 124 H (74-106) mg/dL Calcium 9.1 (8.5-10.1) mg/dL Total Bilirubin 0.2 (0.2-1.0) mg/dL AST 16 (15-37) U/L ALT 18 (12-78) U/L Alkaline Phosphatase 132 H (46-116) U/L Troponin I 0.141 H* (0.000-0.056) ng/mL Total Protein 7.0 (6.4-8.2) g/dL Albumin 3.2 L (3.4-5.0) g/dL Globulin 3.8 H (2.3-3.5) g/dL Albumin/Globulin Ratio 0.8 L (1.2-2.2) Result Diagrams: 01/11/19 21:30 01/11/19 21:30 Problem List Initiated/Reviewed/Updated: Yes Orders Last 24hrs: Active Orders 24 hr Category Date Time Status EKG Documentation Completion [RC] ASDIRECTED Care 01/11/19 21:25 Active UA W/MICROSCOPIC [URIN] Urgent Lab 01/11/19 21:25 Ordered EKG 12 Lead [EK] Routine Ther 01/11/19 21:25 Ordered Assessment/Plan Comment:: Assessment/Plan #1. Angina: There is elevation of Trop. without EKG change LBBB #2. ASHD She has a history of CABS and angiograms showing arthrosclerosis. #3. 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 #4. History of seizures. Continue with Divalproex 250 mg twice daily if she will consent to take this. #5. Hypothyroidism Continue with Levothyroxine 88mcg/day #6. CRF #7. Depression: Continue with Venlafaxine 75 mg daily #8. Anxiety: Continue with Xanax prn. #9 GERD: Continue with Pantoprazole 40 mg daily. #10. Fibromyalgia: Takes Tramadol 50 mg daily prn in the past this has been stopped. #11. Hypersomnia- Med induced possibly Tramadol. #12. Allergies to Duragesic, Lyrica, Ciprofloxacin, Dilaudid, Fentanyl, Hydrocodone-ibuprofen, Morphine, Lorcet, Sulfa, Latex
[2019-01-12] MEDS: Acetaminophen 325 MG Tab PO PRN (01:23)
[2019-01-12] MEDS: Pantoprazole 40 MG Tab.CR PO SCH (08:29)
[2019-01-12] MEDS: Levothyroxine 88 MCG Tab PO SCH (08:33)
[2019-01-12] MEDS: Venlafaxine 75 MG Cap.ER PO SCH (08:41)
[2019-01-12] MEDS: Spironolactone 25 MG Tab PO SCH (08:41)
[2019-01-12] MEDS: Isosorbide Dinitrate 10 MG Tab PO SCH ×2 (08:42→21:06)
[2019-01-12] MEDS: Furosemide 20 MG Tab PO SCH (08:48)
[2019-01-12] MEDS ORDERED: Levothyroxine 88 MCG Tab PO SCH (09:00)
[2019-01-12] MEDS ORDERED: Pantoprazole 40 MG Tab.CR PO SCH (09:00)
--- NOTE | 2019-01-12 18:02 | PCM.PN ---
- General Info Date of Service: 01/12/19 Admission Dx/Problem (Free Text): Imani is very upset does not want to stay here she wants to go home immediately. The states that he can't take care of her. She refuses to take her Depakote which she was been on for her anxiety and hostility. Functional Status: Reports: Pain Controlled - Review of Systems General: Reports: Weakness HEENT: Reports: No Symptoms Pulmonary: Reports: No Symptoms Cardiovascular: Reports: No Symptoms Gastrointestinal: Reports: No Symptoms Musculoskeletal: Reports: Other (history of fibromyalgia) Skin: Reports: No Symptoms Neurological: Reports: Difficulty Walking, Weakness, Gait Disturbance Psychiatric: Reports: Anxiety, Agitation - Patient Data Vitals - Most Recent: Last Vital Signs Temp 95.4 F 01/12/19 14:27 Pulse 72 01/12/19 14:27 Resp 18 01/12/19 14:27 BP 134/55 L 01/12/19 14:27 Pulse Ox 96 01/12/19 14:27 Weight - Most Recent: 138 lb I&O - Last 24 Hours: Intake & Output 01/12/19 01/12/19 01/12/19 06:59 14:59 22:59 Output Total 400 550 Balance -400 -550 Lab Results Last 24 Hours: Laboratory Results - last 24 hr 01/11/19 01/11/19 01/11/19 Range/Units 21:30 21:30 21:30 WBC 7.4 (4.5-11.0) K/uL RBC 4.17 (3.30-5.50) M/uL Hgb 12.8 (12.0-15.0) g/dL Hct 40.1 (36.0-48.0) % MCV 96 (80-98) fL MCH 31 (27-31) pg MCHC 32 (32-36) % Plt Count 291 (150-400) K/uL Neut % (Auto) 62 (36-66) % Lymph % (Auto) 23 L (24-44) % [place] % (Auto) 11 H (2-6) % Eos % (Auto) 3 (2-4) % Baso % (Auto) 1 (0-1) % Sodium 138 L (140-148) mmol/L Potassium 4.7 (3.6-5.2) mmol/L Chloride 103 (100-108) mmol/L Carbon Dioxide 29 (21-32) mmol/L Anion Gap 10.7 (5.0-14.0) mmol/L BUN 22 H (7-18) mg/dL Creatinine 0.9 (0.6-1.0) mg/dL Est Cr Clr Drug Dosing 31.04 mL/min Estimated GFR (MDRD) 59 L (>60) Glucose 124 H (74-106) mg/dL Calcium 9.1 (8.5-10.1) mg/dL Total Bilirubin 0.2 (0.2-1.0) mg/dL AST 16 (15-37) U/L ALT 18 (12-78) U/L Alkaline Phosphatase 132 H (46-116) U/L Troponin I 0.141 H* (0.000-0.056) ng/mL Total Protein 7.0 (6.4-8.2) g/dL Albumin 3.2 L (3.4-5.0) g/dL Globulin 3.8 H (2.3-3.5) g/dL Albumin/Globulin Ratio 0.8 L (1.2-2.2) Urine Color Urine Appearance Urine pH (4.5-8.0) Ur Specific [place] (1.008-1.030) Urine Protein (NEGATIVE) mg/dL Urine Glucose (UA) (NEGATIVE) mg/dL Urine Ketones (NEGATIVE) mg/dL Urine Occult Blood (NEGATIVE) Urine Nitrite (NEGATIVE) Urine Bilirubin (NEGATIVE) Urine Urobilinogen (NORMAL) mg/dL Ur Leukocyte Esterase (NEGATIVE) Urine RBC (0-5) Urine WBC (0-5) Ur Epithelial Cells Amorphous Sediment Urine Bacteria Urine Mucus 01/12/19 Range/Units 01:08 WBC (4.5-11.0) K/uL RBC (3.30-5.50) M/uL Hgb (12.0-15.0) g/dL Hct (36.0-48.0) % MCV (80-98) fL MCH (27-31) pg MCHC (32-36) % Plt Count (150-400) K/uL Neut % (Auto) (36-66) % Lymph % (Auto) (24-44) % [place] % (Auto) (2-6) % Eos % (Auto) (2-4) % Baso % (Auto) (0-1) % Sodium (140-148) mmol/L Potassium (3.6-5.2) mmol/L Chloride (100-108) mmol/L Carbon Dioxide (21-32) mmol/L Anion Gap (5.0-14.0) mmol/L BUN (7-18) mg/dL Creatinine (0.6-1.0) mg/dL Est Cr Clr Drug Dosing mL/min Estimated GFR (MDRD) (>60) Glucose (74-106) mg/dL Calcium (8.5-10.1) mg/dL Total Bilirubin (0.2-1.0) mg/dL AST (15-37) U/L ALT (12-78) U/L Alkaline Phosphatase (46-116) U/L Troponin I (0.000-0.056) ng/mL Total Protein (6.4-8.2) g/dL Albumin (3.4-5.0) g/dL Globulin (2.3-3.5) g/dL Albumin/Globulin Ratio (1.2-2.2) Urine Color Yellow Urine Appearance Slightly cloudy Urine pH 5.0 (4.5-8.0) Ur Specific [place] 1.015 (1.008-1.030) Urine Protein Trace (NEGATIVE) mg/dL Urine Glucose (UA) Normal (NEGATIVE) mg/dL Urine Ketones Negative (NEGATIVE) mg/dL Urine Occult Blood Moderate (NEGATIVE) Urine Nitrite Negative (NEGATIVE) Urine Bilirubin Negative (NEGATIVE) Urine Urobilinogen Normal (NORMAL) mg/dL Ur Leukocyte Esterase Moderate (NEGATIVE) Urine RBC 0-5 (0-5) Urine WBC 20-30 H (0-5) Ur Epithelial Cells Few Amorphous Sediment Not seen Urine Bacteria Few Urine Mucus Not seen Med Orders - Current: Current Medications Acetaminophen (Tylenol) 650 mg PO BID PRN PRN Reason: Pain (moderate 4-6) Last Admin: 01/12/19 01:23 Dose: 650 mg Furosemide (Lasix) 20 mg PO DAILY [facility] Last Admin: 01/12/19 08:48 Dose: 20 mg Isosorbide Dinitrate (Isordil) 10 mg PO BID [facility] Last Admin: 01/12/19 08:42 Dose: 10 mg Levothyroxine Sodium (Synthroid) 88 mcg PO ACBREAKFAST [facility] Last Admin: 01/12/19 08:33 Dose: 88 mcg Olanzapine (Zyprexa) 2.5 mg PO BID [facility] Pantoprazole Sodium (Protonix) 40 mg PO ACBREAKFAST [facility] Last Admin: 01/12/19 08:29 Dose: 40 mg Sodium Chloride (Saline Flush) 10 ml FLUSH ASDIRECTED PRN PRN Reason: Keep Vein Open Spironolactone (Aldactone) 25 mg PO DAILY [facility] Last Admin: 01/12/19 08:41 Dose: 25 mg Venlafaxine HCl (Effexor Xr) 225 mg PO DAILY [facility] Last Admin: 01/12/19 08:41 Dose: 225 mg Discontinued Medications Aspirin (Aspirin) 324 mg PO ONETIME ONE Stop: 01/11/19 21:27 Last Admin: 01/11/19 21:57 Dose: 324 mg - Exam General: Moderate Distress HEENT: Pupils Equal, Pupils Reactive, EOMI, Mucous Membr. Moist/[place] Neck: Supple Lungs: Clear to Auscultation, Normal Respiratory Effort Cardiovascular: Regular Rate, Regular Rhythm GI/Abdominal Exam: Normal Bowel Sounds, Soft, Non-Tender, No Organomegaly, No Distention, No Abnormal Bruit, No Mass, Pelvis Stable Extremities: Limited Range of Motion, Other (She has a difficult time moving her right leg but was able to walk with a walker to the bathroom with the nurse holding her as she is very unsteady in her feet.) Peripheral Pulses: 1+: Radial (L), Radial (R) Psy/Mental Status: Anxious, Agitated - Problem List Review Problem List Initiated/Reviewed/Updated: Yes - My Orders Last 24 Hours: My Active Orders 01/11/19 23:46 Ambulate [RC] QID Height and Weight [RC] UPON Up With Assistance [RC] ASDIRECTED Up to Chair [RC] QID Sodium Chloride 0.9% [Saline Flush] 10 ml FLUSH ASDIRECTED PRN Saline Lock Insert [OM.PC] Routine Resuscitation Status Routine 01/11/19 23:47 Patient Status [ADT] Routine Oxygen Therapy [RC] PRN VTE/DVT Education [RC] Per Unit Routine Vital Signs [RC] Q4H 01/11/19 23:49 Intake and Output [RC] QSHIFT Antiembolic Hose [OM.PC] Per Unit Routine 01/11/19 23:50 Acetaminophen [Tylenol] 650 mg PO BID PRN 01/12/19 07:30 Levothyroxine [Synthroid] 88 mcg PO ACBREAKFAST Pantoprazole [ProTONIX] 40 mg PO ACBREAKFAST 01/12/19 09:00 Furosemide [Lasix] 20 mg PO DAILY Isosorbide Dinitrate [Isordil] 10 mg PO BID Spironolactone [Aldactone] 25 mg PO DAILY Venlafaxine [Effexor XR] 225 mg PO DAILY 01/12/19 14:35 PT Evaluation and Treatment [CONS] Routine 01/12/19 21:00 OLANZapine [ZyPREXA] 2.5 mg PO BID 01/12/19 Breakfast Regular Diet [DIET] - Plan Plan:: Assessment/Plan #1. Angina: There is elevation of Trop. without EKG change LBBB. She was on telemetry this was stopped as this was no problem. #2. ASHD She has a history of CABS and angiograms showing arthrosclerosis. #3. 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 She is able to walk but very difficult lately and not safe. #4. History of seizures. Continue with Divalproex 250 mg twice daily if she will consent to take this. #5. Hypothyroidism Continue with Levothyroxine 88mcg/day #6. CRF #7. Depression: Continue with Venlafaxine 75 mg daily #8. Anxiety: Continue with Xanax prn. #9 GERD: Continue with Pantoprazole 40 mg daily. #10. Fibromyalgia: Takes Tramadol 50 mg daily prn in the past this has been stopped. #11. Hypersomnia- Med induced possibly Tramadol. #12. Allergies to Duragesic, Lyrica, Ciprofloxacin, Dilaudid, Fentanyl, Hydrocodone-ibuprofen, Morphine, Lorcet, Sulfa, Latex She is very upset wanting to go home but I feel that she is not safe to go home. I tried to have a psych evaluation but there is not one available at the present time. Physical therapy will evaluate her tomorrow. I also have started her on nitroglycerin we'll need to watch her blood pressure. We cannot tolerate low blood pressure and repeat blood pressure today was 134/55. We will decide tomorrow if he is safe for her to go home. She is very upset using bad language talking to her . I started her on Zyprexa 2.5 mg twice daily to see if this will allow us to give her proper care. Certainly she is very upset presently and is not in any position to go home as her cannot take care of her and he says she is very verbal abusive to him and he is elderly.
[2019-01-12] MEDS: OLANZapine 5 MG Tab PO SCH (21:07)
[2019-01-13] MEDS: Pantoprazole 40 MG Tab.CR PO SCH (07:24)
[2019-01-13] MEDS: Levothyroxine 88 MCG Tab PO SCH (07:25)
[2019-01-13] MEDS: Venlafaxine 75 MG Cap.ER PO SCH (09:15)
[2019-01-13] MEDS: OLANZapine 5 MG Tab PO SCH ×2 (09:16→21:23)
[2019-01-13] MEDS: Spironolactone 25 MG Tab PO SCH (09:17)
[2019-01-13] MEDS: Isosorbide Dinitrate 10 MG Tab PO SCH ×2 (09:17→21:23)
[2019-01-13] MEDS: Furosemide 20 MG Tab PO SCH (09:18)
[2019-01-13] MEDS: Sodium Chloride 0.9% 10 ML Syringe FLUSH PRN (09:21)
[2019-01-13] MEDS: Acetaminophen 325 MG Tab PO PRN (13:15)
--- NOTE | 2019-01-13 17:15 | PCM.PN ---
- General Info Date of Service: 01/13/19 Subjective Update: Imani is in a much better mood today. She realizes that she is unsteady in her feet and agrees to go to the senior care at the end of our discussion with the physical therapist and her family was present. - Review of Systems General: Reports: Weakness, Fatigue HEENT: Reports: No Symptoms Pulmonary: Reports: No Symptoms Cardiovascular: Reports: No Symptoms Gastrointestinal: Reports: No Symptoms Genitourinary: Reports: No Symptoms Musculoskeletal: Reports: Joint Pain Skin: Reports: No Symptoms Neurological: Reports: Difficulty Walking, Weakness, Gait Disturbance, Other ( left-sided weakness is now worse than it was 2 weeks ago.) Psychiatric: Reports: Anxiety - Patient Data Vitals - Most Recent: Last Vital Signs Temp 96.9 F 01/13/19 14:01 Pulse 84 01/13/19 14:01 Resp 16 01/13/19 14:01 BP 119/82 01/13/19 14:01 Pulse Ox 94 L 01/13/19 14:01 Weight - Most Recent: 138 lb I&O - Last 24 Hours: Intake & Output 01/13/19 01/13/19 01/13/19 06:59 14:59 22:59 Intake Total 680 Balance 680 Med Orders - Current: Current Medications Acetaminophen (Tylenol) 650 mg PO BID PRN PRN Reason: Pain (moderate 4-6) Last Admin: 01/13/19 13:15 Dose: 650 mg Furosemide (Lasix) 20 mg PO DAILY [facility] Last Admin: 01/13/19 09:18 Dose: 20 mg Isosorbide Dinitrate (Isordil) 10 mg PO BID [facility] Last Admin: 01/13/19 09:17 Dose: 10 mg Levothyroxine Sodium (Synthroid) 88 mcg PO ACBREAKFAST [facility] Last Admin: 01/13/19 07:25 Dose: 88 mcg Olanzapine (Zyprexa) 2.5 mg PO BID [facility] Last Admin: 01/13/19 09:16 Dose: 2.5 mg Pantoprazole Sodium (Protonix) 40 mg PO ACBREAKFAST [facility] Last Admin: 01/13/19 07:24 Dose: 40 mg Sodium Chloride (Saline Flush) 10 ml FLUSH ASDIRECTED PRN PRN Reason: Keep Vein Open Last Admin: 01/13/19 09:21 Dose: 10 ml Spironolactone (Aldactone) 25 mg PO DAILY [facility] Last Admin: 01/13/19 09:17 Dose: 25 mg Venlafaxine HCl (Effexor Xr) 225 mg PO DAILY [facility] Last Admin: 01/13/19 09:15 Dose: 225 mg Discontinued Medications Aspirin (Aspirin) 324 mg PO ONETIME ONE Stop: 01/11/19 21:27 Last Admin: 01/11/19 21:57 Dose: 324 mg - Exam General: Alert, Oriented HEENT: Pupils Equal, Pupils Reactive, EOMI, Mucous Membr. Moist/[place] Neck: Supple Lungs: Clear to Auscultation, Normal Respiratory Effort Cardiovascular: Regular Rate, Regular Rhythm GI/Abdominal Exam: Normal Bowel Sounds, Soft, Non-Tender, No Organomegaly, No Distention, No Abnormal Bruit, No Mass, Pelvis Stable Back Exam: Normal Inspection Extremities: Joint Swelling, Other (evident symptoms of the cerebrovascular accident that she had in 2001 and now involves the left side as well) Peripheral Pulses: 1+: Brachial (L), Brachial (R) Skin: Warm, Dry, Intact Neurological: Other (on equal strength with difficulty movement of the right foot which is chronic and now weakness and nonsteady in the left foot, leg.) Psy/Mental Status: Anxious - Problem List Review Problem List Initiated/Reviewed/Updated: Yes - My Orders Last 24 Hours: My Active Orders 01/12/19 21:00 OLANZapine [ZyPREXA] 2.5 mg PO BID - Plan Plan:: Assessment/Plan #1. Angina: Resolved presently There is elevation of Trop. without EKG change LBBB. She was on telemetry this was stopped as this was no problem. #2. ASHD She has a history of CABS and angiograms showing arthrosclerosis. #3. 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 She is able to walk but very difficult lately and not safe. #4. History of seizures. Continue with Zyprexa 2.5 twice daily. There is dramatic improvement in her attitude today versus yesterday. #5. Hypothyroidism Continue with Levothyroxine 88mcg/day #6. CRF #7. Depression: Continue with Venlafaxine 75 mg daily #8. Anxiety: Continue with Xanax prn. #9 GERD: Continue with Pantoprazole 40 mg daily. #10. Fibromyalgia: Takes Tramadol 50 mg daily prn in the past this has been stopped. #11. Hypersomnia- Med induced possibly Tramadol. #12. Allergies to Duragesic, Lyrica, Ciprofloxacin, Dilaudid, Fentanyl, Hydrocodone-ibuprofen, Morphine, Lorcet, Sulfa, Latex She has agreed willingly to go to the senior care for therapy as she realizes the danger if she falls she could break a hip and or have a permanent injury to her head causing more disability or . She will obtain physical therapy and will hopefully have her room for her tomorrow to be transferred to [facility]. Her blood pressure is good control 134 systolic.
[2019-01-14] MEDS: Pantoprazole 40 MG Tab.CR PO SCH (07:18)
[2019-01-14] MEDS: Levothyroxine 88 MCG Tab PO SCH (07:18)
[2019-01-14] MEDS: Acetaminophen 325 MG Tab PO PRN ×3 (07:19→21:17)
[2019-01-14] MEDS: Sodium Chloride 0.9% 10 ML Syringe FLUSH PRN (07:28)
[2019-01-14] MEDS: OLANZapine 5 MG Tab PO SCH ×2 (10:04→20:51)
[2019-01-14] MEDS: Furosemide 20 MG Tab PO SCH (10:05)
[2019-01-14] MEDS: Spironolactone 25 MG Tab PO SCH (10:05)
[2019-01-14] MEDS: Venlafaxine 75 MG Cap.ER PO SCH (10:05)
[2019-01-14] MEDS: Isosorbide Dinitrate 10 MG Tab PO SCH ×2 (10:06→20:51)
--- NOTE | 2019-01-14 15:32 | PCM.PN ---
- General Info Date of Service: 01/14/19 Functional Status: Reports: Pain Controlled - Review of Systems General: Reports: Weakness Pulmonary: Reports: No Symptoms Cardiovascular: Reports: No Symptoms Gastrointestinal: Reports: No Symptoms Genitourinary: Reports: No Symptoms Musculoskeletal: Reports: No Symptoms Skin: Reports: No Symptoms Neurological: Reports: Difficulty Walking, Weakness, Gait Disturbance Psychiatric: Reports: Anxiety - Patient Data Vitals - Most Recent: Last Vital Signs Temp 97.5 F 01/14/19 15:00 Pulse 78 01/14/19 15:00 Resp 18 01/14/19 15:00 BP 110/45 L 01/14/19 15:00 Pulse Ox 94 L 01/14/19 15:00 Weight - Most Recent: 138 lb I&O - Last 24 Hours: Intake & Output 01/14/19 01/14/19 01/14/19 06:59 14:59 22:59 Intake Total 300 Output Total 800 Balance -800 300 Med Orders - Current: Current Medications Acetaminophen (Tylenol) 650 mg PO BID PRN PRN Reason: Pain (moderate 4-6) Last Admin: 01/14/19 07:19 Dose: 650 mg Furosemide (Lasix) 20 mg PO DAILY [facility] Last Admin: 01/14/19 10:05 Dose: 20 mg Isosorbide Dinitrate (Isordil) 10 mg PO BID [facility] Last Admin: 01/14/19 10:06 Dose: 10 mg Levothyroxine Sodium (Synthroid) 88 mcg PO ACBREAKFAST [facility] Last Admin: 01/14/19 07:18 Dose: 88 mcg Olanzapine (Zyprexa) 2.5 mg PO BID [facility] Last Admin: 01/14/19 10:04 Dose: 2.5 mg Pantoprazole Sodium (Protonix) 40 mg PO ACBREAKFAST [facility] Last Admin: 01/14/19 07:18 Dose: 40 mg Sodium Chloride (Saline Flush) 10 ml FLUSH ASDIRECTED PRN PRN Reason: Keep Vein Open Last Admin: 01/14/19 07:28 Dose: 10 ml Spironolactone (Aldactone) 25 mg PO DAILY [facility] Last Admin: 01/14/19 10:05 Dose: 25 mg Venlafaxine HCl (Effexor Xr) 225 mg PO DAILY [facility] Last Admin: 01/14/19 10:05 Dose: 225 mg Discontinued Medications Aspirin (Aspirin) 324 mg PO ONETIME ONE Stop: 01/11/19 21:27 Last Admin: 01/11/19 21:57 Dose: 324 mg - Exam General: Alert HEENT: Pupils Equal, Pupils Reactive, EOMI, Mucous Membr. Moist/[place] Neck: Supple Lungs: Clear to Auscultation, Normal Respiratory Effort Cardiovascular: Regular Rate, Regular Rhythm GI/Abdominal Exam: Normal Bowel Sounds, Soft, Non-Tender, No Organomegaly, No Distention, No Abnormal Bruit, No Mass, Pelvis Stable Peripheral Pulses: 1+: Carotid (L), Carotid (R), Radial (L), Radial (R) Skin: Warm (speech is difficult), Dry, Intact - Problem List Review Problem List Initiated/Reviewed/Updated: Yes - My Orders Last 24 Hours: My Active Orders 01/14/19 10:11 Consult to Speech Language Pathology [PATIENT CARE DIRECTOR Evaluation and Treatment] [CONS] Routine OT Evaluation and Treatment [CONS] Routine - Plan Plan:: Assessment/Plan #1. Angina: Resolved presently There is elevation of Trop. without EKG change LBBB. She was on telemetry this was stopped as this was no problem. #2. ASHD She has a history of CABS and angiograms showing arthrosclerosis. #3. 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 She is able to walk but very difficult lately and not safe. #4. History of seizures. Continue with Zyprexa 2.5 twice daily. There is dramatic improvement in her attitude today versus yesterday. #5. Hypothyroidism Continue with Levothyroxine 88mcg/day #6. CRF #7. Depression: Continue with Venlafaxine 75 mg daily #8. Anxiety: Continue with Xanax prn. #9 GERD: Continue with Pantoprazole 40 mg daily. #10. Fibromyalgia: Takes Tramadol 50 mg daily prn in the past this has been stopped. #11. Hypersomnia- Med induced possibly Tramadol. #12. Allergies to Duragesic, Lyrica, Ciprofloxacin, Dilaudid, Fentanyl, Hydrocodone-ibuprofen, Morphine, Lorcet, Sulfa, Latex She has agreed willingly to go [facility] the jail for therapy as she realizes the danger if she falls she could break a hip and or have a permanent injury to her head causing more disability or . She will obtain physical therapy and will hopefully have her room for her tomorrow to be transferred to [facility]. She will be going to the jail in the morning.
[2019-01-14] MEDS: Polyethylene Glycol 3350 Powder 17 GM Packet PO PRN (20:50)
[2019-01-15] MEDS: Pantoprazole 40 MG Tab.CR PO SCH (07:23)
[2019-01-15] MEDS: Levothyroxine 88 MCG Tab PO SCH (07:25)
[2019-01-15] MEDS: Isosorbide Dinitrate 10 MG Tab PO SCH ×2 (09:27→21:09)
[2019-01-15] MEDS: Spironolactone 25 MG Tab PO SCH (09:27)
[2019-01-15] MEDS: Venlafaxine 75 MG Cap.ER PO SCH (09:30)
[2019-01-15] MEDS: OLANZapine 5 MG Tab PO SCH ×2 (09:30→21:08)
[2019-01-15] MEDS: Furosemide 20 MG Tab PO SCH (09:30)
[2019-01-15] MEDS: Acetaminophen 325 MG Tab PO PRN ×2 (11:18→21:30)
[2019-01-15] MEDS: Polyethylene Glycol 3350 Powder 17 GM Packet PO PRN (11:26)
--- NOTE | 2019-01-15 12:54 | PCM.PN ---
- General Info Date of Service: 01/15/19 Subjective Update: Ms. Juarez is an 88-year-old woman who I been asked to see and assume care by Dr. Gomez her primary care physician. She was admitted to this facility because of symptoms of chest pain, EKG showed no acute ST segment changes. Troponin level modestly elevated but was felt be secondary to her underlying chronic kidney disease. She has had no further symptoms of chest pain. She fell approximately 9 days ago and since then has had significant difficulty with ambulation. She is status post left CVA with residual right-sided weakness and expressive aphasia. Since the fall she has had increased pain in her left had and marked difficulty with ambulation. She has pain in her right thigh and groin on moving her right leg. She denies significant pain with standing but feels very weak and requires assistance of 2 for transfers and ambulation. She' s felt more weak and shaky today, with lightheadedness on attempted standing. Plan had been for discharge to the assisted today. Functional Status: Reports: Tolerating Diet, Urinating - Review of Systems General: Reports: Weakness. Denies: Fever, Chills Pulmonary: Reports: No Symptoms Cardiovascular: Reports: Lightheadedness. Denies: Chest Pain, Palpitations, Dyspnea on Exertion, Orthopnea, PND, Edema Gastrointestinal: Reports: No Symptoms Musculoskeletal: Reports: Leg Pain (Right hip and groin) - Patient Data Vitals - Most Recent: Last Vital Signs Temp 97.7 F 01/15/19 11:18 Pulse 81 01/15/19 11:15 Resp 16 01/15/19 11:15 BP 125/60 01/15/19 11:15 Pulse Ox 94 L 01/15/19 11:15 Weight - Most Recent: 125 lb 3.2 oz I&O - Last 24 Hours: Intake & Output 01/14/19 01/15/19 01/15/19 22:59 06:59 14:59 Intake Total 900 320 Balance 900 320 Med Orders - Current: Current Medications Acetaminophen (Tylenol) 650 mg PO Q6H PRN PRN Reason: Pain (moderate 4-6) Last Admin: 01/15/19 11:18 Dose: 650 mg Furosemide (Lasix) 20 mg PO DAILY [facility] Last Admin: 01/15/19 09:30 Dose: 20 mg Isosorbide Dinitrate (Isordil) 10 mg PO BID [facility] Last Admin: 01/15/19 09:27 Dose: 10 mg Levothyroxine Sodium (Synthroid) 88 mcg PO ACBREAKFAST [facility] Last Admin: 01/15/19 07:25 Dose: 88 mcg Olanzapine (Zyprexa) 2.5 mg PO BID [facility] Last Admin: 01/15/19 09:30 Dose: 2.5 mg Pantoprazole Sodium (Protonix) 40 mg PO ACBREAKFAST [facility] Last Admin: 01/15/19 07:23 Dose: 40 mg Polyethylene Glycol (Miralax) 17 gm PO BEDTIME PRN PRN Reason: Constipation Last Admin: 01/15/19 11:26 Dose: 17 gm Sodium Chloride (Saline Flush) 10 ml FLUSH ASDIRECTED PRN PRN Reason: Keep Vein Open Last Admin: 01/14/19 07:28 Dose: 10 ml Spironolactone (Aldactone) 25 mg PO DAILY [facility] Last Admin: 01/15/19 09:27 Dose: 25 mg Venlafaxine HCl (Effexor Xr) 225 mg PO DAILY [facility] Last Admin: 01/15/19 09:30 Dose: 225 mg Discontinued Medications Acetaminophen (Tylenol) 650 mg PO BID PRN PRN Reason: Pain (moderate 4-6) Last Admin: 01/14/19 07:19 Dose: 650 mg Aspirin (Aspirin) 324 mg PO ONETIME ONE Stop: 01/11/19 21:27 Last Admin: 01/11/19 21:57 Dose: 324 mg - Exam General: Alert, Cooperative, Moderate Distress Lungs: Clear to Auscultation, Normal Respiratory Effort Cardiovascular: Regular Rate, Regular Rhythm, No Murmurs GI/Abdominal Exam: Soft, Non-Tender, No Organomegaly, No Distention Extremities: Leg Pain (Pain and tenderness to palpation right thigh and groin, no pain with passive range of motion) Skin: Warm, Dry - Problem List Review Problem List Initiated/Reviewed/Updated: Yes - My Orders Last 24 Hours: My Active Orders 01/15/19 11:27 Brain wo Cont [MR] Stat Hip wo Cont Rt [CT] Stat - Plan Plan:: ASSESSMENT AND PLAN RIGHT HIP AND GROIN PAIN-she has experienced this since her fall 9 days ago and has had marked difficulty with ambulation that she had not previously experienced. 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 At the time of this admission I do not reasonably expected evaluation and management of this problem will require more than a 96 hour hospital stay. DISPOSITION-anticipate discharge to home after the hospital stay. PRIMARY CARE PROVIDER-Dr. Michael Gomez
[2019-01-15] MEDS ORDERED: Sodium Phosphate,Monobasic/Sodium Phosphate,Dibasic Enema 133 ML Bottle RECTAL PRN (13:07)
[2019-01-15] MEDS ORDERED: Bisacodyl 10 MG Supp RECTAL ONE (13:07)
[2019-01-15] MEDS ORDERED: Enoxaparin 40 MG/0.4 ML Syringe SUBCUT SCH (13:30)
--- NOTE | 2019-01-15 13:43 | CRLMR ---
INDICATION: Fall. Headache. TECHNIQUE: Multiplanar multisequence noncontrast MR images were obtained through the brain. COMPARISON: CT brain 01/09/2019. FINDINGS: Artifact degrades the T2 FLAIR sequence. Small area of cortically based high diffusion signal and T2 FLAIR hyperintensity within the posterior parasagittal left parietal lobe demonstrating hypointense/isointense ADC signal. Large chronic infarction centered with left parietal lobe with extension into the posterior left frontal lobe, left thalamus, and left striatocapsular region. Associated ex vacuo dilatation of the left lateral ventricle. Mild diffuse cerebral volume loss. No mass effect or midline shift. Scattered and patchy T2 FLAIR hyperintensity in the supratentorial white matter, favored to represent sequelae of mild chronic microvascular ischemic changes. No intracranial hemorrhage or pathologic extra-axial fluid collection. The major arterial flow voids of the skullbase are preserved. Thinning of the ocular lenses. Mild mucosal thickening in the ethmoid air cells. Trace fluid in the right mastoid air cells. IMPRESSION: 1. Small area of cortically based diffusion restriction within the posterior parasagittal left parietal lobe, compatible with acute to subacute infarction. 2. Large chronic infarction centered within the left parietal lobe with extension into the posterior left frontal lobe, left thalamus, and left striatocapsular region. 3. Mild chronic microvascular ischemic changes. 4. Mild diffuse cerebral volume loss. Dictated by Thuan Shah MD @ Jan 15 2019 1:20PM Signed by Dr. Thuan Shah @ Jan 15 2019 1:41PM
[2019-01-15] MEDS: Aspirin 81 MG Tab.EC PO SCH (14:24)
[2019-01-15] MEDS: Polyethylene Glycol 3350 Powder 17 GM Packet PO SCH (14:28)
--- NOTE | 2019-01-15 16:45 | CRLCT ---
HISTORY: Right hip pain, fall. TECHNIQUE: Noncontrast CT of the pelvis and right hip. COMPARISON: CT from 05/22/2009. FINDINGS: There is no acute pelvic or proximal femoral fracture. Degenerative changes of the hips bilaterally. Degenerative changes of the pubic symphysis and sacroiliac joints. Degenerative disc and joint disease within the lumbar spine. Remote pars defects at L5 with ankylosis across the L5-S1 disc space. No fluid collection or space-occupying hematoma. Vascular calcifications. IMPRESSION: 1. No acute pelvic or proximal femoral fracture. 2. Degenerative changes. 3. No fluid collection or space-occupying hematoma. Dictated by Prince Perez MD @ 01/15/2019 4:43:04 PM Please note that all CT scans at this facility use dose modulation, iterative reconstruction, and/or weight-based dosing when appropriate to reduce radiation dose to as low as reasonably achievable. Dictated by: Prince Perez MD @ 01/15/2019 16:43:09 (Electronically Signed)
[2019-01-16] MEDS: Pantoprazole 40 MG Tab.CR PO SCH (07:25)
[2019-01-16] MEDS: Levothyroxine 88 MCG Tab PO SCH (07:25)
[2019-01-16 07:38] VITALS: BP 127/47
--- NOTE | 2019-01-16 08:31 | PCM.DCSUM1 ---
Discharge Summary - Hospital Course Brief History: Ms. Juarez is an 88-year-old woman who was admitted through the emergency department with weakness and chest pain. - Discharge Data Discharge Date: 01/16/19 Discharge Disposition: DC/Tfer to SNF 03 Condition: Fair - Discharge Diagnosis/Problem(s) (1) CVA (cerebral vascular accident) SNOMED Code(s): 847391582 ICD Code: I63.9 - CEREBRAL INFARCTION, UNSPECIFIED Status: Acute Current Visit: Yes (2) Chest pain, atypical SNOMED Code(s): 602208860 ICD Code: R07.89 - OTHER CHEST PAIN Status: Acute Current Visit: Yes (3) Seizure disorder as sequela of cerebrovascular accident SNOMED Code(s): 331780957926008 ICD Code: I69.398 - OTHER SEQUELAE OF CEREBRAL INFARCTION; G40.909 - EPILEPSY , UNSP, NOT INTRACTABLE, WITHOUT STATUS EPILEPTICUS Status: Chronic Current Visit: No - Patient Summary/Data Consults: Consultations 01/12/19 14:35 PT Evaluation and Treatment [CONS] Routine Please Evaluate and Treat. PT Reason for Consult: Strengthening Pending Discharge: Yes Discharge Disposition: Home w Outpatient Therapy Special Instructions: Home with Home Care versus SNF This query below is only for informational purposes and is not editable. Admission Diagnosis/Problem: Angina 01/14/19 10:11 Consult to Speech Language Pathology [[employer]ANER AND TRIMMER Evaluation and Treatment] [CONS] Routine Please Evaluate and Treat [employer]MER Reason for Consult: Oral Motor Pending Discharge: Yes This query below is only for informational purposes and is not editable. Admission Diagnosis/Problem: Angina OT Evaluation and Treatment [CONS] Routine Please Evaluate and Treat. OT Reason for Consult: Discharge Planning This query below is only for informational purposes and is not editable. Admission Diagnosis/Problem: Angina Hospital Course: Ms. Juarez is an 88-year-old woman who is admitted through the emergency department for further evaluation management of chest pain and weakness. She had experienced a fall approximately a few days prior to this admission and since then it had more difficulty with ambulation. She had developed chest pain during the day of admission, on evaluation this was felt to be fairly atypical. She had a recent admission after her fall and had been discharged home. Troponin had been noted to be modestly elevated during that admission and was again found to be modestly admission. This was felt to represent a chronic finding and further troponin levels were not obtained. She had no further symptoms of chest pain or pressure following admission. She has a known history of previous left-sided CVA with residual right-sided weakness. CT scan of the head without contrast was obtained in the emergency department and showed no acute findings, but did document the previous large left-sided CVA. During hospital stay she reported ongoing pain in her right lateral hip and groin. CT scan was obtained and showed no evidence of fracture or hematoma. Ongoing pain was felt to be related to a soft tissue injury from her previous fall. Because of ongoing difficulty with weakness and difficulty with ambulation MRI with contrast was obtained and did document a small new CVA in the left parietal region. This was felt to be the underlying cause of her weakness and difficulty with ambulation. She was started on aspirin 162 mg daily. She will be discharged to the intermediate with restorative physical therapy and occupational therapy. Follow-up at the intermediate with Dr. Gomez will be as needed. She was seen and followed by physical therapy throughout her hospital stay. Activity will be as tolerated and she will be on a regular diet. - Patient Instructions Diet: Usual Diet as Tolerated Activity: As Tolerated Other/Special Instructions: Discharge to intermediate for restorative physical therapy and occupational therapy. Follow-up at the intermediate with Dr. Gomez as needed. - Discharge Plan *PRESCRIPTION DRUG MONITORING PROGRAM REVIEWED*: Not Applicable *COPY OF PRESCRIPTION DRUG MONITORING REPORT IN PATIENT HAILEE: Not Applicable Prescriptions/Med Rec: OLANZapine [ZyPREXA] 2.5 mg PO BID #60 tablet Home Medications: Home Meds Levothyroxine [Synthroid] 88 mcg PO DAILY 05/28/13 [History] ALPRAZolam [Xanax] 1 mg PO BID 05/29/13 [History] Pantoprazole Sodium [Protonix] 40 mg PO DAILY 02/28/15 [History] Acetaminophen 650 mg PO BID PRN 12/30/16 [History] Acetaminophen [Tylenol] 325 mg PO TID 05/07/17 [History] Furosemide [Lasix] 20 mg PO DAILY tablet 05/12/17 [Rx] Spironolactone [Aldactone] 25 mg PO DAILY tablet 05/13/17 [Rx] Venlafaxine HCl [Venlafaxine ER] 225 mg PO DAILY 01/09/19 [History] Aspirin [Halfprin] 162 mg PO DAILY #0 tab.ec 04/20/19 [Rx] OLANZapine [ZyPREXA] 2.5 mg PO BID #60 tablet 01/16/19 [Rx] Referrals: Michael Gomez Sr, MD [Physician] - - Discharge Summary/Plan Comment DC Time >30 min.: No - Patient Data Vitals - Most Recent: Last Vital Signs Temp 98 F 01/16/19 07:37 Pulse 63 01/16/19 07:37 Resp 16 01/16/19 07:37 BP 127/47 L 01/16/19 07:37 Pulse Ox 93 L 01/16/19 07:37 Weight - Most Recent: 136 lb 12.8 oz I&O - Last 24 hours: Intake & Output 01/15/19 01/16/19 01/16/19 22:59 06:59 14:59 Intake Total 460 Balance 460 Med Orders - Current: Current Medications Acetaminophen (Tylenol) 650 mg PO Q6H PRN PRN Reason: Pain (moderate 4-6) Last Admin: 01/15/19 21:30 Dose: 650 mg Aspirin (Halfprin) 162 mg PO DAILY [facility] Last Admin: 01/15/19 14:24 Dose: 162 mg Enoxaparin Sodium (Lovenox) 40 mg SUBCUT Q24H [facility] Last Admin: 01/15/19 14:24 Dose: 40 mg Furosemide (Lasix) 20 mg PO DAILY [facility] Last Admin: 01/15/19 09:30 Dose: 20 mg Isosorbide Dinitrate (Isordil) 10 mg PO BID [facility] Last Admin: 01/15/19 21:09 Dose: 10 mg Levothyroxine Sodium (Synthroid) 88 mcg PO ACBREAKFAST [facility] Last Admin: 01/16/19 07:25 Dose: 88 mcg Olanzapine (Zyprexa) 2.5 mg PO BID [facility] Last Admin: 01/15/19 21:08 Dose: 2.5 mg Pantoprazole Sodium (Protonix) 40 mg PO ACBREAKFAST [facility] Last Admin: 01/16/19 07:25 Dose: 40 mg Polyethylene Glycol (Miralax) 17 gm PO DAILY [facility] Last Admin: 01/15/19 14:28 Dose: Not Given Sodium Biphosphate/Sodium Phosphate (Fleet Enema) 133 ml RECTAL ONETIME PRN PRN Reason: Constipation Sodium Chloride (Saline Flush) 10 ml FLUSH ASDIRECTED PRN PRN Reason: Keep Vein Open Last Admin: 01/14/19 07:28 Dose: 10 ml Spironolactone (Aldactone) 25 mg PO DAILY [facility] Last Admin: 01/15/19 09:27 Dose: 25 mg Venlafaxine HCl (Effexor Xr) 225 mg PO DAILY [facility] Last Admin: 01/15/19 09:30 Dose: 225 mg Discontinued Medications Acetaminophen (Tylenol) 650 mg PO BID PRN PRN Reason: Pain (moderate 4-6) Last Admin: 01/14/19 07:19 Dose: 650 mg Aspirin (Aspirin) 324 mg PO ONETIME ONE Stop: 01/11/19 21:27 Last Admin: 01/11/19 21:57 Dose: 324 mg Bisacodyl (Dulcolax) 10 mg RECTAL ONETIME ONE Stop: 01/15/19 13:08 Last Admin: 01/15/19 14:36 Dose: 10 mg Polyethylene Glycol (Miralax) 17 gm PO BEDTIME PRN PRN Reason: Constipation Last Admin: 01/15/19 11:26 Dose: 17 gm - Exam General: Reports: Alert, Oriented, Cooperative, Mild Distress Lungs: Reports: Clear to Auscultation, Normal Respiratory Effort Cardiovascular: Reports: Regular Rate, Regular Rhythm, No Murmurs GI/Abdominal Exam: Soft, Non-Tender, No Organomegaly, No Distention Extremities: Leg Pain (Tenderness to palpation right lateral thigh) Neurological: Denies: Strength Equal Bilateral (Weakness right leg and arm)
[2019-01-16] MEDS: Venlafaxine 75 MG Cap.ER PO SCH (09:25)
[2019-01-16] MEDS: Aspirin 81 MG Tab.EC PO SCH (09:25)
[2019-01-16] MEDS: OLANZapine 5 MG Tab PO SCH (09:25)
[2019-01-16] MEDS: Spironolactone 25 MG Tab PO SCH (09:26)
[2019-01-16] MEDS: Isosorbide Dinitrate 10 MG Tab PO SCH (09:26)
[2019-01-16] MEDS: Furosemide 20 MG Tab PO SCH (09:26)
[2019-01-16] MEDS: Polyethylene Glycol 3350 Powder 17 GM Packet PO SCH (09:26)
== END 2019-01-16 10:58 | DRG 302 ==
LOC: JP.ED 21:14 → JP.MS 23:46
PROVIDERS: ADMIT Internal Medicine; ATTEND Hospitalist
DX: R07.89 Other chest pain (principal); I25.10 Atherosclerotic heart disease of native coronary artery without angina pectoris; I10 Essential (primary) hypertension; I25.119 Atherosclerotic heart disease of native coronary artery with unspecified angina pectoris; I63.9 Cerebral infarction, unspecified; I69.351 Hemiplegia and hemiparesis following cerebral infarction affecting right dominant side; G81.94 Hemiplegia, unspecified affecting left nondominant side; I69.320 Aphasia following cerebral infarction; R56.9 Unspecified convulsions; I69.398 Other sequelae of cerebral infarction; G40.909 Epilepsy, unspecified, not intractable, without status epilepticus; I12.9 Hypertensive chronic kidney disease with stage 1 through stage 4 chronic kidney disease, or unspecified chronic kidney disease; F41.9 Anxiety disorder, unspecified; K21.9 Gastro-esophageal reflux disease without esophagitis; Z88.8 Allergy status to other drugs, medicaments and biological substances; G47.10 Hypersomnia, unspecified; N18.3 Chronic kidney disease, stage 3 (moderate); E03.9 Hypothyroidism, unspecified; D64.9 Anemia, unspecified; M79.7 Fibromyalgia; F32.9 Major depressive disorder, single episode, unspecified; H91.90 Unspecified hearing loss, unspecified ear; M54.9 Dorsalgia, unspecified; Z86.73 Personal history of transient ischemic attack (TIA), and cerebral infarction without residual deficits; G89.29 Other chronic pain; R61 Generalized hyperhidrosis; H54.7 Unspecified visual loss; Z88.5 Allergy status to narcotic agent; Z88.2 Allergy status to sulfonamides; Z88.1 Allergy status to other antibiotic agents; Z85.820 Personal history of malignant melanoma of skin; Z91.040 Latex allergy status; Z79.890 Hormone replacement therapy; Z79.899 Other long term (current) drug therapy; Z95.1 Presence of aortocoronary bypass graft; Z95.5 Presence of coronary angioplasty implant and graft; Z87.442 Personal history of urinary calculi; Z66 Do not resuscitate; Z91.5 Personal history of self-harm; Z85.3 Personal history of malignant neoplasm of breast; Z90.11 Acquired absence of right breast and nipple; Z96.659 Presence of unspecified artificial knee joint; Z90.49 Acquired absence of other specified parts of digestive tract
CPT/HCPCS: 36415; 70551; 71045; 73700-RT; 80053; 81001; 84484; 85025; 93005; 93010; 96105-GN; 97110-GP; 97112-GP; 97140-GP; 97163-GP; 97165-GO; 97530-GP; 97535-GP; 99285; 99285-25; A9270-GY; J1650

== ENCOUNTER 2019-06-03 10:41 | Observation (INO) | payer MEDICARE ==
--- NOTE | 2019-06-03 10:51 | EDM.PDOC ---
ED HPI GENERAL MEDICAL PROBLEM - General Chief Complaint: Neuro Symptoms/Deficits Stated Complaint: STROKE? Time Seen by Provider: 06/03/19 10:45 Source of Information: Reports: EMS, Old Records History Limitations: Reports: Other (unresponsive) - History of Present Illness INITIAL COMMENTS - FREE TEXT/NARRATIVE: 88 yo female here from her home via EMS after family checked on her this morning and found her unresponsive and still in bed. Is a no code. Has a hx of CVA. Had an appt later today or tomorrow regarding entering a [facility]. a couple weeks ago. EMS noted pinpoint pupils. BS OK via fingerstick. Onset: Unknown/Unsure Duration: Hour(s):, Constant Location: Reports: Generalized Severity: Severe Improves with: Reports: None Worsens with: Reports: None Context: Reports: Other (See HPI) Associated Symptoms: Reports: No Other Symptoms Treatments ELECTROLOGIST: Reports: Oxygen - Related Data Allergies Allergy/AdvReac Type Severity Reaction Status Date / Time ciprofloxacin HCl Allergy Rash Verified 06/03/19 10:52 [From Cipro] Latex, Natural Rubber Allergy Cannot Verified 06/03/19 10:52 Remember levofloxacin Allergy Rash Verified 06/03/19 10:52 Sulfa (Sulfonamide Allergy Rash Verified 06/03/19 10:52 Antibiotics) tramadol Allergy Confusion Verified 06/03/19 10:52 diazepam AdvReac Change Verified 06/03/19 10:52 Mental Status fentanyl AdvReac Change Verified 06/03/19 10:52 Mental Status hydrocodone [Hydrocodone] AdvReac Change Verified 06/03/19 10:52 Mental Status hydrocodone bitartrate AdvReac Change Verified 06/03/19 10:52 [From Lorcet ] Mental Status hydromorphone HCl AdvReac Change Verified 06/03/19 10:52 [From Dilaudid] Mental Status morphine AdvReac Change Verified 06/03/19 10:52 Mental Status pregabalin [From Lyrica] AdvReac Change Verified 06/03/19 10:52 Mental Status Home Meds: Home Meds Levothyroxine [Synthroid] 88 mcg PO DAILY 05/28/13 [History] ALPRAZolam [Xanax] 1 mg PO BID 05/29/13 [History] Pantoprazole Sodium [Protonix] 40 mg PO DAILY 02/28/15 [History] Acetaminophen 650 mg PO BID PRN 12/30/16 [History] Acetaminophen [Tylenol] 325 mg PO TID 05/07/17 [History] Furosemide [Lasix] 20 mg PO DAILY tablet 05/12/17 [Rx] Spironolactone [Aldactone] 25 mg PO DAILY tablet 05/13/17 [Rx] Venlafaxine HCl [Venlafaxine ER] 225 mg PO DAILY 01/09/19 [History] Aspirin [Halfprin] 162 mg PO DAILY #0 tab.ec 01/16/19 [Rx] OLANZapine [ZyPREXA] 2.5 mg PO BID #60 tablet 01/16/19 [Rx] Past Medical History HEENT History: Reports: Cataract, Hard of Hearing, Impaired Vision Other HEENT History: removed remnants of tonsils. Cardiovascular History: Reports: Bypass, CAD, Hypertension, Stents Other Cardiovascular History: cabg Respiratory History: Reports: Other (See Below) Other Respiratory History: pleural effusion this hospital stay, recent cough lasting over a month Gastrointestinal History: Reports: None Genitourinary History: Reports: None, Renal Calculus Musculoskeletal History: Reports: Back Pain, Chronic, Fibromyalgia, Other (See Below) Other Musculoskeletal History: bilat wrist pain Neurological History: Reports: CVA, Seizure, TIA, Other (See Below) Other Neuro History: CVA affecting Rt side per family Psychiatric History: Reports: Depression, Suicide Attempt, Suicidal Ideation Endocrine/Metabolic History: Reports: Hypothyroidism Hematologic History: Reports: Anemia, Blood Transfusion(s) Immunologic History: Reports: None Oncologic (Cancer) History: Reports: Basal Cell Carcinoma, Breast Other Oncologic History: Melanoma Dermatologic History: Reports: Melanoma Other Dermatologic History: healing wound to left forehead from a melanoma removal - Infectious Disease History Infectious Disease History: Reports: Chicken Pox, Measles, Mumps - Past Surgical History Cardiovascular Surgical History: Reports: Coronary Artery Bypass Respiratory Surgical History: Reports: Thoracentesis Musculoskeletal Surgical History: Reports: Knee Replacement Oncologic Surgical History: Reports: Mastectomy, Other (See Below) Other Oncologic Surgeries/Procedures: Rt side Social & Family History - Family History Family Medical History: Noncontributory HEENT: Reports: None : Reports: Other (See Below) Other Family History: son, kidney transplant Oncologic: Reports: Pancreatic, Other (See Below) Other Oncologic Family History: son from pancreatic ca - Caffeine Use Caffeine Use: Reports: Coffee Other Caffeine Use: 2-3 cups per day ED ROS GENERAL - Review of Systems Review Of Systems: Unable To Obtain (due to being unresponsive) ED EXAM, NEURO - Physical Exam Exam: See Below Exam Limited By: No Limitations General Appearance: Obtunded Eye Exam: Bilateral Eye: PERRL, Other (pupils constricted) Ears: Normal External Exam, Normal Canal Nose: Normal Inspection, No Blood Throat/Mouth: Normal Lips, No Airway Compromise Head Exam: Atraumatic, Normocephalic Neck: Normal Inspection Respiratory/Chest: No Respiratory Distress, Lungs Clear, Normal Breath Sounds, No Accessory Muscle Use Cardiovascular: Regular Rate, Rhythm, No Edema GI/Abdominal: Soft, Non-Tender, No Distention Neurological: Withdraws to Pain Extremities: Normal Inspection, Normal Range of Motion, Non-Tender, No Pedal Edema Skin Exam: Warm, Dry, Intact, Normal Color, No Rash Course - Vital Signs Text/Narrative:: Dr. Harkins called @ 1208h Last Recorded V/S: Last Vital Signs Temp 35.8 C 06/03/19 11:06 Pulse 83 06/03/19 11:12 Resp 26 H 06/03/19 11:12 BP 113/65 06/03/19 11:12 Pulse Ox 98 06/03/19 11:12 - Orders/Labs/Meds Orders: Active Orders 24 hr Category Date Time Status EKG Documentation Completion [RC] ASDIRECTED Care 06/03/19 12:08 Active EKG 12 Lead [EK] Routine Ther 06/03/19 12:08 Ordered Labs: Laboratory Tests 06/03/19 06/03/19 Range/Units 11:25 11:25 WBC 7.6 (4.5-11.0) K/uL RBC 3.58 (3.30-5.50) M/uL Hgb 10.6 L D (12.0-15.0) g/dL Hct 34.4 L (36.0-48.0) % MCV 96 (80-98) fL MCH 30 (27-31) pg MCHC 31 L (32-36) % Plt Count 253 (150-400) K/uL Sodium 138 L (140-148) mmol/L Potassium 4.0 (3.6-5.2) mmol/L Chloride 103 (100-108) mmol/L Carbon Dioxide 28 (21-32) mmol/L Anion Gap 11.0 (5.0-14.0) mmol/L BUN 15 (7-18) mg/dL Creatinine 0.8 (0.6-1.0) mg/dL Est Cr Clr Drug Dosing 34.91 mL/min Estimated GFR (MDRD) > 60 (>60) Glucose 101 (74-106) mg/dL Calcium 8.7 (8.5-10.1) mg/dL Troponin I 4.584 H* (0.000-0.056) ng/mL - Radiology Interpretation Free Text/Narrative:: CT head- IMPRESSION: 1. No acute hemorrhage or mass effect. No significant change compared to 2018. 2. Large stable area of chronic infarction in the posterior left cerebral hemisphere. CT Results Date: 06/03/19 Departure - Departure Time of Disposition: 12:25 Disposition: Admitted As Inpatient 66 Condition: Critical Clinical Impression: Unresponsive, Elevated troponin I level - Discharge Information Referrals: PCP,None [Primary Care Provider] - Forms: ED Department Discharge - My Orders Last 24 Hours: My Active Orders 06/03/19 12:08 EKG Documentation Completion [RC] ASDIRECTED EKG 12 Lead [EK] Routine - Assessment/Plan Last 24 Hours: My Active Orders 06/03/19 12:08 EKG Documentation Completion [RC] ASDIRECTED EKG 12 Lead [EK] Routine
--- NOTE | 2019-06-03 11:45 | CRLCT ---
INDICATION: 88-year-old female. Unresponsive. History of CVA. TECHNIQUE: CT images are obtained from foramen magnum to vertex without contrast. COMPARISON: CT brain on 01/09/2019. FINDINGS: Again noted is a large area of encephalomalacia in the left posterior frontal inferior parietal lobes involving the posterior left basal ganglia and internal capsule unchanged from the prior scan. No acute hemorrhage. No mass effect. Preservation of dangelo-white interface. Tiny chronic lacunar infarction in the right caudate head. No posterior fossa hemorrhage or mass effect. Dense atherosclerotic calcifications of parasellar internal carotid arteries and distal vertebral arteries. IMPRESSION: 1. No acute hemorrhage or mass effect. No significant change compared to 01/09/2019. 2. Large stable area of chronic infarction in the posterior left cerebral hemisphere. Please note that all CT scans at this facility use dose modulation, iterative reconstruction, and/or weight-based dosing when appropriate to reduce radiation dose to as low as reasonably achievable. Dictated by Kash Juarez MD @ Jun 03 2019 11:38AM Signed by Dr. Kash Juarez @ Jun 03 2019 11:43AM
--- NOTE | 2019-06-03 12:51 | PCM.HP.2 ---
H&P History of Present Illness - General Date of Service: 06/03/19 Admit Problem/Dx: Admission Diagnosis/Problem Admission Diagnosis/Problem Myocardial infarction Source of Information: Family, Provider, RN Notes Reviewed. No: Patient History Limitations: Reports: Altered Mental Status (Decreased level of consciousness) - History of Present Illness Initial Comments - Free Text/Narative: Ms. Juarez is an 88-year-old woman who was admitted through the emergency department with decreased level of consciousness secondary to acute myocardial infarction and probable neurologic event. She has a known history of cerebrovascular disease with previous CVAs. She was found this morning at home unresponsive. CT scan of the head in the emergency department shows no evidence of acute event. Of note and laboratory studies as an elevated troponin of 4.5. I discussed these findings with the family they have requested that we proceed with comfort cares only and do not want further aggressive evaluation or interventions. - Related Data Allergies/Adverse Reactions: Allergies Allergy/AdvReac Type Severity Reaction Status Date / Time ciprofloxacin HCl Allergy Rash Verified 06/03/19 10:52 [From Cipro] Latex, Natural Rubber Allergy Cannot Verified 06/03/19 10:52 Remember levofloxacin Allergy Rash Verified 06/03/19 10:52 Sulfa (Sulfonamide Allergy Rash Verified 06/03/19 10:52 Antibiotics) diazepam AdvReac Change Verified 06/03/19 10:52 Mental Status fentanyl AdvReac Change Verified 06/03/19 10:52 Mental Status hydrocodone [Hydrocodone] AdvReac Change Verified 06/03/19 10:52 Mental Status hydrocodone bitartrate AdvReac Change Verified 06/03/19 10:52 [From Lorcet ] Mental Status hydromorphone HCl AdvReac Change Verified 06/03/19 10:52 [From Dilaudid] Mental Status morphine AdvReac Change Verified 06/03/19 10:52 Mental Status pregabalin [From Lyrica] AdvReac Change Verified 06/03/19 10:52 Mental Status tramadol AdvReac Confusion Verified 06/03/19 14:06 Home Medications: Home Meds Levothyroxine [Synthroid] 88 mcg PO DAILY 05/28/13 [History] ALPRAZolam [Xanax] 1 mg PO BID 05/29/13 [History] Pantoprazole Sodium [Protonix] 40 mg PO DAILY 02/28/15 [History] Acetaminophen 650 mg PO BID PRN 12/30/16 [History] Acetaminophen [Tylenol] 325 mg PO TID 05/07/17 [History] Furosemide [Lasix] 20 mg PO DAILY tablet 05/12/17 [Rx] Spironolactone [Aldactone] 25 mg PO DAILY tablet 05/13/17 [Rx] Venlafaxine HCl [Venlafaxine ER] 225 mg PO DAILY 01/09/19 [History] Aspirin [Halfprin] 162 mg PO DAILY #0 tab.ec 01/16/19 [Rx] OLANZapine [ZyPREXA] 2.5 mg PO BID #60 tablet 01/16/19 [Rx] Past Medical History HEENT History: Reports: Cataract, Hard of Hearing, Impaired Vision Other HEENT History: removed remnants of tonsils. Cardiovascular History: Reports: Bypass, CAD, Hypertension, Stents Other Cardiovascular History: cabg Respiratory History: Reports: Other (See Below) Other Respiratory History: pleural effusion this hospital stay, recent cough lasting over a month Gastrointestinal History: Reports: None Genitourinary History: Reports: None, Renal Calculus Musculoskeletal History: Reports: Back Pain, Chronic, Fibromyalgia, Other (See Below) Other Musculoskeletal History: bilat wrist pain Neurological History: Reports: CVA, Seizure, TIA, Other (See Below) Other Neuro History: CVA affecting Rt side per family Psychiatric History: Reports: Depression, Suicide Attempt, Suicidal Ideation Endocrine/Metabolic History: Reports: Hypothyroidism Hematologic History: Reports: Anemia, Blood Transfusion(s) Immunologic History: Reports: None Oncologic (Cancer) History: Reports: Basal Cell Carcinoma, Breast Other Oncologic History: Melanoma Dermatologic History: Reports: Melanoma Other Dermatologic History: healing wound to left forehead from a melanoma removal - Infectious Disease History Infectious Disease History: Reports: Chicken Pox, Measles, Mumps - Past Surgical History Cardiovascular Surgical History: Reports: Coronary Artery Bypass Respiratory Surgical History: Reports: Thoracentesis Musculoskeletal Surgical History: Reports: Knee Replacement Oncologic Surgical History: Reports: Mastectomy, Other (See Below) Other Oncologic Surgeries/Procedures: Rt side Social & Family History - Family History Family Medical History: Noncontributory HEENT: Reports: None : Reports: Other (See Below) Other Family History: son, kidney transplant Oncologic: Reports: Pancreatic, Other (See Below) Other Oncologic Family History: son from pancreatic ca - Caffeine Use Caffeine Use: Reports: Coffee Other Caffeine Use: 2-3 cups per day H&P Review of Systems - Review of Systems: Review Of Systems: Unable To Obtain (Secondary to decreased level of consciousness) Exam - Exam Exam: See Below - Vital Signs Vital Signs: Last Vital Signs Temp 96.4 F 06/03/19 11:06 Pulse 83 06/03/19 11:12 Resp 26 H 06/03/19 11:12 BP 113/65 06/03/19 11:12 Pulse Ox 98 06/03/19 11:12 Weight: 160 lb - Exam General: Obtunded HEENT: Conjunctiva Clear, Mucosa Moist & [place], Normal Nasal Septum, Posterior Pharynx Clear, Pupils Equal, Pupils Reactive Neck: Supple, Trachea Midline, +2 Carotid Pulse wo Bruit Lungs: Clear to Auscultation, Normal Respiratory Effort Cardiovascular: Regular Rate, Regular Rhythm, Normal S1, Normal S2, Systolic Murmur. No: Diastolic Murmur GI/Abdominal Exam: Soft, Non-Tender, No Organomegaly, No Distention Extremities: Non-Tender, No Pedal Edema Skin: Warm, Dry, Intact - Patient Data Lab Results Last 24 hrs: Laboratory Results - last 24 hr 06/03/19 06/03/19 Range/Units 11:25 11:25 WBC 7.6 (4.5-11.0) K/uL RBC 3.58 (3.30-5.50) M/uL Hgb 10.6 L D (12.0-15.0) g/dL Hct 34.4 L (36.0-48.0) % MCV 96 (80-98) fL MCH 30 (27-31) pg MCHC 31 L (32-36) % Plt Count 253 (150-400) K/uL Sodium 138 L (140-148) mmol/L Potassium 4.0 (3.6-5.2) mmol/L Chloride 103 (100-108) mmol/L Carbon Dioxide 28 (21-32) mmol/L Anion Gap 11.0 (5.0-14.0) mmol/L BUN 15 (7-18) mg/dL Creatinine 0.8 (0.6-1.0) mg/dL Est Cr Clr Drug Dosing 34.91 mL/min Estimated GFR (MDRD) > 60 (>60) Glucose 101 (74-106) mg/dL Calcium 8.7 (8.5-10.1) mg/dL Troponin I 4.584 H* (0.000-0.056) ng/mL Result Diagrams: 06/03/19 11:25 06/03/19 11:25 *Q Meaningful Use (ADM) - VTE *Q VTE Anticoagulation Contraindications: Med Refused by Patient - VTE Risk Assess *Q Each Risk Factor Represents 1 Point: Obesity ( BMI > 25 kg/m2) Total Score 1 Point Risk Factors: 1 Each Risk Factor Represents 2 Points: None Total Score 2 Point Risk Factors: 0 Each Risk Factor Represents 3 Points: Age 75 Years or Greater Total Score 3 Point Risk Factors: 3 Each Risk Factor Represents 5 Points: None Total Score 5 Point Risk Factors: 0 Venous Thromboembolism Risk Factor Score *Q: 4 Problem List Initiated/Reviewed/Updated: Yes Orders Last 24hrs: Active Orders 24 hr Category Date Time Status Patient Status Manage Transfer [TRANSFER] Routine ADT 06/03/19 12:44 Ordered EKG Documentation Completion [RC] ASDIRECTED Care 06/03/19 12:08 Active Resuscitation Status Routine Resus Stat 06/03/19 12:46 Ordered EKG 12 Lead [EK] Routine Ther 06/03/19 12:08 Ordered Assessment/Plan Comment:: ASSESSMENT AND PLAN ACUTE MYOCARDIAL INFARCTION-patient unable to provide significant information because of decreased level of consciousness. Family feels strongly that it's consistent with previously expressed wishes that we not proceed with further aggressive intervention or evaluation -Comfort cares only -Morphine and lorazepam as needed for comfort DECREASED LEVEL OF CONSCIOUSNESS-suspect underlying neurologic event, family does not want to pursue further evaluation or interventions -Comfort cares only PALLIATIVE CARE-patient has not been interested in aggressive management and family is in agreement -Morphine and lorazepam as needed for comfort MAINTENANCE ISSUES -DVT prophylaxis; not indicated -GI prophylaxis; not indicated -Dumont catheter; not indicated -Nutrition; regular diet as tolerated -Nicotine dependence; not required CODE STATUS-DNR/DNI comfort cares only ADMISSION STATUS-patient will be admitted to observation status DISPOSITION-anticipate discharge to home after the hospital stay. PRIMARY CARE PROVIDER- - Mortality Measure Prognosis:: Poor
[2019-06-03] MEDS ORDERED: Sodium Chloride 0.9% 10 ML Syringe FLUSH PRN (14:00)
[2019-06-03] MEDS ORDERED: Acetaminophen 325 MG Tab PO PRN (14:00)
[2019-06-03] MEDS ORDERED: Polyethylene Glycol 3350 Powder 17 GM Packet PO PRN (14:00)
[2019-06-03] MEDS ORDERED: Ondansetron 4 MG/2 ML SDV IV PRN (14:00)
[2019-06-03] MEDS: Morphine 10 MG/0.5 ML Oral Syringe BUCCAL PRN (21:47)
[2019-06-04] MEDS: Morphine 10 MG/0.5 ML Oral Syringe BUCCAL PRN ×8 (01:17→21:57)
--- NOTE | 2019-06-04 14:07 | PCM.PN ---
- General Info Date of Service: 06/04/19 Subjective Update: Ms. Juarez is currently on comfort cares only, fairly stable with good pain control. She intermittently is more alert, unable to communicate because of garbled speech. Unable to provide meaningful information concerning symptoms or review of systems because of expressive aphasia and sedation. - Patient Data Vitals - Most Recent: Last Vital Signs Temp 98.6 F 06/04/19 08:04 Pulse 90 06/04/19 08:04 Resp 20 06/04/19 08:04 BP 116/44 L 06/04/19 08:04 Pulse Ox 91 L 06/04/19 08:04 Weight - Most Recent: 160 lb Med Orders - Current: Current Medications Acetaminophen (Tylenol) 650 mg PO Q4H PRN PRN Reason: Pain (Mild 1-3)/fever Lorazepam (Ativan Oral Concentrate 1mg/0.5 Ml U/D) 0.5 mg PO Q2H PRN PRN Reason: Anxiety Morphine Sulfate (Morphine 10 Mg/0.5 Ml Oral Syringe) 2.5 mg BUCCAL Q1H PRN PRN Reason: Pain Last Admin: 06/04/19 10:49 Dose: 2.5 mg Ondansetron HCl (Zofran) 4 mg IV Q4H PRN PRN Reason: Nausea/Vomiting Polyethylene Glycol (Miralax) 17 gm PO DAILY PRN PRN Reason: Constipation Sodium Chloride (Saline Flush) 10 ml FLUSH ASDIRECTED PRN PRN Reason: Keep Vein Open - Exam Quality Assessment: DVT Prophylaxis General: Sedated, Lethargic Lungs: Clear to Auscultation, Normal Respiratory Effort Cardiovascular: Regular Rate, Regular Rhythm, No Murmurs GI/Abdominal Exam: Soft, Non-Tender, No Organomegaly, No Distention Extremities: Non-Tender, No Pedal Edema Neurological: No: Normal Speech - Problem List Review Problem List Initiated/Reviewed/Updated: Yes - My Orders Last 24 Hours: My Active Orders 06/03/19 14:00 Patient Status [ADT] Routine Up With Assistance [RC] ASDIRECTED Vital Signs [RC] Q4H Acetaminophen [Tylenol] 650 mg PO Q4H PRN LORazepam [Ativan ORAL Concentrate 1MG/0.5 ML U/D] 0.5 mg PO Q2H PRN Morphine [Morphine 10 MG/0.5 ML Oral Syringe] 2.5 mg BUCCAL Q1H PRN Ondansetron [Zofran] 4 mg IV Q4H PRN Polyethylene Glycol 3350 [MiraLAX] 17 gm PO DAILY PRN Sodium Chloride 0.9% [Saline Flush] 10 ml FLUSH ASDIRECTED PRN Saline Lock Insert [OM.PC] Routine VTE Mechanical Contraindications [AST] Per Unit Routine VTE Pharmacological Contraindications [AST] Per Unit Routine - Plan Plan:: ASSESSMENT AND PLAN ACUTE MYOCARDIAL INFARCTION-patient unable to provide significant information because of decreased level of consciousness. Family feels strongly that it's consistent with previously expressed wishes that we not proceed with further aggressive intervention or evaluation -Comfort cares only -Morphine and lorazepam as needed for comfort DECREASED LEVEL OF CONSCIOUSNESS-she has been intermittently more alert, very garbled speech consistent with expressive aphasia -Comfort cares only PALLIATIVE CARE-patient has not been interested in aggressive management and family is in agreement -Morphine and lorazepam as needed for comfort MAINTENANCE ISSUES -DVT prophylaxis; not indicated -GI prophylaxis; not indicated -Dumont catheter; not indicated -Nutrition; regular diet as tolerated -Nicotine dependence; not required CODE STATUS-DNR/DNI comfort cares only ADMISSION STATUS-patient will be admitted to observation status DISPOSITION-anticipate discharge to home after the hospital stay. PRIMARY CARE PROVIDER-
[2019-06-04] MEDS: LORazepam ORAL Concentrate 1MG/0.5ML U/D PO PRN (14:11)
[2019-06-05] MEDS: Morphine 10 MG/0.5 ML Oral Syringe BUCCAL PRN (00:44)
[2019-06-05] MEDS: LORazepam ORAL Concentrate 1MG/0.5ML U/D PO PRN (04:27)
[2019-06-05] MEDS ORDERED: Morphine 10 MG/0.5 ML Oral Syringe BUCCAL PRN ×2 (09:35→10:44)
[2019-06-05 09:54] VITALS: BP 96/77; PULSE 81
--- NOTE | 2019-06-05 10:48 | PCM.PN ---
- General Info Date of Service: 06/05/19 Subjective Update: Ms. Juarez and shown some improvement over last 24 hours, more alert but having marked difficulty with speech secondary to expressive aphasia. Also noted to have significant right-sided weakness. She is taken in a small amount of food as well as some liquids. She appears to be very comfortable with current management. Because of expressive aphasia she is unable to provide meaningful history concerning symptoms or review of systems. - Patient Data Vitals - Most Recent: Last Vital Signs Temp 99.9 F 06/05/19 09:53 Pulse 81 06/05/19 09:53 Resp 20 06/05/19 09:53 BP 96/77 06/05/19 09:53 Pulse Ox 91 L 06/05/19 09:53 Weight - Most Recent: 160 lb I&O - Last 24 Hours: Intake & Output 06/04/19 06/05/19 06/05/19 22:59 06:59 14:59 Intake Total 240 240 Balance 240 240 Med Orders - Current: Current Medications Acetaminophen (Tylenol) 650 mg PO Q4H PRN PRN Reason: Pain (Mild 1-3)/fever Lorazepam (Ativan Oral Concentrate 1mg/0.5 Ml U/D) 0.5 mg PO Q2H PRN PRN Reason: Anxiety Last Admin: 06/05/19 04:27 Dose: 0.5 mg Ondansetron HCl (Zofran) 4 mg IV Q4H PRN PRN Reason: Nausea/Vomiting Polyethylene Glycol (Miralax) 17 gm PO DAILY PRN PRN Reason: Constipation Sodium Chloride (Saline Flush) 10 ml FLUSH ASDIRECTED PRN PRN Reason: Keep Vein Open Discontinued Medications Morphine Sulfate (Morphine 10 Mg/0.5 Ml Oral Syringe) 2.5 mg BUCCAL Q1H PRN PRN Reason: Pain Last Admin: 06/05/19 00:44 Dose: 2.5 mg Morphine Sulfate (Morphine 10 Mg/0.5 Ml Oral Syringe) 5 mg BUCCAL Q1H PRN PRN Reason: Pain Last Admin: 06/05/19 10:23 Dose: 5 mg - Exam General: Alert, Cooperative, Mild Distress Lungs: Clear to Auscultation, Normal Respiratory Effort Cardiovascular: Regular Rhythm, No Murmurs, Tachycardia GI/Abdominal Exam: Soft, Non-Tender, No Organomegaly, No Distention Extremities: Non-Tender, No Pedal Edema - Problem List Review Problem List Initiated/Reviewed/Updated: Yes - My Orders Last 24 Hours: My Active Orders 06/05/19 09:37 Urinary Catheter Assessment [RC] ASDIRECTED 06/05/19 09:45 Dumont Catheter Insertion [Insert Urinary Catheter] [OM.PC] Q24H 06/05/19 10:44 Morphine [Morphine 10 MG/0.5 ML Oral Syringe] 2.5 mg BUCCAL Q1H PRN - Plan Plan:: ASSESSMENT AND PLAN ACUTE MYOCARDIAL INFARCTION-patient unable to provide significant information because of expressive aphasia. -Comfort cares only -Morphine and lorazepam as needed for comfort ACUTE CVA-she has been intermittently more alert, very garbled speech consistent with expressive aphasia, heart right-sided weakness -Comfort cares only PALLIATIVE CARE-patient has not been interested in aggressive management and family is in agreement -Morphine and lorazepam as needed for comfort MAINTENANCE ISSUES -DVT prophylaxis; not indicated -GI prophylaxis; not indicated -Dumont catheter; will place for comfort -Nutrition; regular diet as tolerated -Nicotine dependence; not required CODE STATUS-DNR/DNI comfort cares only ADMISSION STATUS-patient will be admitted to observation status DISPOSITION-anticipate discharge to home after the hospital stay. PRIMARY CARE PROVIDER-
--- NOTE | 2019-06-05 22:15 | PCM.DCSUM1 ---
Discharge Summary - Hospital Course Brief History: Ms. Juarez was an 88-year-old woman who was admitted through the emergency department to [facility] status with decreased level of consciousness secondary to acute CVA and myocardial infarction. - Discharge Data Discharge Date: 06/05/19 Discharge Disposition: 20 Condition: - Patient Summary/Data Hospital Course: Ms. Juarez is an 88-year-old woman who was admitted through the emergency department with decreased level of consciousness secondary to acute myocardial infarction and acute CVA. She has a known history of cerebrovascular disease with previous CVAs. She was found this morning at home unresponsive. CT scan of the head in the emergency department shows no evidence of acute event. Of note and laboratory studies as an elevated troponin of 4.5. I discussed these findings with the family they have requested that we proceed with comfort cares only and do not want further aggressive evaluation or interventions. On admission all nonessential medications were discontinued. She was started on liquid morphine sulfate and lorazepam as needed for comfort. Over the next few days she did become more alert, was noted to have obvious right-sided weakness as well as an expressive aphasia. On the morning of her she was alert and able to spend time with her family. Later in the afternoon she was noted to have with no spontaneous breathing or palpable pulse. No attempts were made at resuscitation as per the patient's and family's previously expressed wishes. - Discharge Plan *PRESCRIPTION DRUG MONITORING PROGRAM REVIEWED*: Not Applicable *COPY OF PRESCRIPTION DRUG MONITORING REPORT IN PATIENT HAILEE: Not Applicable Home Medications: Home Meds Levothyroxine [Synthroid] 88 mcg PO DAILY 05/28/13 [History] ALPRAZolam [Xanax] 1 mg PO BID 05/29/13 [History] Pantoprazole Sodium [Protonix] 40 mg PO DAILY 02/28/15 [History] Acetaminophen 650 mg PO BID PRN 12/30/16 [History] Acetaminophen [Tylenol] 325 mg PO TID 05/07/17 [History] Furosemide [Lasix] 20 mg PO DAILY tablet 05/12/17 [Rx] Spironolactone [Aldactone] 25 mg PO DAILY tablet 05/13/17 [Rx] Venlafaxine HCl [Venlafaxine ER] 225 mg PO DAILY 01/09/19 [History] Aspirin [Halfprin] 162 mg PO DAILY #0 tab.ec 01/16/19 [Rx] OLANZapine [ZyPREXA] 2.5 mg PO BID #60 tablet 01/16/19 [Rx] - Discharge Summary/Plan Comment DC Time >30 min.: No - Patient Data Vitals - Most Recent: Last Vital Signs Temp 99.9 F 06/05/19 09:53 Pulse 81 06/05/19 09:53 Resp 20 06/05/19 09:53 BP 96/77 06/05/19 09:53 Pulse Ox 91 L 06/05/19 09:53 Weight - Most Recent: 160 lb I&O - Last 24 hours: Intake & Output 06/05/19 06/05/19 06/05/19 06:59 14:59 22:59 Intake Total 240 Balance 240 Med Orders - Current: Current Medications Discontinued Medications Acetaminophen (Tylenol) 650 mg PO Q4H PRN PRN Reason: Pain (Mild 1-3)/fever Lorazepam (Ativan Oral Concentrate 1mg/0.5 Ml U/D) 0.5 mg PO Q2H PRN PRN Reason: Anxiety Last Admin: 06/05/19 04:27 Dose: 0.5 mg Morphine Sulfate (Morphine 10 Mg/0.5 Ml Oral Syringe) 2.5 mg BUCCAL Q1H PRN PRN Reason: Pain Last Admin: 06/05/19 00:44 Dose: 2.5 mg Morphine Sulfate (Morphine 10 Mg/0.5 Ml Oral Syringe) 5 mg BUCCAL Q1H PRN PRN Reason: Pain Last Admin: 06/05/19 10:23 Dose: 5 mg Morphine Sulfate (Morphine 10 Mg/0.5 Ml Oral Syringe) 2.5 mg BUCCAL Q1H PRN PRN Reason: Pain Last Admin: 06/05/19 13:15 Dose: 2.5 mg Ondansetron HCl (Zofran) 4 mg IV Q4H PRN PRN Reason: Nausea/Vomiting Polyethylene Glycol (Miralax) 17 gm PO DAILY PRN PRN Reason: Constipation Sodium Chloride (Saline Flush) 10 ml FLUSH ASDIRECTED PRN PRN Reason: Keep Vein Open *Q Meaningful Use (DIS) - VTE *Q VTE Mechanical Contraindications *Q: Tx/Proc Refused byPt VTE Pharmacological Contraindications *Q: Not Candidate LT Anticoag VTE Anticoagulation Contraindications: Med Refused by Patient
== END 2019-06-05 17:37 | disposition expired ==
LOC: JP.ED 10:41 → JP.MS 13:50 → JP.2SS 06-04 13:15
PROVIDERS: ADMIT Hospitalist; ATTEND Hospitalist
DX: I21.9 Acute myocardial infarction, unspecified (principal); I63.9 Cerebral infarction, unspecified; R40.4 Transient alteration of awareness; I10 Essential (primary) hypertension; F32.9 Major depressive disorder, single episode, unspecified; E03.9 Hypothyroidism, unspecified; Z79.899 Other long term (current) drug therapy; Z88.1 Allergy status to other antibiotic agents; Z91.040 Latex allergy status; Z88.2 Allergy status to sulfonamides; Z88.5 Allergy status to narcotic agent; Z88.8 Allergy status to other drugs, medicaments and biological substances; Z95.1 Presence of aortocoronary bypass graft; Z95.5 Presence of coronary angioplasty implant and graft
CPT/HCPCS: 36415; 51702; 70450; 80048; 84484; 85027; 93005; 93010; 99285-25; A9270-GY; G0378